=== PATIENT | female | born 1945 | race Caucasian/White ===

== ENCOUNTER 2019-07-29 10:40 | Emergency (ER) | payer MEDICARE ==
[2019-07-29 11:16] LABS: Absolute Lymphocytes (CBC) 1.4 K/uL (0.7-4.9); Basophils % 1.1 % (0-1.3); Hematocrit 39.5 % (36.0-45.0); Lymphocytes % 19.5 % (15.3-44.8)
[2019-07-29 11:22] LABS: Protime INR 1.07
[2019-07-29 11:39] LABS: ALT/SGPT 15 U/L (12-78); AST/SGOT 13 U/L (15-37); Albumin 3.5 g/dL (3.4-5.0); Alkaline Phosphatase 84 U/L (45-117); BUN Blood Urea Nitrogen 16 mg/dL (7-18); Bicarbonate 29 mmol/L (21-32); Bilirubin Direct 0.2 mg/dL (0-0.2); Bilirubin Total 0.5 mg/dL (0.2-1.0); Glucose Level 110 mg/dL (74-106); Magnesium 1.8 mg/dL (1.8-2.4); NT PRO-BNP 356 pg/mL (<125); Potassium 4.4 mmol/L (3.5-5.1); Protein, Total 7.2 g/dL (6.4-8.2); Sodium Level 139 mmol/L (136-145); Troponin (Emerg Dept Use Only) < 0.02 ng/mL (0.0-0.045)
--- NOTE | 2019-07-29 11:59 | RAD REPORT ---
EXAM DESCRIPTION: CT - Angio Aorta For Dissection - 07/29/2019 11:44 am CLINICAL HISTORY: Chest pain radiating to the back. SOB similar to symptoms prior to discection repair COMPARISON: No comparisonsChest For Pe Angio dated 06/23/2019 TECHNIQUE: CT angiography of the aorta was performed with MIPs. All CT scans are performed using dose optimization technique as appropriate and may include automated exposure control or mA/KV adjustment according to patient size. FINDINGS: A left aortic arch is present with normal branching pattern of the great vessels.Stent is present in the descending thoracic aorta.No evidence of stent leakage. No acute dissection or aneurys m. Atheromatous calcification is seen at the origin of the visceral arteries. The right renal artery is quite diminutive. 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 Limited contrast opacification of the pulmonary arterial tree is seen. Within this limitation, no martir ss evidence of pulmonary embolism. Several calcified granulomas are present bilaterally. Mild COPD. The liver demonstrates no focal mass or biliary dilatation.The spleen, pancreas, adrenal glands and k idneys are within normal limits for arterial phase imaging. No bowel obstruction, free fluid or abscess.No pathologic enlarged lymphadenopathy identified. Mild multilevel degenerative changes present throughout the thoracic and lumbar spine. Mild degenerat jarret anterolisthesis L4 on 5. IMPRESSION: No acute aortic finding is demonstrated.
--- NOTE | 2019-07-29 12:46 | ER ---
Nurse's Notes [facility] Name: Clare Oleary Age: 74 yrs Sex: Female : 1945 Arrival Date: 07/29/2019 Time: 10:43 Bed 19 Private MD: Diagnosis: Chest pain, unspecified;Shortness of breath;Anxiety disorder, unspecified Presentation: 07/29 10:54 Presenting complaint: Patient states: i was at [facility] and she sent tw2 me here because i had an abnormal Ekg, she sees me every week because in June 23 i had descending aortic dissection and was sent to [place]. 11:08 Transition of care: patient was not received from another setting of care. Onset of tw2 symptoms was July 29, 2019. Risk Assessment: Do you want to hurt yourself or someone else? Patient reports no desire to harm self or others. Initial Sepsis Screen: Does the patient meet any 2 criteria? No. Patient's initial sepsis screen is negative. Does the patient have a suspected source of infection? No. Patient's initial sepsis screen is negative. Care prior to arrival: None. 11:08 Method Of Arrival: Ambulatory tw2 11:08 Acuity: JUNE 3 tw2 Triage Assessment: 11:06 General: Appears in no apparent distress. obese, well groomed, Behavior is calm, tw2 cooperative, appropriate for age. Pain: Denies pain. Historical: - Allergies: 11:08 Triamterene; tw2 11:08 Hydrochlorothiazide; tw2 11:08 Codeine; tw2 - PMHx: 11:08 Myocardial infarction; descending aortic dissection; tw2 - PSHx: 11:08 cardiac stents; tw2 - Immunization history:: Adult Immunizations. - Social history:: Smoking status: . - Ebola Screening: : Patient denies travel to an Ebola-affected area in the 21 days before illness onset. Screenin:09 Abuse screen: Denies threats or abuse. Nutritional screening: No deficits noted. tw2 Tuberculosis screening: No symptoms or risk factors identified. Fall Risk Secondary diagnosis (15 points) impaired mobility. Assessment: 10:50 General: Appears in no apparent distress. obese, well groomed, Behavior is calm, tw2 cooperative, appropriate for age. Pain: Denies pain. Neuro: Level of Consciousness is awake, Oriented to person, place, time, situation. Cardiovascular: Heart tones S1 S2 Patient's skin is warm and dry. Respiratory: Airway is patent Respiratory effort is even, unlabored, Respiratory pattern is regular, symmetrical, Breath sounds are clear bilaterally. GI: No signs and/or symptoms were reported involving the gastrointestinal system. Abdomen is round obese, Bowel sounds present X 4 quads. : No signs and/or symptoms were reported regarding the genitourinary system. EENT: No signs and/or symptoms were reported regarding the EENT system. Derm: No signs and/or symptoms reported regarding the dermatologic system. Musculoskeletal: Range of motion: intact in all extremities. 12:26 Reassessment: Patient appears in no apparent distress at this time. No changes from tw2 previously documented assessment. Patient and/or family updated on plan of care and expected duration. Pain level reassessed. Patient is alert, oriented x 3, equal unlabored respirations, skin warm/dry/pink. 13:03 Reassessment: Patient appears in no apparent distress at this time. No changes from tw2 previously documented assessment. Patient and/or family updated on plan of care and expected duration. Pain level reassessed. Patient is alert, oriented x 3, equal unlabored respirations, skin warm/dry/pink. Vital Signs: 11:06 BP 110 / 93; Pulse 64; Resp 18; Temp 97.5(TE); Pulse Ox 95% on R/A; Pain 1/10; tw2 12:10 BP 110 / 93; Pulse 67; Resp 17; Pulse Ox 95% on R/A; tw2 13:03 BP 140 / 73; Pulse 67; Resp 17; Pulse Ox 99% on R/A; tw2 ED Course: 10:43 Patient arrived in ED. rg4 10:48 Nithya Eng, NOHEMI is Primary Nurse. tw2 10:54 Contreras Lara MD is Attending Physician. kdr 10:54 Arm band placed on. EKG completed in triage. Results shown to . tw2 10:55 Placed in gown. Bed in low position. Side rails up X 1. telemetry monitor on. Pulse ox tw2 on. NIBP on. 11:06 EKG done, by quick service technician. reviewed by Contreras Lara MD. at1 11:07 Initial lab(s) drawn, by me, sent to lab. Inserted saline lock: 20 gauge in right ms forearm, using aseptic technique. Blood collected. 11:09 Triage completed. tw2 11:45 Angio Aorta For Dissection In Process Unspecified. EDMS 13:03 XRAY Chest (1 view) In Process Unspecified. EDMS 13:03 No apparent distress. tw2 13:03 No provider procedures requiring assistance completed. IV discontinued, intact, tw2 bleeding controlled, No redness/swelling at site. Pressure dressing applied. Administered Medications: No medications were administered Outcome: 12:46 Discharge ordered by . kdr 13:03 Discharged to home via wheelchair, with family. tw2 13:03 Condition: stable 13:03 Discharge instructions given to patient, family, Instructed on discharge instructions, follow up and referral plans. Demonstrated understanding of instructions, follow-up care. 13:05 Patient left the ED. tw2 Signatures: Dispatcher [employer] EDMS Contreras Lara MD MD kdr Solis, Maria ms Symone Mena, gun synchronizer EKG Tat1 Nithya Eng RN RN tw2 Sharmila Glez 4
--- NOTE | 2019-07-29 12:47 | EDPHYS ---
Physician Documentation [facility] Name: Clare Oleary Age: 74 yrs Sex: Female : 1945 Arrival Date: 07/29/2019 Time: 10:43 Bed 19 Private MD: ED Physician Contreras Lara HPI: 07/29 11:22 This 74 yrs old Female presents to ER via Ambulatory with complaints of SOB kdr and chest intermittent CP for the last few days. 11:22 The patient has had intermittent CP and SOB for the last 2-3 days. She was seen in a kdr local clinic and then sent to the ED since the patient had some non-specific changes on the ECG. The patient states that she is having s/s similar to prior to her recent aortic dissection repair in the first june. Onset: The symptoms/episode began/occurred gradually, 3 day(s) ago. Severity of symptoms: At their worst the symptoms were mild in the emergency department the symptoms are unchanged. The patient has experienced a previous episode. The patient has been recently seen by a physician: As noted above. Historical: - Allergies: 11:08 Triamterene; tw2 11:08 Hydrochlorothiazide; tw2 11:08 Codeine; tw2 - PMHx: 11:08 Myocardial infarction; descending aortic dissection; tw2 - PSHx: 11:08 cardiac stents; tw2 - Immunization history:: Adult Immunizations. - Social history:: Smoking status: . - Ebola Screening: : Patient denies travel to an Ebola-affected area in the 21 days before illness onset. ROS: 11:22 Constitutional: Negative for fever, chills, and weight loss, Eyes: Negative for injury, kdr pain, redness, and discharge, Neck: Negative for injury, pain, and swelling, Abdomen/GI: Negative for abdominal pain, nausea, vomiting, diarrhea, and constipation, Back: Negative for injury and pain, : Negative for injury, bleeding, discharge, and swelling, MS/Extremity: Negative for injury and deformity, Skin: Negative for injury, rash, and discoloration, Neuro: Negative for headache, weakness, numbness, tingling, and seizure activity. 11:22 Psych: Negative for depression, anxiety, suicide ideation, homicidal ideation, and kdr hallucinations, Allergy/Immunology: Negative for hives, rash, and allergies, Endocrine: Negative for neck swelling, polydipsia, polyuria, polyphagia, and marked weight changes, Hematologic/Lymphatic: Negative for swollen nodes, abnormal bleeding, and unusual bruising. Exam: 11:22 Constitutional: This is a well developed, well nourished patient who is awake, alert, kdr and in no acute distress. Head/Face: Normocephalic, atraumatic. Eyes: Pupils equal round and reactive to light, extra-ocular motions intact. Lids and lashes normal. Conjunctiva and sclera are non-icteric and not injected. Cornea within normal limits. Periorbital areas with no swelling, redness, or edema. Neck: Trachea midline, no thyromegaly or masses palpated, and no cervical lymphadenopathy. Supple, full range of motion without nuchal rigidity, or vertebral point tenderness. No Meningismus. Chest/axilla: Normal chest wall appearance and motion. Nontender with no deformity. No lesions are appreciated. Cardiovascular: Regular rate and rhythm with a normal S1 and S2. No gallops, murmurs, or rubs. Normal PMI, no JVD. No pulse deficits. Respiratory: Lungs have equal breath sounds bilaterally, clear to auscultation and percussion. No rales, rhonchi or wheezes noted. No increased work of breathing, no retractions or nasal flaring. Abdomen/GI: Soft, non-tender, with normal bowel sounds. No distension or tympany. No guarding or rebound. No evidence of tenderness throughout. Back: No spinal tenderness. No costovertebral tenderness. Full range of motion. Skin: Warm, dry with normal turgor. Normal color with no rashes, no lesions, and no evidence of cellulitis. MS/ Extremity: Pulses equal, no cyanosis. Neurovascular intact. Full, normal range of motion. Neuro: Awake and alert, GCS 15, oriented to person, place, time, and situation. Cranial nerves II-XII grossly intact. Motor strength 5/5 in all extremities. Sensory grossly intact. Cerebellar exam normal. Normal gait. Psych: Awake, alert, with orientation to person, place and time. Behavior, mood, and affect are within normal limits. Vital Signs: 11:06 BP 110 / 93; Pulse 64; Resp 18; Temp 97.5(TE); Pulse Ox 95% on R/A; Pain 1/10; tw2 12:10 BP 110 / 93; Pulse 67; Resp 17; Pulse Ox 95% on R/A; tw2 13:03 BP 140 / 73; Pulse 67; Resp 17; Pulse Ox 99% on R/A; tw2 MDM: 11:22 Data reviewed: vital signs, nurses notes, lab test result(s), EKG, radiologic studies. kdr Counseling: I had a detailed discussion with the patient and/or guardian regarding: the historical points, exam findings, and any diagnostic results supporting the discharge/admit diagnosis, lab results, radiology results. 12:46 Patient medically screened. kdr 07/29 10:54 Order name: Basic Metabolic Panel; Complete Time: 12:42 kdr 07/29 10:54 Order name: CBC with Diff; Complete Time: 12:42 kdr 07/29 10:54 Order name: LFT's; Complete Time: 12:42 kdr 07/29 10:54 Order name: Magnesium; Complete Time: 12:42 kdr 07/29 10:54 Order name: NT PRO-BNP; Complete Time: 12:42 kdr 07/29 10:54 Order name: PT-INR; Complete Time: 12:42 kdr 07/29 10:54 Order name: Troponin (emerg Dept Use Only); Complete Time: 12:42 kdr 07/29 10:54 Order name: XRAY Chest (1 view) kdr 07/29 10:54 Order name: EKG; Complete Time: 10:56 kdr 07/29 10:54 Order name: Cardiac monitoring; Complete Time: 11:07 kdr 07/29 10:54 Order name: EKG - Nurse/Tech; Complete Time: 11:07 kdr 07/29 10:54 Order name: IV Saline Lock; Complete Time: 11:07 kdr 07/29 11:26 Order name: Angio Aorta For Dissection; Complete Time: 12:42 EDMS 07/29 10:54 Order name: Labs collected and sent; Complete Time: 11:07 kdr 07/29 10:54 Order name: O2 Per Protocol; Complete Time: 11:07 kdr 07/29 10:54 Order name: O2 Sat Monitoring; Complete Time: 11:07 kdr Administered Medications: No medications were administered Disposition: 07/29/19 12:46 Discharged to Home. Impression: Chest pain, unspecified, Shortness of breath, Anxiety disorder, unspecified. - Condition is Stable. - Discharge Instructions: Shortness of Breath, [id number], Nonspecific Chest Pain, [id number], Generalized Anxiety Disorder. - Medication Reconciliation Form, Thank You Letter form. - Follow up: Private Physician; When: 2 - 3 days; Reason: If symptoms return, Further diagnostic work-up, Recheck today's complaints, Continuance of care, Re-evaluation by your physician. - Problem is an ongoing problem. - Symptoms are unchanged. Signatures: Dispatcher [employer] [facility] Contreras Lara MD MD [facility] Nithya Eng RN RN tw2 Corrections: (The following items were deleted from the chart) 11:26 11:07 Chest Angio+CT.RAD.BRZ ordered. [facility] 13:05 12:46 07/29/2019 12:46 Discharged to Home. Impression: Chest pain, unspecified; tw2 Shortness of breath; Anxiety disorder, unspecified. Condition is Stable. Forms are Medication Reconciliation Form, Thank You Letter, Antibiotic Education, Prescription Opioid Use. Follow up: Private Physician; When: 2 - 3 days; Reason: If symptoms return, Further diagnostic work-up, Recheck today's complaints, Continuance of care, Re-evaluation by your physician. Problem is an ongoing problem. Symptoms are unchanged. kdr
--- NOTE | 2019-07-29 13:17 | RAD REPORT ---
EXAM DESCRIPTION: RAD - Chest Single View - 07/29/2019 1:02 pm CLINICAL HISTORY: Chest pain, abnormal EKG COMPARISON: June 23 portable chest TECHNIQUE: AP portable chest image was obtained 1233 hours . FINDINGS: Lung volumes are low. No peripheral mass or consolidation. Acute failure or volume overloa d are not suspected. Heart size is stable. No measurable pleural effusion and no pneumothorax. No acu te bony abnormality seen. Descending thoracic aortic stent has been placed since prior imaging. IMPRESSION: No acute cardiopulmonary process.
[2019-07-29 13:18] VITALS: TEMP 97.5
[2019-07-29 13:23] VITALS: BP 140/73; O2SAT 99
--- NOTE | 2019-07-29 17:17 | EKG ---
Test Date: 2019-07-29 Test Time: 10:54:00 Conservation Scientist: FREDO MEASUREMENT RESULTS: Intervals: Rate: 65 AL: 178 QRSD: 80 QT: 398 QTc: 413 [place]: P: 25 AL: 178 QRS: -34 T: 39 INTERPRETIVE STATEMENTS: Normal sinus rhythm Left axis deviation Septal infarct, age undetermined Inferior infarct, age undetermined Abnormal ECG Compared to ECG 06/23/2019 21:22:47 Left-axis deviation now present Myocardial infarct finding now present Sinus tachycardia no longer present Electronically Signed On 07-29-19 17:16:29 CDT by James Jose
== END 2019-07-29 13:05 | disposition home or self-care (01) ==
LOC: ER 10:40
DX: R07.9 Chest pain, unspecified (principal); F41.9 Anxiety disorder, unspecified; I25.2 Old myocardial infarction; Z88.5 Allergy status to narcotic agent; Z88.8 Allergy status to other drugs, medicaments and biological substances
CPT/HCPCS: 93005; 85025; 80048; 36415; 83735; 85610; 80076; 84484; 83880; 71275; 74175; 71045; 99284; Q9967

== ENCOUNTER 2024-08-21 00:12 | Inpatient (IN) | payer MEDICARE, OTHER ==
[2024-08-21 01:07] LABS: Absolute Basophils 0.1 K/uL (0-0.5); Absolute Eosinophils 0.1 K/uL (0-0.5); Absolute Lymphocytes (CBC) 0.9 K/uL (0.7-4.9); Absolute Monocytes 1.6 K/uL (0.1-1.3); Absolute Neutrophil 6.9 K/uL (1.8-8.0); Basophils % 0.6 % (0-1.3); Hematocrit 54.2 % (36.0-45.0); Hemoglobin 16.3 g/dL (12.0-15.0); Lymphocytes % 9.9 % (15.3-44.8); MCH 27.1 pg (27.0-35.0); MCHC 30.1 g/dL (32.0-36.0); MPV 9.8 fL (7.6-11.3); Monocytes % 16.3 % (3.3-12.3); Neutrophils % 72.2 % (41.7-73.7); Nucleated Red Blood Cells % 0.4 % (0-0); Platelets 214 thou/uL (152-406); RBC Red Blood Cell Count 6.02 M/uL (3.86-4.86); Red Cell Distribution Width 17.5 % (12.1-15.2)
[2024-08-21 01:20] LABS: Anion Gap 8.4 mEq/L (5.0-15.0); Potassium 4.4 mEq/L (3.5-5.1)
[2024-08-21 01:24] LABS: Troponin High Sensitivity 119.9 pg/mL (<58.9)
--- NOTE | 2024-08-21 01:49 | EDPHYS ---
Physician Documentation [facility] Name: Clare Oleary Age: 79 yrs Sex: Female : 1945 Arrival Date: 08/21/2024 Time: 00:12 Bed 14 Private MD: ED Physician Yo Cotton HPI: 08/21 00:15 This 79 yrs old Female presents to ER via Unassigned with complaints of ec2 Shortness Of Breath. 00:15 Patient arrives today for evaluation of shortness of breath. Patient reports that she ec2 has been having worsening shortness of breath along with a wet cough. Patient reports she has lower extremity edema as well. Is on Lasix 40 mg daily and states that she has been having decreased urine output. Patient reports no chest pain. . 00:17 EMS reports that they noted her oxygen level to be in the upper 80s and subsequently ec2 placed on oxygen.. Historical: - Allergies: 01:29 Codeine; rg5 01:29 hydrochlorothiazide; rg5 01:29 Triamterene; rg5 - PMHx: 01:29 Hypertensive disorder; Diabetes mellitus; Congestive heart failure; rg5 - PSHx: 01:29 Coronary artery bypass graft; Coronary Angioplasty; pacemaker; rg5 - Immunization history:: Adult Immunizations up to date. - Infectious Disease History:: Denies. - Social history:: Smoking status: Patient denies any tobacco usage or history of. ROS: 00:15 Constitutional: as per hpi ec2 Exam: 00:15 Constitutional: GEN: NAD Head: atraumatic Eyes: EOMI Ears: External ears are ec2 normal. CV: regular rate, 2+ bilateral lower extremity edema LUNGS: no respiratory distress ABD: non-distended SKIN: no evidence of rashes MSK: no evidence of trauma Vital Signs: 00:15 BP 106 / 63; Pulse 90; Resp 19; Temp 98(O); Pulse Ox 88% on 4 lpm NC; Weight 106.14 kg; rg5 Height 5 ft. 0 in. ; 00:30 BP 106 / 63; Pulse 89; Resp 19; Temp 98; Pulse Ox 89% on 4 lpm NC; rg5 01:00 BP 109 / 80; Pulse 89; Resp 18; Pulse Ox 82% on 15 lpm Non-rebreather mask; rg5 01:38 BP 122 / 82; Pulse 87; Resp 18; Temp 98(O); Pulse Ox 97% on bipap; rg5 02:07 BP 115 / 87; Pulse 85; Resp 20; Pulse Ox 96% on BiPAP; rg5 02:45 BP 90 / 68; Pulse 88; Resp 20; Pulse Ox 94% on BiPAP; rg5 03:37 BP 101 / 70; Pulse 81; Resp 20; Pulse Ox 94% on BiPAP; rg5 04:45 BP 122 / 76; Pulse 80; Resp 20; Pulse Ox 95% on BiPAP; rg5 00:15 Body Mass Index 45.70 (106.14 kg, 152.4 cm) rg5 MDM: 00:14 Medical Screening Exam initiated ec2 00:15 Data reviewed: vital signs. ED course: Patient arrives today for evaluation of ec2 shortness of breath. Examination remarkable for cardiopulmonary findings as noted above. Will obtain lab work, EKG, chest x-ray. Differential includes volume overload, ACS, electrolyte disturbances, anemia . 00:29 ED course: EKG independently reviewed and interpreted by me, shows nsr, rate of 90, ec2 LBBB noted, no acute ischemic changes noted. 01:19 ED course: Patient with saturations in the mid 80s with oxygen, placed patient on BiPAP.ec2 01:26 ED course: Metabolic profile shows renal dysfunction with a creatinine of 2.35 and a ec2 GFR of 21. BNP elevated at 9700. Troponin at 120. Will give the patient full dose aspirin, will give the patient Lasix. . 01:32 ED course: Patient with elevated troponin, I suspect this is likely secondary to demand ec2 ischemia given the patient's volume overload as well as shortness of breath and hypoxia. 01:46 ED course: On reassessment patient is breathing comfortably on BiPAP, no significant ec2 respiratory distress appreciated. Will admit for diuresis, volume overload.. 08/21 00:15 Order name: Basic Metabolic Panel; Complete Time: ec2 08/21 00:15 Order name: CBC with Diff; Complete Time: ec2 08/21 00:15 Order name: NT PRO-BNP; Complete Time: ec2 08/21 00:15 Order name: Troponin HS; Complete Time: ec2 08/21 03:33 Order name: Lactate w/ 2H reflex if indic. EDMS 08/21 03:33 Order name: Liver (Hepatic) Function EDMS 08/21 03:33 Order name: NT PRO-BNP EDMS 08/21 03:33 Order name: Thyroid Stimulating Hormone EDMS 08/21 03:33 Order name: Urinalysis w/ reflexes EDMS 08/21 03:33 Order name: Basic Metabolic Panel EDMS 08/21 03:33 Order name: Basic Metabolic Panel EDMS 08/21 03:33 Order name: CBC with Automated Diff EDMS 08/21 03:33 Order name: CBC with Automated Diff EDMS 08/21 03:33 Order name: Lipid Profile EDMS 08/21 03:33 Order name: Lipid Profile EDMS 08/21 03:33 Order name: Magnesium EDMS 08/21 03:33 Order name: Magnesium EDMS 08/21 03:33 Order name: Phosphorus EDMS 08/21 03:33 Order name: Phosphorus EDMS 08/21 03:33 Order name: PTT, Activated Partial Thromb EDMS 08/21 03:34 Order name: PTT, Activated Partial Thromb EDMS 08/21 03:34 Order name: Troponin High Sensitivity EDMS 08/21 03:34 Order name: Troponin High Sensitivity EDMS 08/21 03:34 Order name: Troponin High Sensitivity EDMS 08/21 03:34 Order name: Troponin High Sensitivity EDMS 08/21 00:15 Order name: XRAY Chest (1 view) ec2 08/21 03:33 Order name: CONS Physician Consult EDMS 08/21 00:15 Order name: Cardiac monitoring; Complete Time: 00:29 ec2 08/21 00:15 Order name: EKG - Nurse/Tech; Complete Time: 00:29 ec2 08/21 00:15 Order name: IV Saline Lock; Complete Time: 00:45 ec2 08/21 00:15 Order name: Labs collected and sent; Complete Time: 00:45 ec2 08/21 00:15 Order name: O2 Per Protocol; Complete Time: 00:29 ec2 08/21 00:15 Order name: O2 Sat Monitoring; Complete Time: 00:30 ec2 Administered Medications: 02:02 Drug: Furosemide IVP 80 mg IVP once; give over 2 minutes Route: IVP; Site: left forearm;rg5 02:45 Follow up: Response: No adverse reaction rg5 02:02 Drug: Aspirin PO Chewable Tablet 324 mg PO once; 81 mg tablets x 4 Route: PO; rg5 02:45 Follow up: Response: No adverse reaction rg5 Disposition: 01:47 Critical Care:. ec2 Disposition Summary: 08/21/24 01:48 Hospitalization Ordered Notes: Hospitalization Status: Inpatient Admission ec2 Provider: Brijesh Carbajal ec2 Condition: Stable ec2 Problem: an acute exacerbation ec2 Symptoms: have improved ec2 Bed/Room Type: Standard ec2 Location: Intensive Care Unit(08/21/24 04:26) cg Room Assignment: 6-(08/21/24 04:26) cg Diagnosis - Heart failure, unspecified ec2 - Acute respiratory failure ec2 - Elevated Troponin ec2 Forms: - Medication Reconciliation Form ec2 - SBAR form ec2 - Leadership Thank You Letter ec2 Critical care time excluding procedures: 01:47 Critical care time: Bedside Care: 30 minutes, Consultation: 5 minutes. Total time: 35 ec2 minutes Signatures: Dispatcher [employer] Shelby Pate, NOHEMI RN Clarice Alvarez rv1 Yo Cotton MD MD ec2 Amadeo Garcia RN RN rg5 Corrections: (The following items were deleted from the chart) 00:15 00:15 BASIC METABOLIC PANEL+C.LAB.BRZ ordered. EDMS EDMS 00:15 00:15 CBC+H.LAB.BRZ ordered. EDMS EDMS 00:15 00:15 PROBNP+C.LAB.BRZ ordered. EDMS EDMS 00:15 00:15 Troponin High Sensitivity+C.LAB.BRZ ordered. EDMS EDMS 00:15 00:15 Chest Single View+RAD.RAD.BRZ ordered. EDMS EDMS 01:36 01:29 PMHx: descending aortic dissection; 5 rg5 01:36 01:29 PMHx: Myocardial infarction; 5 rg5 01:36 01:29 PSHx: section; 5 rg5 01:36 01:29 PSHx: Appendectomy; 5 rg5 01:36 01:29 PSHx: section; 5 rg5 01:36 01:29 PSHx: Coronary Angioplasty; 5 rg5 03:38 01:48 ec2 rv1 04:25 03:38 402 rv1 cg 04: 01:48 Telemetry/[facility] ([facility]) ec2 cg 04: 04:25 cg cg
--- NOTE | 2024-08-21 01:49 | ER ---
Nurse's Notes [facility] Name: Clare Oleary Age: 79 yrs Sex: Female : 1945 Arrival Date: 08/21/2024 Time: 00:12 Bed 14 Private MD: Diagnosis: Heart failure, unspecified;Acute respiratory failure;Elevated Troponin Presentation: 08/21 00:15 Chief complaint: EMS states: patient called she is having shortness of breath and rg5 getting more weaker to move around, she also having bilateral edema on lower extremities. 00:15 Coronavirus screen: Vaccine status: Patient reports receiving the 1st dose of the Covid rg5 vaccine. Client denies travel out of the [place] in the last 14 days. Ebola Screen: Patient negative for fever greater than or equal to 101.5 degrees Fahrenheit, and additional compatible Ebola Virus Disease symptoms. Initial Sepsis Screen: Does the patient meet any 2 criteria? No. Patient's initial sepsis screen is negative. Does the patient have a suspected source of infection? No. Patient's initial sepsis screen is negative. Risk Assessment: Do you want to hurt yourself or someone else? Patient reports no desire to harm self or others. Onset of symptoms was August 20, 2024. Care prior to arrival: Medication(s) given: Albuterol Neb x 1, Oxygen administered. via nasal cannula. 00:15 Method Of Arrival: EMS: [facility] rg5 00:15 Acuity: JUNE 3 rg5 Triage Assessment: 01:29 General: Appears in no apparent distress. uncomfortable, Behavior is calm, cooperative. rg5 Pain: Denies pain. EENT: No signs and/or symptoms were reported regarding the EENT system. Neuro: Level of Consciousness is awake, alert, Oriented to person, place, time. Cardiovascular: Patient's skin is warm and dry. Rhythm is sinus rhythm. Respiratory: Reports shortness of breath cough that is productive, Airway is patent Trachea midline Respiratory effort is even, unlabored, Respiratory pattern is regular, symmetrical, Onset: The symptoms/episode began/occurred yesterday, the patient has mild shortness of breath. GI: Abdomen is obese, Bowel sounds present X 4 quads. Abd is soft and non tender. : No signs and/or symptoms were reported regarding the genitourinary system. Derm: Skin is intact, Skin is dry, Skin is normal, Skin temperature is warm. Musculoskeletal: Circulation, motion, and sensation intact. Range of motion: intact in all extremities, Swelling present in right leg and left leg. Historical: - Allergies: 01:29 Codeine; rg5 01:29 hydrochlorothiazide; rg5 01:29 Triamterene; rg5 - PMHx: :29 Hypertensive disorder; Diabetes mellitus; Congestive heart failure; rg5 - PSHx: :29 Coronary artery bypass graft; Coronary Angioplasty; pacemaker; rg5 - Immunization history:: Adult Immunizations up to date. - Infectious Disease History:: Denies. - Social history:: Smoking status: Patient denies any tobacco usage or history of. Screenin:30 [facility] ED Fall Risk Assessment (Adult) History of falling in the last 3 months, rg5 including since admission Yes- single mechanical fall (1 pt) Confusion or Disorientation No (0 pts) Intoxicated or Sedated No (0 pts) Impaired Gait Yes (1 pt) Mobility Assist Device Used Yes (1 pt) Altered Elimination Yes (1 pt) Score/Fall Risk Level 3 or more points = High Risk Oriented to surroundings, Maintained a safe environment, Hourly rounding (assess needs \T\ fall precautionary measures) done. Abuse screen: Denies threats or abuse. Nutritional screening: No deficits noted. Tuberculosis screening: No symptoms or risk factors identified. Assessment: 00:35 Reassessment: No changes from previously documented assessment. Patient and/or family rg5 updated on plan of care and expected duration. Pain level reassessed. Patient is alert, oriented x 3, equal unlabored respirations, skin warm/dry/pink. 01:35 Reassessment: No changes from previously documented assessment. Patient and/or family rg5 updated on plan of care and expected duration. Pain level reassessed. Cardiovascular: Reports shortness of breath. Cardiovascular: Patient's skin is warm and dry. Respiratory: Airway is patent Trachea midline Breath sounds are coarse bilaterally. 02:25 Reassessment: Patient and/or family updated on plan of care and expected duration. Pain rg5 level reassessed. Patient is alert, oriented x 3, equal unlabored respirations, skin warm/dry/pink. Patient states symptoms have improved. 03:33 Reassessment: Patient and/or family updated on plan of care and expected duration. Pain rg5 level reassessed. Patient is alert, oriented x 3, equal unlabored respirations, skin warm/dry/pink. Patient states symptoms have improved. Vital Signs: 00:15 BP 106 / 63; Pulse 90; Resp 19; Temp 98(O); Pulse Ox 88% on 4 lpm NC; Weight 106.14 kg; rg5 Height 5 ft. 0 in. ; 00:30 BP 106 / 63; Pulse 89; Resp 19; Temp 98; Pulse Ox 89% on 4 lpm NC; rg5 01:00 BP 109 / 80; Pulse 89; Resp 18; Pulse Ox 82% on 15 lpm Non-rebreather mask; rg5 01:38 BP 122 / 82; Pulse 87; Resp 18; Temp 98(O); Pulse Ox 97% on bipap; rg5 02:07 BP 115 / 87; Pulse 85; Resp 20; Pulse Ox 96% on BiPAP; rg5 02:45 BP 90 / 68; Pulse 88; Resp 20; Pulse Ox 94% on BiPAP; rg5 03:37 BP 101 / 70; Pulse 81; Resp 20; Pulse Ox 94% on BiPAP; rg5 04:45 BP 122 / 76; Pulse 80; Resp 20; Pulse Ox 95% on BiPAP; rg5 00:15 Body Mass Index 45.70 (106.14 kg, 152.4 cm) rg5 ED Course: 00:14 Patient arrived in ED. ec2 00:14 Yo Cotton MD is Attending Physician. ec2 00:29 Amadeo Garcia, NOHEMI is Primary Nurse. rg5 00:30 Patient has correct armband on for positive identification. Bed in low position. Call rg5 light in reach. Side rails up X 1. Adult w/ patient. 00:30 No provider procedures requiring assistance completed. Inserted saline lock: 20 gauge rg5 in left forearm, using aseptic technique. Blood collected. Flushed with 10 mL NS. 00:50 XRAY Chest (1 view) In Process Unspecified. EDMS 01:29 Triage completed. rg5 01:29 Arm band placed on right wrist. EKG completed in triage. Results shown to MD. rg5 01:48 Brijesh Carbajal is Hospitalizing Provider. ec2 04:47 Provided Education on: needs for admit. rg5 04:47 Patient admitted, IV remains in place. rg5 Administered Medications: 02:02 Drug: Furosemide IVP 80 mg IVP once; give over 2 minutes Route: IVP; Site: left forearm;rg5 02:45 Follow up: Response: No adverse reaction rg5 02:02 Drug: Aspirin PO Chewable Tablet 324 mg PO once; 81 mg tablets x 4 Route: PO; rg5 02:45 Follow up: Response: No adverse reaction rg5 Medication: 00:30 VIS not applicable for this client. rg5 Outcome: 01:48 Decision to Hospitalize by Provider. ec2 04:46 Admitted to ICU accompanied by nurse, via stretcher, with oxygen, rg5 04:46 Condition: stable 04:46 Instructed on the need for admit, 05:27 Patient left the ED. rg5 Signatures: Dispatcher [employer] EDMS Yo Cotton MD MD ec2 Amadeo Garcia RN RN rg5 Corrections: (The following items were deleted from the chart) 01:36 01:29 PMHx: descending aortic dissection; rg5 rg5 01:36 01:29 PMHx: Myocardial infarction; rg5 rg5 01:36 01:29 PSHx: section; rg5 rg5 01:36 01:29 PSHx: Appendectomy; rg5 rg5 01:36 01:29 PSHx: section; rg5 rg5 01:36 01:29 PSHx: Coronary Angioplasty; rg5 rg5 03:51 00:15 BP 106 / 63; Pulse 90bpm; Resp 19bpm; Pulse Ox 88% 4 lpm Nasal Cannula; Temp 98F rg5 Oral; rg5 04:52 01:29 Musculoskeletal: Circulation, motion, and sensation intact. Range of motion: rg5 intact in all extremities, rg5 04:56 04:45 BP 122 / 76; Pulse 80bpm; Resp 18bpm; Pulse Ox 95% BiPAP; rg5 rg5 04:57 02:07 BP 115 / 87; Pulse 85bpm; Resp 18bpm; Pulse Ox 96% BiPAP; rg5 rg5 04:57 02:45 BP 90 / 68; Pulse 88bpm; Resp 19bpm; Pulse Ox 94% BiPAP; 5 rg5 04:57 03:37 BP 101 / 70; Pulse 81bpm; Resp 18bpm; Pulse Ox 94% BiPAP; rg5 rg5
[2024-08-21] MEDS ORDERED: ASPIRIN 81 MG CHEWABLE TABLET ONE (01:53)
[2024-08-21] MEDS ORDERED: FUROSEMIDE 40 MG/4 ML VIAL ONE (01:53)
--- NOTE | 2024-08-21 03:38 | RAD REPORT ---
EXAM: XR Chest, 1 View CLINICAL HISTORY: Cough, dyspnea. TECHNIQUE: Frontal view of the chest. COMPARISON: No relevant prior studies available. FINDINGS: Lungs: Calcified granuloma on the right. Left basilar opacification partially obscuring the cardiac border. Pleural space: Possible left pleural effusion. No pneumothorax. Heart: The cardiac silhouette is moderately enlarged, in part accentuated by portable technique. Mediastinum: Calcified mediastinal and hilar lymph nodes. Bones/joints: Moderate to severe degenerative changes at the glenohumeral joints bilaterally. Multi level spondylosis. No acute fracture. Vasculature: Descending thoracic aortic endovascular stent. Tubes, lines and devices: Left chest wall dual-lead pacer. Upper abdomen: Elevation of the right hemidiaphragm. IMPRESSION: Left basilar opacification (atelectasis and/or infiltrate). Possible left pleural effusion. Electronically signed by: Moe Mc MD 08/21/2024 02:42 AM CDT RP Due to temporary technical issues with the PACS/[employer] reporting system, reports are being gus d by the in-house radiologist without review as a courtesy to ensure prompt reporting the interpreting radiologist is fully responsible for the content of the report. Transcribed Date/Time: 08/21/2024 3:37 AM
--- NOTE | 2024-08-21 03:42 | P.HP ---
Certification for Inpatient With expected LOS: <2 Midnights Practitioner: I am a practitioner with admitting privileges, knowledge of patient current condition, hospital course, and medical plan of care. Services: Services provided to patient in accordance with Admission requirements found in Title 42 Section 412.3 of the Code of Federal Regulations Patient History Date of Service: 08/21/24 Reason for admission: hypoxia, heart failure exacerbation History of Present Illness: 79-year-old female with a past medical history of hypertension, DM, CHF, and aortic dissection repair (06/2019) presented to the emergency room complaining of shortness of breath for unknown amount of days. The patient's family member is present at bedside, and provides the majority of this history. The patient is unable to provide a history at this time. Upon arrival to the emergency department the patient was placed on BiPAP for hypoxia, given Lasix, and ASA 325 mg. Also the patient has elevated troponins. It is unknown when the patient's last CHF exacerbation was, but the patient's family member believes it was sometime last year. Allergies codeine [Codeine] Allergy (Severe, Verified 04/10/17 11:24) Nausea/Vomiting hydrochlorothiazide [From Maxzide] Allergy (Severe, Verified 04/10/17 11:24) Anaphylaxis triamterene [From Maxzide] Allergy (Severe, Verified 04/10/17 11:24) Anaphylaxis maxide Allergy (Severe, Uncoded 04/10/17 11:24) Anaphylaxis Home Medications: Amlodipine [Norvasc*] 5 mg PO DAILY WITH BREAKFAST #30 tab 07/19/16 Furosemide [Lasix*] 40 mg PO BID #60 tab 07/19/16 Levothyroxine [Synthroid*] 0.1 mg PO [id number] #30 tab 07/19/16 Losartan Potassium [Cozaar*] 100 mg PO DAILY #60 tablet 07/19/16 Metformin ER [Glucophage ER*] 500 mg PO DAILY #30 tab.sa 07/19/16 Potassium Oral Tab [Klor-Con 10 mEq Tab*] 20 meq PO DAILY #60 tab 07/19/16 Pravastatin [Pravachol*] 1 tab PO BEDTIME #30 tab 07/19/16 carvediloL [Coreg*] 25 mg PO BID #60 tab 07/19/16 Aspirin/Calcium Carbonate/Mag [Aspirin Buffered 325 mg Tab] 325 mg PO BID 02/16/17 Calcium Carbonate [Calcium] 600 mg PO DAILY 02/16/17 Ipratropium Mdi [Atrovent Hf Inhaler*] 200 puff IH TID PRN 02/16/17 Ubidecarenone/Vitamin E Mixed [[id number] E 100 mg-10 Unit Sfg] 1 each PO DAILY 02/16/17 raNITIdine HCl [Ranitidine HCl] 75 mg PO DAILY 02/16/17 - Past Medical/Surgical History Diabetic: Yes -: HTN -: Hypothyroid -: Hyperlipidemia -: CHF -: DM -: R total knee -: Reaux-Y bypass -: ACL repair 1979 -: Tonsillectomy -: aortic dissection repair 06/2019 - Family History Father -: Heart disease, Cancer Mother -: Cancer Sister -: Heart disease - Social History Smoking Status: Unknown if ever smoked Alcohol use: No CD- Drugs: No Caffeine use: Yes Review of Systems Respiratory: Cough, Shortness of Breath Cardiovascular: Edema Physical Examination - Vital Signs Temperature: 98 F Blood Pressure: 92/79 Pulse: 80 Respirations: 18 Pulse Ox (%): 94 - Physical Exam General: Mild distress HEENT: Atraumatic, Normocephalic Neck: No Thyromegaly Respiratory: Crackles/rales, Rhonchi/gurgles Cardiovascular: No gallops, No rubs, Edema Gastrointestinal: Normal bowel sounds, Non-distended Musculoskeletal: Swelling (b/l lower extremities), Warmth Neurological: Abnormal strength, Abnormal sensation - Studies Laboratory Data (last 24 hrs) 08/21/24 08/21/24 00:45 00:45 WBC 9.60 Hgb 16.3 H Hct 54.2 H Plt Count 214 Sodium 139 Potassium 4.4 BUN 46 H Creatinine 2.35 H Glucose 163 H Assessment and Plan - Problems (Diagnosis) (1) Hypoxia Current Visit: Yes Status: Acute (2) Heart failure Current Visit: Yes Status: Acute - Plan Hypoxia- Admit to the ICU Remain on BiPAP CXR revealed possible left-sided pleural effusion (awaiting final radiology read) Insert external female catheter (purewick) to monitor urinary output Heart failure: IV Lasix twice daily ASA 25 mg daily Trend troponins and other lab work Trend BNP - Advance Directives Does patient have a Living Will: No Does patient have a Durable POA for Healthcare: No - Code Status/Comfort Care Code Status: Full Code
[2024-08-21 05:12] LABS: Albumin 3.1 g/dL (3.4-5.0); Albumin/Globulin Ratio 0.8 (1.1-1.8); Bilirubin Direct 0.3 mg/dL (0-0.2); Bilirubin Indirect, Calculated 0.2 mg/dL (0.2-0.8); Bilirubin Total 0.5 mg/dL (0.2-1.0); Globulin 3.7 g/dL (2.3-3.5); Protein, Total 6.8 g/dL (6.4-8.2); Thyroid Stimulating Hormone 2.27 uIU/mL (0.358-3.740)
[2024-08-21] MEDS: CALCIUM CARBONATE 500 MG TAB PO SCH (09:00)
[2024-08-21] MEDS ORDERED: HOME MED 1 EA UNK (Rosuvastatin Calcium [Crestor] 20 MG Tablet) PO SCH (09:00)
[2024-08-21] MEDS: FERROUS SULFATE 325 MG TAB PO SCH (09:00)
[2024-08-21] MEDS: allopurinoL 300 MG TAB PO SCH (09:00)
[2024-08-21] MEDS: PANTOPRAZOLE 40MG TABLET PO SCH (09:00)
[2024-08-21] MEDS: ASPIRIN 325 MG TAB PO SCH (09:00)
[2024-08-21] MEDS: SERTRALINE HCL 100 MG TAB PO SCH (09:00)
[2024-08-21] MEDS ORDERED: PANTOPRAZOLE 20 MG PO SCH (09:00)
[2024-08-21] MEDS: POTASSIUM CL SA 10 MEQ TAB PO SCH (09:00)
[2024-08-21] MEDS: HEPARIN 5000 UNIT/ML 1 ML VIAL SQ SCH (09:11)
[2024-08-21] MEDS: FUROSEMIDE 40 MG/4 ML VIAL IV SCH (09:11)
[2024-08-21 10:58] LABS: Blood O2 Saturation 95.6 % (92-98.5)
[2024-08-21 10:59] LABS: Arterial Blood Carboxyhemoglob 1.1 % (0-1.5); Blood Gas Oxyhemoglobin 93.8 % (94-97); Blood Gas THB 17.6 g/dl (12-18)
[2024-08-21] MEDS: Levofloxacin 250mg IV 250 MG/50 ML BAG IV SCH (12:11)
[2024-08-21] MEDS: FUROSEMIDE 100 MG in NA CHLORIDE 0.9% 90 ML IV SCH (12:12)
--- NOTE | 2024-08-21 14:04 | P.PN ---
Subjective Date of Service: 08/21/24 Chief Complaint: hypoxia, heart failure exacerbation Patient remains lethargic, confused. Currently on BiPAP however noted low tidal volumes. Arterial blood gas that showed respiratory acidosis and CO2 retention. No recorded fever. Physical Examination - Vital Signs Temperature: 96.8 F Blood Pressure: 106/78 Pulse: 80 Respirations: 18 Pulse Ox (%): 93 - Studies Laboratory Data (last 24 hrs) 08/21/24 08/21/24 00:45 00:45 WBC 9.60 Hgb 16.3 H Hct 54.2 H Plt Count 214 Sodium 139 Potassium 4.4 BUN 46 H Creatinine 2.35 H Glucose 163 H Assessment And Plan - Plan Physical examination General: Alert and oriented x1, NAD, lethargic. HEENT: Conjunctiva not pale, anicteric sclera, BiPAP in place. Neck: Supple, no elevated JVD Heart: Heart sounds 1 and 2 normal, regular rhythm, normal rate, no pedal edema Lungs: Clear to auscultation bilaterally, diminished breath sounds bilaterally, no rhonchi or crackles. Abdomen: Soft, nondistended, nontender, normal bowel sounds. Extremities: No tenderness, no deformity Skin: Normal skin turgor, no rash, no nodules or ulcers. Neuro: Patient moves all extremities spontaneously, Psychiatry: Confused, no agitation. Assessment and plan Acute respiratory failure with hypoxia and hypercapnia Respiratory acidosis COPD exacerbation Patient admitted to the ICU. Continue BiPAP, titrate IPAP/EPAP Serial arterial blood gas. Low threshold for intubation for respiratory acidosis and CO2 retention. Pulmonary consult IV steroid, scheduled bronchodilators, antibiotics. Acute kidney injury Patient started on Lasix drip by nephrology. Nephrology input appreciated. Monitor renal function. Acute on chronic diastolic heart failure Elevated BNP Chest x-ray shows pleural effusion Patient started on Lasix drip Monitor intake and output. Diabetes mellitus type 2 Insulin sliding scale for glucose management. Watch for steroid-induced hyperglycemia. Elevated troponin Likely demand ischemia secondary to hypoxia. Troponin trended down. Cardiology consulted Follow echocardiogram. Hypothyroidism Continue home dose Synthroid. TSH within normal limit. DVT prophylaxis: Heparin subQ Advanced directive: Full code.
--- NOTE | 2024-08-21 14:11 | RAD REPORT ---
EXAMINATION: US RENAL ULTRASOUND CLINICAL INDICATION: STEVE TECHNIQUE: Real-time ultrasonography of the abdomen was performed. COMPARISON: No prior exam. FINDINGS: Examination is somewhat limited due to patient body habitus. RIGHT KIDNEY: Right renal length measurement: 10.8 x 4.9 x 4.8 cm. Normal in echogenicity and size. N o calculus, solid mass or hydronephrosis. Small benign right renal cyst LEFT KIDNEY: Left renal length measurement: 11.0 x 5.8 cm. Normal in echogenicity and size. No calcul us, solid mass or hydronephrosis. URINARY BLADDER: Incompletely distended without gross abnormality detected. ADDITIONAL FINDINGS: None. IMPRESSION: Unremarkable renal ultrasound. Small benign right renal cyst.
--- NOTE | 2024-08-21 14:47 | EKG ---
Test Date: 2024-08-21 Test Time: 00:26:14 Manager Hardware: ZANE MEASUREMENT RESULTS: Intervals: Rate: 90 GA: 172 QRSD: 180 QT: 444 QTc: 543 [place]: P: 58 GA: 172 QRS: -76 T: 89 INTERPRETIVE STATEMENTS: Normal sinus rhythm Left axis deviation Left bundle branch block Abnormal ECG Compared to ECG 07/29/2019 10:54:00 Left bundle-branch block now present Myocardial infarct finding no longer present Electronically Signed On 08-21-24 14:45:33 CDT by Chad Hartmann
--- NOTE | 2024-08-21 15:59 | P.CNS ---
Date of Consult: 08/21/24 Reason for Consult: Resp failure Chief Complaint: hypoxia, heart failure exacerbation History of Present Illness: Pt is 79 yrs of age Non verbal on BIPAP admitted with hypoxic hypercapneic resp failure with gen anasarca and decubitus ulcers Allergies codeine [Codeine] Allergy (Severe, Verified 04/10/17 11:24) Nausea/Vomiting hydrochlorothiazide [From Maxzide] Allergy (Severe, Verified 04/10/17 11:24) Anaphylaxis triamterene [From Maxzide] Allergy (Severe, Verified 04/10/17 11:24) Anaphylaxis maxide Allergy (Severe, Uncoded 04/10/17 11:24) Anaphylaxis Home Medications: Metformin ER [Glucophage ER*] 500 mg PO DAILY #30 tab.sa 07/19/16 Potassium Oral Tab [Klor-Con 10 mEq Tab*] 20 meq PO DAILY #60 tab 07/19/16 Calcium Carbonate [Calcium] 600 mg PO DAILY 02/16/17 Allopurinol 300 mg PO DAILY 08/21/24 Ferrous Sulfate [Iron] 325 mg PO DAILY 08/21/24 Furosemide 40 mg PO BID 08/21/24 Levothyroxine [Synthroid] 112 mcg PO [id number] 08/21/24 Pantoprazole 20 Mg 1 tab PO DAILY 08/21/24 Rosuvastatin Calcium [Crestor] 20 mg PO DAILY 08/21/24 Sertraline [Zoloft] 100 mg PO DAILY 08/21/24 carvediloL [Coreg*] 6.25 mg PO BID 08/21/24 - Past Medical/Surgical History Diabetic: Yes -: HTN -: Hypothyroid -: Hyperlipidemia -: CHF -: DM -: R total knee -: Reaux-Y bypass -: ACL repair 1979 -: Tonsillectomy -: aortic dissection repair 06/2019 -: pacemaker - Family History Father Medical History: Heart disease, Cancer Mother Medical History: Cancer Sister Medical History: Heart disease - Social History Smoking Status: Never smoker Alcohol use: No CD- Drugs: No Caffeine use: Yes Place of Residence: Home Review of Systems is unable to be obtained Physical Examination Temp Pulse Resp BP Pulse Ox 96.8 F 72 19 103/65 91 08/21/24 14:16 08/21/24 15:00 08/21/24 15:00 08/21/24 15:00 08/21/24 15:00 General: Alert, Cooperative Neck: Supple Respiratory: Clear to auscultation bilaterally Cardiovascular: Edema (2 plus edema with bilateral LE edema) Gastrointestinal: Normal bowel sounds, Soft and benign Laboratory Data (last 24 hrs) 08/21/24 08/21/24 00:45 00:45 WBC 9.60 Hgb 16.3 H Hct 54.2 H Plt Count 214 Sodium 139 Potassium 4.4 BUN 46 H Creatinine 2.35 H Glucose 163 H - Problems (1) Respiratory failure with hypoxia and hypercapnia Current Visit: Yes Status: Acute Plan: Pt admitted with hypoxic hypercapneic resp failure and anasarca. Hx of CHF/ on Lasix at home . Renal failure BNP > than 9000,TSH and corticosl satfisfactory/ pt on lasix drip continue to monitor. TSH normal CXRY cardiomeg poss left basilar effusion/ polycythemic repeat CBC Qualifiers: Chronicity: unspecified Qualified Code(s): J96.91 - Respiratory failure, unspecified with hypoxia; J96.92 - Respiratory failure, unspecified with hypercapnia
--- NOTE | 2024-08-21 16:10 | CON ---
Date of Consultation: 08/21/2024 Reason For Consultation: Elevated BUN and creatinine, fluid management, overvolume. History Of Present Illness: All the information has been obtained from the record as the patient on BiPAP, poor historian. This is a 79-year-old female with significant past medical history of hypertension, diabetes complicated with neuropathy, congestive heart failure, aortic repair secondary to dissection. Patient was in her regular state of health. Patient found to have shortness of breath by the family member, called EMS, found to be overvolume, hypoxemic. The patient was placed on BiPAP. Primary workup in the hospital, found to be overvolume with pleural effusion. Patient was started on diuresis. The patient's blood pressure was marginal. Lab showed elevation in BUN and creatinine. For that reason, we have been consulted. Reviewing the record for the patient, creatinine back in July 2019 within normal limits 0.9 with GFR of 57. The patient's home medications include metformin and Lasix. Past Medical History: Includes: 1. Congestive heart failure. 2. Hypertension. 3. Hyperlipidemia. 4. Diabetes complicated with neuropathy. 5. Aortic repair. Past Surgical History: Includes ACLS repair, tonsillectomy, aortic dissection repair. Family History: Positive for cancer and CAD. Social History: Denied smoking. Denied drinking. Denied drugs abuse. Review of Systems: None obtainable. Home Medications: Includes amlodipine, Lasix, levothyroxine, losartan, metformin, KCl, aspirin, calcium carbonate, breathing treatment, Zoloft. Physical Examination: General: When I saw the patient, patient on BiPAP. Vital Signs: Blood pressure 111/64, pulse of 77, afebrile. Chest: Crackles, bilateral. Heart: S1, S2. Systolic murmur. Abdomen: Soft, nontender. Extremities: Plus edema, erythema bilateral. Neurologic: Alert, poorly responsive. No focality. Laboratory Data: Back in July 2019, creatinine 0.9. Today, lab data: Sodium 139, potassium 4.4, bicarb 32, BUN 46, creatinine 2.3, GFR 21, calcium 9.8. WBC 9.6, hemoglobin 16.3. Urinalysis negative for infection. Current Medications: The patient on, includes ferrous sulfate, calcium carbonate, rosuvastatin, Lasix 40 b.i.d., pantoprazole, levothyroxine. Assessment And Plan: 1. Acute kidney injury secondary to cardiorenal, looked to me on the overvolume side with the marginal low blood pressure. I am going to discontinue Lasix, place the patient on Lasix drip and we will follow up the patient. I am going to send for full workup and we will monitor. 2. Anasarca possible secondary to cardiorenal. We will send for echocardiogram, send for TSH and protein creatinine/start the patient on Lasix drip. 3. Hypertension, currently blood pressure on the lower side with the presence of acute kidney injury. Discontinue losartan and we will monitor. 4. Shock possible secondary to cardiogenic/sepsis secondary to cellulitis. We will start Lasix drip. We will monitor recovery. Hold all blood pressure medications. Start antibiotic. We will send for cortisol. 5. Cellulitis. Start Levaquin and we will follow up. 6. Septic shock, complicated with acute kidney injury secondary to ATN, secondary to poor perfusion ATN, as above. 7. Diabetes with the presence of acute kidney injury. Discontinue metformin. Thank you, Dr. Carbajal, for allowing us to participate in the care of your patient. Time spent examining the patient [id number] reviewing data lab and the radiology placing order discussing the case with the patient/family member, discussing the case with the steam trap man including hospitalist and nursing staff more than 75 minutes NNEKA Voice ID: [id number] Report ID: [id number]
[2024-08-21 17:18] LABS: Specific Gravity 1.017 (1.005-1.030); Sqamous Epithelial <5 /HPF (None Seen); Urine Bacteria 20-50 /HPF (<20); Urine Bilirubin NEGATIVE (Negative); Urine Blood Negative (Negative); Urine Clarity Extremely Turbid (Clear); Urine Color Yellow (Yellow); Urine Crystals Unidentified Few /HPF (None Seen); Urine Culture Reflex Order NOT NEEDED; Urine Glucose NEGATIVE (Negative); Urine Ketones NEGATIVE (Negative); Urine Microscopic Reflex YN ORDER UMIC; Urine Mucus Slight /HPF (None Seen); Urine Nitrite NEGATIVE (Negative); Urine Protein 2+ (Negative); Urine RBC <5 /HPF (None Seen); Urine Urobilinogen 1+ (Normal); Urine WBC <5 /HPF (<5)
[2024-08-21 17:19] LABS: Blood Gas Oxyhemoglobin 48.7 % (94-97); Blood O2 Saturation 49.6 % (92-98.5)
[2024-08-21 17:20] LABS: Blood Gas THB 17.2 g/dl (12-18)
[2024-08-21 17:23] LABS: Arterial Blood Carboxyhemoglob 0.8 % (0-1.5); Blood Gas Oxyhemoglobin 42.6 % (94-97); Blood Gas THB 17.1 g/dl (12-18); Blood O2 Saturation 43.3 % (92-98.5)
[2024-08-21 17:23] LABS: UR PROTEIN 143.1 mg/dL (<11.9); Urine Protein/Creatinine Ratio 0.84 ratio (<0.15)
[2024-08-21] MEDS: ROSUVASTATIN 10 MG TAB PO SCH (20:11)
[2024-08-22 05:10] LABS: Absolute Basophils 0.1 K/uL (0-0.5); Absolute Eosinophils 0.2 K/uL (0-0.5); Absolute Lymphocytes (CBC) 0.9 K/uL (0.7-4.9); Absolute Monocytes 1.3 K/uL (0.1-1.3); Absolute Neutrophil 5.7 K/uL (1.8-8.0); Basophils % 0.9 % (0-1.3); Eosinophils % 2.9 % (0-4.4); Hematocrit 51.2 % (36.0-45.0); Hemoglobin 15.5 g/dL (12.0-15.0); Lymphocytes % 10.6 % (15.3-44.8); MCH 27.8 pg (27.0-35.0); MCHC 30.3 g/dL (32.0-36.0); MCV 91.8 fL (80-100); MPV 10.2 fL (7.6-11.3); Neutrophils % 69.6 % (41.7-73.7); Platelets 189 thou/uL (152-406); RBC Red Blood Cell Count 5.58 M/uL (3.86-4.86); Red Cell Distribution Width 17.4 % (12.1-15.2)
[2024-08-22 05:44] LABS: Albumin 2.8 g/dL (3.4-5.0); Anion Gap 8.3 mEq/L (5.0-15.0); Magnesium 2.3 mg/dL (1.6-2.4); Phosphorus 5.1 mg/dL (2.5-4.9); Potassium 4.3 mEq/L (3.5-5.1); Thyroid Stimulating Hormone 1.07 uIU/mL (0.358-3.740); Uric Acid 4.8 mg/dL (2.6-6.0)
[2024-08-22 05:46] LABS: Troponin High Sensitivity 72.4 pg/mL (<58.9)
[2024-08-22] MEDS: LEVOTHYROXINE SOD 0.112 MG TAB PO SCH (05:54)
[2024-08-22 07:30] LABS: Arterial Blood Carboxyhemoglob 0.8 % (0-1.5); Blood Gas Oxyhemoglobin 94.2 % (94-97); Blood O2 Saturation 95.8 % (92-98.5)
[2024-08-22 07:31] LABS: Blood Gas THB 16.6 g/dl (12-18)
--- NOTE | 2024-08-22 08:23 | ECHO ---
HEIGHT: 0 ft 5 in WEIGHT: 283 lb 3.2 oz DATE OF STUDY: 08/21/[address]: Heber Mejia MD 2-DIMENSIONAL: YES M.MODE: YES DOPPLER: YES COLOR FLOW: YES TDS: PORTABLE: YES DEFINITY: BUBBLE STUDY: DIAGNOSIS: CONGESTIVE HEART FAILURE CARDIAC HISTORY: CATHERIZATION: NO SURGERY: NO PROSTHETIC VALVE: NO PACEMAKER: NO MEASUREMENTS (cm) DIASTOLIC (NORMALS) SYSTOLIC (NORMALS) IVSd 1.2 (0.6-1.2) LA Diam 3.5 (1.9-4.0) LVEF 50-55% LVIDd 3.5 (3.5-5.7) LVIDs 2.5 (2.0-3.5) %FS 27% LVPWd 1.3 (0.6-1.2) Ao Diam 3.1 (2.0-3.7) 2 DIMENSIONAL ASSESSMENT: RIGHT ATRIUM: ENLARGED LEFT ATRIUM: NORMAL RIGHT VENTRICLE: DILATED RIGHT ATRIUM LEFT VENTRICLE: LEFT VENTRICULAR HYPERTROPHY TRICUSPID VALVE: MILD TRICUSPID REGURGITATION MITRAL VALVE: MODERATE MITRAL REGURGITATION PULMONIC VALVE: MILD PULMONIC INSUFFICIENCY AORTIC VALVE: MILD AORTIC INSUFFICIENCY PERICARDIAL EFFUSION: NONE AORTIC ROOT: NORMAL LEFT VENTRICULAR WALL MOTION: NORMAL DOPPLER/COLOR FLOW: SEE BELOW COMMENTS: 1. NORMAL LEFT VENTRICULAR EJECTION FRACTION 50-55% 2. DIASTOLIC DYSFUNCTION 3. DILATED RIGHT VENTRICLE WITH MILD DYSFUNCTION 4. MILD TRICUSPID REGURGITATION 5. RIGHT VENTRICULAR SYSTOLIC PRESSURE IS 30 mmHg PLUS RIGHT ATRIAL PRESSURE TECHNOLOGIST: CYNTHIA GRIMALDO
--- NOTE | 2024-08-22 10:04 | P.CNS ---
Date of Consult: 08/22/24 Chief Complaint: hypoxia, heart failure exacerbation History of Present Illness: Patient with PMH of CAD, Heart failure presented with worsening SOB, respiratory failure, denies chest pain, no palpitations, no syncope. Allergies codeine [Codeine] Allergy (Severe, Verified 04/10/17 11:24) Nausea/Vomiting hydrochlorothiazide [From Maxzide] Allergy (Severe, Verified 04/10/17 11:24) Anaphylaxis triamterene [From Maxzide] Allergy (Severe, Verified 04/10/17 11:24) Anaphylaxis maxide Allergy (Severe, Uncoded 04/10/17 11:24) Anaphylaxis Home medications list reviewed: Yes Home Medications: Metformin ER [Glucophage ER*] 500 mg PO DAILY #30 tab.sa 07/19/16 Potassium Oral Tab [Klor-Con 10 mEq Tab*] 20 meq PO DAILY #60 tab 07/19/16 Calcium Carbonate [Calcium] 600 mg PO DAILY 02/16/17 Allopurinol 300 mg PO DAILY 08/21/24 Ferrous Sulfate [Iron] 325 mg PO DAILY 08/21/24 Furosemide 40 mg PO BID 08/21/24 Levothyroxine [Synthroid] 112 mcg PO [id number] 08/21/24 Pantoprazole 20 Mg 1 tab PO DAILY 08/21/24 Rosuvastatin Calcium [Crestor] 20 mg PO DAILY 08/21/24 Sertraline [Zoloft] 100 mg PO DAILY 08/21/24 carvediloL [Coreg*] 6.25 mg PO BID 08/21/24 - Past Medical/Surgical History Diabetic: Yes -: HTN -: Hypothyroid -: Hyperlipidemia -: CHF -: DM -: R total knee -: Reaux-Y bypass -: ACL repair 1979 -: Tonsillectomy -: aortic dissection repair 06/2019 -: pacemaker - Family History Father Medical History: Heart disease, Cancer Mother Medical History: Cancer Sister Medical History: Heart disease - Social History Smoking Status: Never smoker Alcohol use: No CD- Drugs: No Caffeine use: Yes Place of Residence: Home Review of Systems 10-point ROS is otherwise unremarkable Physical Examination Temp Pulse Resp BP Pulse Ox 98.4 F 93 H 20 120/56 L 93 08/22/24 08:00 08/22/24 08:00 08/22/24 08:00 08/22/24 08:00 08/22/24 08:00 General: Alert, In no apparent distress HEENT: Atraumatic, PERRLA, Mucous membr. moist/pink, EOMI, Sclerae nonicteric Neck: Supple, 2+ carotid pulse no bruit, No LAD, Without JVD or thyroid abnormality Respiratory: Diminished, Crackles/rales Cardiovascular: Regular rate/rhythm, Normal S1 S2, Edema Gastrointestinal: Normal bowel sounds, No tenderness Musculoskeletal: No tenderness Integumentary: No rashes Neurological: Normal gait, Normal speech, Normal tone, Normal affect Lymphatics: No axilla or inguinal lymphadenopathy - Problems (1) Acute on chronic diastolic heart failure Current Visit: Yes Status: Acute Plan: agree with IV lasix drip @ 5 mg/hr Continue to monitor input and output closely patient will need to be started on Coreg 3.125 mg po BID and EDUARDO inhibitor once she is more compensated and kidney function is improving. (2) NSTEMI (non-ST elevated myocardial infarction) Current Visit: Yes Status: Acute Plan: Patient with PMH of CAD and stents in the past, she follow up with Dr. Charles Troponin mild elevated and trending down with no significant delta most likely type 2 ID from acute heart failure and STEVE continue ASA 81 mg daily start Plavix 75 mg daily (3) HTN (hypertension) Current Visit: Yes Status: Acute Plan: continue diuresis for now and monitor BP.
--- NOTE | 2024-08-22 12:42 | P.PN ---
Subjective Date of Service: 08/22/24 Chief Complaint: Acute on chronic diastolic heart failure Subjective: Improving (Pain is improving has done much better more alert responsive off BiPAP) Review of Systems General: Weakness Respiratory: Shortness of Breath Physical Examination - Vital Signs Temperature: 98.4 F Blood Pressure: 120/56 Pulse: 93 Respirations: 20 Pulse Ox (%): 93 - Physical Exam General: Alert, In no apparent distress, Oriented x3 Respiratory: Clear to auscultation bilaterally Cardiovascular: No edema, Regular rate/rhythm, Edema Assessment And Plan - Current Problems (Diagnosis) (1) Respiratory failure with hypoxia and hypercapnia Current Visit: Yes Status: Acute Plan: Patient admitted with hypoxic hypercapnic respiratory failure cardiogram shows severe diastolic heart failure much better off BiPAP and history of sleep apnea or obstructive airways disease is never smoked I suspect she may have held underlying obesity hypoventilation syndrome benefit from a noninvasive ventilator patient is now has chronic stable hypoxic hypercapnic respiratory failure signs all stable Qualifiers: Chronicity: unspecified Qualified Code(s): J96.91 - Respiratory failure, u nspecified with hypoxia; J96.92 - Respiratory failure, unspecified with hypercapnia
--- NOTE | 2024-08-22 13:11 | P.PN ---
Subjective Date of Service: 08/22/24 Chief Complaint: Acute on chronic diastolic heart failure Patient is more awake and interactive She has been weaned off BiPAP. Diet resumed and patient is tolerating it. No recorded fever. Physical Examination - Vital Signs Temperature: 98.4 F Blood Pressure: 120/56 Pulse: 93 Respirations: 20 Pulse Ox (%): 93 Assessment And Plan - Plan Physical examination General: Alert and oriented x 2, NAD. HEENT: Conjunctiva not pale, anicteric sclera, BiPAP in place. Neck: Supple, no elevated JVD Heart: Heart sounds 1 and 2 normal, regular rhythm, normal rate, no pedal edema Lungs: Clear to auscultation bilaterally, diminished breath sounds bilaterally, no rhonchi or crackles. Abdomen: Soft, nondistended, nontender, normal bowel sounds. Extremities: No tenderness, no deformity Skin: Normal skin turgor, no rash, no nodules or ulcers. Neuro: Patient moves all extremities spontaneously, Psychiatry: Confused, no agitation. Assessment and plan Acute respiratory failure with hypoxia and hypercapnia Respiratory acidosis COPD exacerbation Clinically improving Patient weaned off BiPAP to oxygen by nasal cannula BiPAP as needed. Serial arterial blood gas shows improvement in CO2 retention and pH. Pulmonary Dr. Urbina input appreciated. Obesity hypoventilation syndrome with chronic hypercapnia suspected. Dr. Urbina is considering outpatient BIPAP. IV steroid, scheduled bronchodilators, antibiotics. PT consult Acute kidney injury Patient started on Lasix drip by nephrology. Urine output improved but serum creatinine slightly elevated. Nephrology to follow. Patient has started eating. Monitor renal function. Acute on chronic diastolic heart failure Elevated BNP Chest x-ray shows pleural effusion Patient is on Lasix drip Monitor intake and output. Diabetes mellitus type 2 Insulin sliding scale for glucose management. Watch for steroid-induced hyperglycemia. Elevated troponin Likely demand ischemia secondary to hypoxia, STEVE and heart failure Troponin trended down. Cardiology Dr. Angeles input appreciated Echocardiogram shows normal EF. Hypothyroidism Continue home dose Synthroid. TSH within normal limit. DVT prophylaxis: Heparin subQ Advanced directive: Full code.
--- NOTE | 2024-08-22 16:25 | PN ---
Date of Progress Note: 08/22/2024 Subjective: The patient was admitted to the hospital with acute kidney injury secondary to cardiorenal, overvolume with the respiratory distress. Patient on BiPAP, patient tolerated very well. The patient had started having good urine output. Objective: Vital Signs: When I saw the patient, blood pressure 120/56, pulse of 93. Chest: Crackles, bilateral. Heart: S1, S2. Systolic murmur. Abdomen: Soft, nontender. Extremities: +1 edema, erythema bilateral. Neurologic: Alert. No focality. Laboratory Data: For the patient; hemoglobin 15.5, sodium 139, potassium 4.3, bicarb 33, BUN 50, creatinine 2.4, GFR 20, calcium 9.4, uric acid 4.8, phosphorus 5.1, cortisol 32. PTH is still pending. PC ratio 0.8. Current Medications: The patient on, it includes: 1. Aspirin. 2. Levaquin 250 daily. 3. Heparin. 4. Lasix drip at 5 mg/hour. 5. Rosuvastatin. 6. Pantoprazole. 7. Allopurinol. Assessment And Plan: 1. Acute kidney injury secondary to cardiorenal, continue to recover, nonoliguric, no hyperkalemia, still overvolume. I am going to go ahead and increase Lasix to 10 mg/hour. We will follow up with Cardiology. We will monitor the patient closely. 2. Hypertension. Still marginally on the lower side. I am going to continue Lasix drip to establish better volume control. 3. Hyponatremia secondary to dilutional. We will continue optimizing fluid status. 4. Cellulitis. Continue current antibiotic. 5. Respiratory failure secondary to overvolume. We will optimize the fluid status. Increase Lasix. 6. Anasarca secondary to congestive heart failure, diastolic dysfunction. Follow up with Cardiology. We will optimize the fluid status. No significant proteinuria, and hypothyroidism has been ruled out. Time spent examining the patient [id number] reviewing data lab and the radiology placing order discussing the case with the patient/family member, discussing the case with the maintenance team leader including hospitalist and nursing staff more than 55 minutes NNEKA Voice ID: [id number] Report ID: [id number] JONNY
[2024-08-22] MEDS: FUROSEMIDE 100 MG in NA CHLORIDE 0.9% 90 ML IV SCH (17:09)
[2024-08-23 06:11] LABS: Albumin 2.7 g/dL (3.4-5.0); Albumin/Globulin Ratio 0.8 (1.1-1.8); Anion Gap 8.3 mEq/L (5.0-15.0); Bilirubin Total 0.4 mg/dL (0.2-1.0); Globulin 3.5 g/dL (2.3-3.5); Magnesium 2.3 mg/dL (1.6-2.4); Phosphorus 4.1 mg/dL (2.5-4.9); Potassium 4.3 mEq/L (3.5-5.1); Protein, Total 6.2 g/dL (6.4-8.2); Troponin High Sensitivity 51.2 pg/mL (<58.9)
[2024-08-23] MEDS: levoFLOXacin 500 MG TAB PO SCH (08:52)
[2024-08-23] MEDS: allopurinoL 100 MG TAB PO SCH (08:52)
[2024-08-23 10:18] LABS: Rheumatoid Factor NEG (NEG)
--- NOTE | 2024-08-23 12:48 | P.PN ---
Subjective Date of Service: 08/23/24 Chief Complaint: Acute on chronic diastolic heart failure Patient is awake and interactive She has been using BiPAP during sleep. She is currently needing 10 L oxygen by nasal cannula. Patient is tolerating diet. No recorded fever. Physical Examination - Vital Signs Temperature: 97.4 F Blood Pressure: 102/63 Pulse: 95 Respirations: 21 Pulse Ox (%): 89 Assessment And Plan - Plan Physical examination General: Alert and oriented x 2, NAD. HEENT: Oxygen by nasal cannula Neck: Supple, no elevated JVD Heart: Heart sounds 1 and 2 normal, regular rhythm, normal rate, no pedal edema Lungs: Clear to auscultation bilaterally, diminished breath sounds bilaterally, mild scattered expiratory wheezes. Abdomen: Soft, nondistended, nontender, normal bowel sounds. Extremities: No tenderness, no deformity Skin: Normal skin turgor, no rash, no nodules or ulcers. Neuro: Patient moves all extremities spontaneously, Psychiatry: Confused, no agitation. Assessment and plan Acute respiratory failure with hypoxia and hypercapnia Respiratory acidosis COPD exacerbation Clinically improving Patient weaned off BiPAP to oxygen by nasal cannula BiPAP as needed. Serial arterial blood gas shows improvement in CO2 retention and pH. Pulmonary Dr. Urbina is following. Obesity hypoventilation syndrome with chronic hypercapnia and hypoxia suspected. Dr. Urbina is considering outpatient noninvasive ventilator. IV steroid, scheduled bronchodilators, antibiotics. PT. Acute kidney injury On Lasix drip by nephrology. Urine output improved but serum creatinine unchanged Nephrology to follow. Patient has started eating. Monitor renal function. Acute on chronic diastolic heart failure Elevated BNP Chest x-ray showed pleural effusion Patient is on Lasix drip Monitor intake and output. Diabetes mellitus type 2 Insulin sliding scale for glucose management. Watch for steroid-induced hyperglycemia. Elevated troponin Likely demand ischemia secondary to hypoxia, STEVE and heart failure Troponin trended down. Cardiology Dr. Angeles input appreciated Echocardiogram shows normal EF. Hypothyroidism Continue home dose Synthroid. TSH within normal limit. DVT prophylaxis: Heparin subQ Advanced directive: Full code.
[2024-08-23] MEDS: METHYLPREDNISOLONE 40 MG INJ IV SCH (13:11)
[2024-08-23] MEDS: FUROSEMIDE 100 MG in NA CHLORIDE 0.9% 90 ML IV SCH (20:06)
--- NOTE | 2024-08-23 21:57 | PN ---
Date of Progress Note: 08/23/2024 Chief Complaint: Acute kidney injury, cardiorenal syndrome, volume overload, respiratory distress. Subjective: The patient remains in ICU on BiPAP. She is on Lasix drip and Lasix dose was increased. Urine output improved. Review of Systems: Unobtainable, patient is on BiPAP. Physical Examination: Lungs: Crackles bilaterally. Heart: S1, S2. 2/6 systolic murmur at left lower sternal border. Abdomen: Soft, benign, nontender. Extremities: 1+ edema bilaterally. Laboratory Data: BUN 50, creatinine 2.4, calcium 9.4, uric acid 8.4, phosphorus 5.1, cortisol level 32. Hemoglobin 15.5. Impression/plan: 1.Acute kidney injury secondary to cardiorenal syndrome. Continue the Lasix drip for treatment of c ardiorenal syndrome and acute kidney injury. Patient has underlying chronic kidney disease stage 3. Avoid nephrotoxic medication. Avoid nonsteroidal anti-inflammatory medication. Avoid IV contrast. 2.Hypertension. Blood pressure is marginally low, although she tolerates Lasix. Continue to monito r. 3.Hyponatremia secondary to cardiorenal syndrome and volume overload. Continue IV Lasix and low-sod ium diet. 4.Cellulitis. Continue antibiotics. 5.Respiratory failure secondary to volume overload and congestive heart failure. Lasix dose was inc reased. Patient is tolerating drip. 6.Anasarca secondary to congestive heart failure, diastolic dysfunction, acute on chronic. The fredo ent does not have significant proteinuria. 7.The patient had workup done to rule out hypothyroid and TSH was optimal. EB/MODL Voice ID: [id number] Report ID: [id number]
[2024-08-24 09:06] LABS: Albumin 2.7 g/dL (3.4-5.0); Anion Gap 9.6 mEq/L (5.0-15.0); Phosphorus 4.1 mg/dL (2.5-4.9); Potassium 4.6 mEq/L (3.5-5.1); Troponin High Sensitivity 34.2 pg/mL (<58.9)
--- NOTE | 2024-08-24 10:55 | P.PN ---
Subjective Date of Service: 08/24/24 Chief Complaint: Hypoxic hypercapnic respiratory failure Subjective: Improving (Is improving doing well new complaints) Review of Systems General: Weakness Respiratory: Shortness of Breath Physical Examination - Vital Signs Temperature: 97.6 F Blood Pressure: 119/59 Pulse: 103 Respirations: 16 Pulse Ox (%): 89 - Physical Exam General: Alert, Oriented x3 Respiratory: Clear to auscultation bilaterally, Diminished Cardiovascular: Regular rate/rhythm, Edema Assessment And Plan - Current Problems (Diagnosis) (1) Respiratory failure with hypoxia and hypercapnia Current Visit: Yes Status: Acute Plan: Patient has chronic stable hypoxic hypercapnic respiratory failure I suspect from obesity hypoventilation syndrome benefit from a noninvasive ventilator no history or symptoms of obstructive sleep apnea BiPAP not deemed suitable his renal function has been improving I advised patient to use her BiPAP on a regular basis DC steroids and antibiotics no evidence of sepsis patient is also on a Lasix drip renal function is improving Qualifiers: Chronicity: unspecified Qualified Code(s): J96.91 - Respiratory failure, unspecified with hypoxia; J96.92 - Respiratory failure, unspecified with hypercapnia
--- NOTE | 2024-08-24 13:37 | P.PN ---
Subjective Date of Service: 08/24/24 Chief Complaint: Hypoxic hypercapnic respiratory failure Patient is awake and interactive She has been using BiPAP during sleep. She is currently needing high flow oxygen at 15 L/min Physical Examination - Vital Signs Temperature: 97.8 F Blood Pressure: 118/58 Pulse: 102 Respirations: 16 Pulse Ox (%): 92 Assessment And Plan - Plan Physical examination General: Alert and oriented x 2, NAD. HEENT: Oxygen by nasal cannula Neck: Supple, no elevated JVD Heart: Heart sounds 1 and 2 normal, regular rhythm, normal rate, no pedal edema Lungs: Diminished breath sounds bilaterally, mild scattered expiratory wheezes. Abdomen: Soft, nondistended, nontender, normal bowel sounds. Extremities: No tenderness, no deformity Skin: Normal skin turgor, no rash, no nodules or ulcers. Neuro: Patient moves all extremities spontaneously, Psychiatry: Confused, no agitation. Assessment and plan Acute respiratory failure with hypoxia and hypercapnia Respiratory acidosis COPD exacerbation Patient weaned off continues BiPAP to oxygen by nasal cannula with intermittent BiPAP BiPAP to use BiPAP during sleep. Pulmonary Dr. Urbina is following. Obesity hypoventilation syndrome with chronic hypercapnia and hypoxia suspected. Dr. Urbina is considering outpatient noninvasive ventilator. Steroids and antibiotics discontinued. Continue bronchodilators. Continue PT. Acute kidney injury On Lasix drip by nephrology. Urine output improved, serum creatinine is now trending down. Nephrology to follow. Diet as tolerated. Monitor renal function. Acute on chronic diastolic heart failure Elevated BNP Chest x-ray showed pleural effusion Patient is on Lasix drip Monitor intake and output. Diabetes mellitus type 2 Insulin sliding scale for glucose management. Elevated troponin Likely demand ischemia secondary to hypoxia, STEVE and heart failure Troponin trended down. Cardiology Dr. Angeles input appreciated Echocardiogram shows normal EF. Hypothyroidism Continue home dose Synthroid. TSH within normal limit. DVT prophylaxis: Heparin subQ Advanced directive: Full code.
--- NOTE | 2024-08-24 19:01 | PN ---
Date of Progress Note: 08/24/2024 Subjective: No overnight events. She has good urine output. Stated she did not use BiPAP last nigh t. Continued to be on Lasix drip. We will consider to switch to IV pushes in 1-2 days if continued to have deficiency on her urine output. Objective: Vital Signs: Temperature 97.8, pulse rate 102, blood pressure 118/58. General: Awake and alert and morbidly obese. Neck: Supple. No elevated JVD. Heart: Regular rate and rhythm. Normal S1, S2. Chest: Decreased air entry bilaterally. No rales or wheezes. Abdomen: Soft, nontender. Extremities: Bilateral edema. Laboratory Data: White count 8.1, hemoglobin 15.5. Sodium 139, potassium 4.6, BUN 56, creatinine of 2. Assessment And Plan: This is a 79-year-old woman with past medical history of hypertension, diabetes , congestive heart failure, aortic dissection repair, who presented to the ER for shortness of breath . The patient was placed on BiPAP and Lasix with low urine output. Lasix was switched to IV drip an d currently her urine output and creatinine are improving. 1.Acute kidney injury due to cardiorenal syndrome. Creatinine improved and down to 2. Continue IV Lasix. Monitor I and O. No salt diet. Renal ultrasound with no hydronephrosis. 2.Congestive heart failure. Continue Lasix. Monitor INR. Low-salt diet and daily weight. 3.Chronic obstructive pulmonary disease exacerbation, currently weaning off BiPAP. Continue on oxyg en. Continue Lasix as above. 4.Diabetes mellitus. Continue sliding scale insulin. Thank you for allowing me to participate in the patient's care. Total time spent 55 minutes jesusin g documentation, reviewing labs, and discussing with the patient. KENNETH/MODL Voice ID: [id number] Report ID: [id number]
[2024-08-24] MEDS: IPRATROPIUM BROM 0.5MG/2.5ML NEB SCH (20:09)
[2024-08-25 06:00] VITALS: BMI 53.8
[2024-08-25 08:00] LABS: Albumin 2.9 g/dL (3.4-5.0); Anion Gap 5.8 mEq/L (5.0-15.0); Phosphorus 2.6 mg/dL (2.5-4.9); Potassium 3.8 mEq/L (3.5-5.1)
--- NOTE | 2024-08-25 08:58 | P.PN ---
Subjective Date of Service: 08/25/24 Chief Complaint: Hypoxic hypercapnic respiratory failure Subjective: No overnight events. Cr stable UO ~2300ml yesterday will switch lasix drip to IVP 80mg tid General: Awake and alert and morbidly obese. Neck: Supple. No elevated JVD. Heart: Regular rate and rhythm. Normal S1, S2. Chest: Decreased air entry bilaterally. No rales or wheezes. Abdomen: Soft, nontender. Extremities: Bilateral edema. Assessment And Plan: This is a 79-year-old woman with past medical history of hypertension, diabetes, congestive heart failure, aortic dissection repair, who presented to the ER for shortness of breath. The patient was placed on BiPAP and Lasix with low urine output. Lasix was switched to IV drip and currently her urine output and creatinine are improving. #. Acute kidney injury due to cardiorenal syndrome. Creatinine improved and down to 2. Continue IV Lasix. Monitor I and O. No salt diet. Renal ultrasound with no hydronephrosis. #. Congestive heart failure. Good UO will switch Lasix drip to IVP 80mg tid Monitor I/O . Low-salt diet and daily weight. #. Chronic obstructive pulmonary disease exacerbation, currently weaning off BiPAP. Continue on oxygen. Continue Lasix as above. #. Diabetes mellitus. Continue sliding scale insulin. Thank you for allowing me to participate in the patient's care. Total time spent 55 minutes including documentation, reviewing labs, and discussing with the patient Physical Examination - Vital Signs Temperature: 98.2 F Blood Pressure: 128/62 Pulse: 106 Respirations: 18 Pulse Ox (%): 92
[2024-08-25] MEDS: FUROSEMIDE 40 MG/4 ML VIAL IV SCH (09:58)
--- NOTE | 2024-08-25 13:43 | P.PN ---
Subjective Date of Service: 08/25/24 Chief Complaint: Hypoxic hypercapnic respiratory failure Patient is awake and interactive Oxygen weaned down to 10 L/min with oxygen saturation around 93%. Physical Examination - Vital Signs Temperature: 98.3 F Blood Pressure: 140/75 Pulse: 109 Respirations: 16 Pulse Ox (%): 95 Assessment And Plan - Plan Physical examination General: Alert and oriented x 2, NAD. HEENT: Oxygen by nasal cannula Neck: Supple, no elevated JVD Heart: Heart sounds 1 and 2 normal, regular rhythm, normal rate, no pedal edema Lungs: Diminished breath sounds bilaterally, mild scattered expiratory wheezes. Abdomen: Soft, nondistended, nontender, normal bowel sounds. Extremities: No tenderness, no deformity Skin: Normal skin turgor, no rash, no nodules or ulcers. Neuro: Patient moves all extremities spontaneously, Psychiatry: no agitation. Assessment and plan Acute respiratory failure with hypoxia and hypercapnia Respiratory acidosis COPD exacerbation Patient weaned off continues BiPAP to oxygen by nasal cannula with intermittent BiPAP Patient to use BiPAP during sleep. Pulmonary Dr. Urbina is following. Obesity hypoventilation syndrome with chronic hypercapnia and hypoxia suspected. Dr. Urbina is considering outpatient noninvasive ventilator. Steroids and antibiotics discontinued. Continue bronchodilators. Continue PT. Acute kidney injury On Lasix drip by nephrology. Urine output improved, serum creatinine is now trending down. Nephrology is following. Diet as tolerated. Monitor renal function. Acute on chronic diastolic heart failure Elevated BNP Chest x-ray showed pleural effusion Lasix drip changed to IV Lasix 80 mg 3 times daily Monitor intake and output. Diabetes mellitus type 2 Insulin sliding scale for glucose management. Elevated troponin Likely demand ischemia secondary to hypoxia, STEVE and heart failure Troponin trended down. Cardiology Dr. Angeles input appreciated Echocardiogram shows normal EF. Hypothyroidism Continue home dose Synthroid. TSH within normal limit. DVT prophylaxis: Heparin subQ Advanced directive: Full code.
[2024-08-25] MEDS: POTASSIUM CL SA 10 MEQ TAB PO ONE (14:25)
[2024-08-26 07:06] LABS: Albumin 2.8 g/dL (3.4-5.0); Phosphorus 2.4 mg/dL (2.5-4.9)
[2024-08-26 08:07] LABS: Complement C3 143 mg/dL (83-193)
[2024-08-26 11:16] LABS: Anti-Nuclear Antibody Screen Positive (Negative)
[2024-08-26 11:43] LABS: Anti-Nuclear Antibody Pattern REPORT
--- NOTE | 2024-08-26 16:43 | P.PN ---
Subjective Date of Service: 08/26/24 Chief Complaint: Hypoxic hypercapnic respiratory failure Patient is awake and interactive Oxygen weaned down to 4 L/min with oxygen saturation around 93%. No recorded fever. Physical Examination - Vital Signs Temperature: 97.1 F Blood Pressure: 115/84 Pulse: 107 Respirations: 23 Pulse Ox (%): 92 Assessment And Plan - Plan Physical examination General: Alert and oriented x 2, NAD. HEENT: Oxygen by nasal cannula Neck: Supple, no elevated JVD Heart: Heart sounds 1 and 2 normal, regular rhythm, normal rate, no pedal edema Lungs: Diminished breath sounds bilaterally, mild scattered expiratory wheezes. Abdomen: Soft, nondistended, nontender, normal bowel sounds. Extremities: No tenderness, no deformity Skin: Normal skin turgor, no rash, no nodules or ulcers. Neuro: Patient moves all extremities spontaneously, Psychiatry: no agitation. Assessment and plan Acute respiratory failure with hypoxia and hypercapnia Respiratory acidosis COPD exacerbation Patient weaned off continues BiPAP to oxygen by nasal cannula with intermittent BiPAP Patient to use BiPAP during sleep. Pulmonary Dr. Urbina is following. Obesity hypoventilation syndrome with chronic hypercapnia and hypoxia suspected. Dr. Urbina recommend outpatient noninvasive ventilator. Steroids and antibiotics discontinued. Continue bronchodilators. Continue PT. Acute kidney injury On Lasix drip by nephrology. Urine output improved, serum creatinine is now trending down. Nephrology is following. Diet as tolerated. Monitor renal function. Acute on chronic diastolic heart failure Elevated BNP Chest x-ray showed pleural effusion Lasix drip changed to IV Lasix 80 mg 3 times daily Transition to oral Lasix. Monitor intake and output. Diabetes mellitus type 2 Insulin sliding scale for glucose management. Elevated troponin Likely demand ischemia secondary to hypoxia, STEVE and heart failure Troponin trended down. Cardiology Dr. Angeles input appreciated Echocardiogram shows normal EF. Hypothyroidism Continue home dose Synthroid. TSH within normal limit. DVT prophylaxis: Heparin subQ Advanced directive: Full code. Disposition: Patient accepted to [facility].
--- NOTE | 2024-08-27 03:56 | PN ---
Date of Progress Note: 08/26/2024 Chief Complaint: Respiratory failure, diabetes mellitus with renal manifestation, cardiorenal syndro me, cough, shortness of breath. Subjective: The patient is on Lasix drip. She responded to Lasix drip and shortness of breath is gr adually resolving. Review of Systems: Respiratory: Denies PND, orthopnea. Cardiovascular: Denies chest pain, syncope. Physical Examination: General: Not in acute distress. Eyes: Anicteric sclerae. EOMI. Ears, Nose, Mouth, and Throat: Mucosa moist. No pallor. Neck: Supple. No bruits. Abdomen: Soft, benign, nontender. Extremities: Bilateral edema present. Assessment And Plan: The patient is a 79-year-old woman with history of hypertension, diabetes melli tus with renal manifestation, congestive heart failure, aortic dissection repair, who presented to ER because of shortness of breath. The patient was placed on BiPAP and received Lasix. Subsequently, she required Lasix drip to optimize diuretic affect. 1.Acute kidney injury due to cardiorenal syndrome. Serum creatinine level is gradually improving. Continue IV Lasix. Monitor I's and O's. Low-sodium diet. The patient had renal ultrasound, which d id not show hydronephrosis. 2.Congestive heart failure. Lasix drip was switched to IV Lasix 80 mg t.i.d. Continue to monitor I 's and O's. Continue low-sodium diet and daily weights. 3.Chronic obstructive pulmonary disease, currently patient has been weaned off BiPAP. Continue oxyg en. 4.Diabetes mellitus 2. Insulin per sliding scale. Monitor blood glucose. Avoid metformin. EB/MODL Voice ID: [id number] Report ID: [id number]
[2024-08-27 07:13] LABS: Absolute Eosinophils 0.4 K/uL (0-0.5); Absolute Lymphocytes (CBC) 0.8 K/uL (0.7-4.9); Absolute Monocytes 1.4 K/uL (0.1-1.3); Absolute Neutrophil 5.2 K/uL (1.8-8.0); Basophils % 0.5 % (0-1.3); Eosinophils % 5.3 % (0-4.4); Hematocrit 51.4 % (36.0-45.0); Hemoglobin 15.9 g/dL (12.0-15.0); Lymphocytes % 10.6 % (15.3-44.8); MCH 27.3 pg (27.0-35.0); MCHC 30.9 g/dL (32.0-36.0); MCV 88.1 fL (80-100); MPV 9.3 fL (7.6-11.3); Monocytes % 17.1 % (3.3-12.3); Neutrophils % 66.5 % (41.7-73.7); Nucleated Red Blood Cells % 0.1 % (0-0); Platelets 202 thou/uL (152-406); RBC Red Blood Cell Count 5.83 M/uL (3.86-4.86)
[2024-08-27 07:36] LABS: Anion Gap 4.1 mEq/L (5.0-15.0); Phosphorus 2.7 mg/dL (2.5-4.9); Potassium 4.1 mEq/L (3.5-5.1)
--- NOTE | 2024-08-27 07:52 | P.PN ---
Date of Service: 08/27/24 Subjective: no acute events overnight feels she is improving each day worked with PT this morning ugalde in place UOP improved last night feels swelling is better ROS: 10 point ROS as noted above, otherwise negative Physical Exam: GEN: Alert, NAD HEENT: Normal conjunctiva, sclera anicteric, CV: Regular rate and rhythm, 1+ B/L edema Pulm: NON labored respirations on 6L HFNC at rest, diminished bilaterally, mild expiratory wheeze ABD: soft, nontender, nondistended Neuro: Normal speech, normal affect Problem List: Acute respiratory failure with hypoxia and hypercapnia secondary to acute on chronic COPD exacerbation Respiratory acidosis Acute on chronic diastolic CHF NSTEMI; suspect demand ischemia hx CAD s/p prior PCI STEVE NIDDM2 Hypothyroidism Acute respiratory failure with hypoxia and hypercapnia secondary to acute on chronic COPD exacerbation Respiratory acidosis on admission, presents with worsening shortness of breath suspect secondary to obesity hypoventilation syndrome with chronic hypercapnia and hypoxia Patient weaned off continued BiPAP; currently tolerating high flow with intermittent BiPAP during sleep. Dr. Urbina, pulm is following recommend outpatient NIV - currently in process of being setup s/p IV Steroids and levaquin (08/23-08/24) HCO3 uptrending now, suspect secondary in part to contraction alkalosis Continue bronchodilators, lasix Continue PT. Acute on chronic diastolic CHF CXR (08/21): left basilar opacification, possible left pleural effusion. Elevation of the right hemidiaphragm Cardiology is following previously on lasix drip (08/23-08/24) Continue IV lasix 80 mg TID as BP allows wean lasix strict I/Os consider starting coreg 3.125 BID and brendon inhibitor once more stable/renal function improves per cardio. NSTEMI; suspect demand ischemia hx CAD s/p prior PCI Troponins mildly elevated but trended flat; Peak 120 Echo (08/21): 50-55%EF, Diastolic dysfunction, Dilated right ventricle with mild dysfunction. Mild TR monitor on telemetry Cardiology consulted suspect demand ischemia in setting of CHF/COPD exacerbations, STEVE resume home meds as appropriate STEVE suspect cardiorenal syndrome Nephrology consulted urine output improving, creatinine trending down continue to monitor renal function NIDDM2 accu-cheks, SSI Hypothyroidism continue home synthroid VTE: heparin sq Code: Full Dispo: SNF - pending auth and NIV setup/delivered. Time Spent Managing Pts Care (In Minutes): 41
--- NOTE | 2024-08-27 12:03 | P.PN ---
Subjective Date of Service: 08/27/24 Chief Complaint: Hypoxic hypercapnic respiratory failure Subjective: Improving (Patient is improving doing better shortness of breath and swelling has improved) Review of Systems General: Weakness Respiratory: Shortness of Breath Physical Examination - Vital Signs Temperature: 98.9 F Blood Pressure: 100/56 Pulse: 105 Respirations: 22 Pulse Ox (%): 97 - Physical Exam General: Alert, Oriented x3 Respiratory: Clear to auscultation bilaterally Cardiovascular: Regular rate/rhythm, Normal S1 S2, Edema Assessment And Plan - Current Problems (Diagnosis) (1) Respiratory failure with hypoxia and hypercapnia Current Visit: Yes Status: Acute Plan: Patient is doing better awaiting noninvasive ventilator renal function is improving he is on high-dose Lasix discharge planning patient's bicarbonate is increasing use a dose of Lasix for now Qualifiers: Chronicity: unspecified Qualified Code(s): J96.91 - Respiratory failure, unspecified with hypoxia; J96.92 - Respiratory failure, unspecified with hypercapnia
--- NOTE | 2024-08-27 12:34 | RAD REPORT ---
Procedure: Chest Single View HISTORY: Chest pain COMPARISON: July 2024 FINDINGS: Mild haziness left lung base unchanged. This could represent an infiltrate, atelectasis, small pleura l effusion or overlying soft tissue. Further evaluation with PA and lateral chest films or unenhanced CT chest could be obtained for further evaluation Right lung appears clear of acute infiltrate. Remains enlarged. Pacemaker leads in place. Aortic stent present. Calcified granuloma right lung
--- NOTE | 2024-08-27 15:08 | PN ---
Date of Progress Note: 08/27/2024 Subjective: The patient was admitted to the hospital with acute kidney injury secondary to cardiorenal, respiratory failure. The patient was started on diuresis with Lasix drip, then switched to bolus. Patient tolerated it very well. Patient still has good urine output. Objective: Vital Signs: Blood pressure 100/56, pulse of 105. The patient had good urine output of 4200 negative of 3 L. Chest: Crackles, bilateral. Heart: S1, S2. Systolic murmur. Abdomen: Soft, nontender, obese. Could not appreciate any organomegaly. Extremities: +1 edema. Neurologic: Alert. No focality. Laboratory Data: Sodium 139, potassium 4.1, bicarb 41, BUN 58, creatinine 1.7, GFR of 30, calcium 9.8, phosphorus 2.7, hemoglobin 15.9. Current Medications: The patient on, include: 1. Aspirin. 2. Calcium carbonate. 3. Rosuvastatin. 4. Zoloft. 5. Lasix 80 t.i.d. 6. Levothyroxine. Assessment And Plan: 1. Acute kidney injury secondary to cardiorenal, still overvolume. I am going to go ahead and get chest x-ray for better evaluation of the fluid status and we will follow up. 2. Hypertension, currently blood pressure marginally low. We will utilize the blood pressure for more diuresis. 3. Hyponatremia secondary to dilutional. Continue diuresis. 4. Congestive heart failure with exacerbation. Diuresis as above. 5. Respiratory failure secondary to overvolume/chronic obstructive pulmonary disease. Continue current treatment. Follow up with the Primary. Optimize diuresis. Time spent examining the patient [id number] reviewing data lab and the radiology placing order discussing the case with the patient/family member, discussing the case with the hat steamer including hospitalist and nursing staff more than 55 minutes NNEKA Voice ID: [id number] Report ID: [id number] JONNY
[2024-08-27] MEDS: FUROSEMIDE 40 MG/4 ML VIAL IV SCH (17:00)
[2024-08-28 05:45] LABS: Albumin 2.7 g/dL (3.4-5.0); Anion Gap 4.6 mEq/L (5.0-15.0); Phosphorus 2.4 mg/dL (2.5-4.9); Potassium 3.6 mEq/L (3.5-5.1)
--- NOTE | 2024-08-28 10:52 | P.PN ---
Date of Service: 08/28/24 Subjective: no acute events overnight feels some improvement each day doesn't feel anything is getting worse working with PT did not use BiPAP last night. States she will try BiPAP again after discussion ROS: 10 point ROS as noted above, otherwise negative Physical Exam: GEN: Alert, NAD HEENT: Normal conjunctiva, sclera anicteric, CV: Regular rate and rhythm, 1+ B/L edema Pulm: NON labored respirations on 5L HFNC at rest, diminished bilaterally, mild expiratory wheeze ABD: soft, nontender, nondistended Neuro: Normal speech, normal affect Problem List: Acute respiratory failure with hypoxia and hypercapnia secondary to acute on chronic COPD exacerbation Respiratory acidosis Acute on chronic diastolic CHF NSTEMI; suspect demand ischemia hx CAD s/p prior PCI STEVE NIDDM2 Hypothyroidism Acute respiratory failure with hypoxia and hypercapnia secondary to acute on chronic COPD exacerbation Respiratory acidosis on admission, presents with worsening shortness of breath suspect secondary to obesity hypoventilation syndrome with chronic hypercapnia and hypoxia Patient weaned off continued BiPAP; currently tolerating high flow Patient has been refusing to wear BiPAP last 24-48 hours due to discomfort Educated on importance of wearing BiPAP as much as possible. Patient agreeable to use BiPAP after discussion. Dr. Urbina, pulm is following recommend outpatient NIV - currently in process of being setup s/p IV Steroids and levaquin (08/23-08/24) HCO3 uptrending now, suspect secondary in part to contraction alkalosis Continue bronchodilators, lasix to PO Continue PT. Acute on chronic diastolic CHF CXR (08/21): left basilar opacification, possible left pleural effusion. Elevation of the right hemidiaphragm Echo (08/21): 50-55%EF, Diastolic dysfunction, Dilated right ventricle with mild dysfunction. Mild TR Cardiology is following previously on lasix drip (08/23-08/24) IV lasix deescalated to oral lasix 80 mg twice daily 08/28 Metolazone added 08/29 per nephro Monitor BP while being diuresed strict I/Os NSTEMI; suspect demand ischemia hx CAD s/p prior PCI Troponins mildly elevated but trended flat; Peak 120 monitor on telemetry Cardiology consulted suspect demand ischemia in setting of CHF/COPD exacerbations, STEVE STEVE suspect cardiorenal syndrome Nephrology consulted urine output improving, creatinine trending down continue to monitor renal function NIDDM2 accu-cheks, SSI Hypothyroidism continue home synthroid VTE: heparin sq Code: Full Dispo: SNF - pending auth and NIV setup/delivered. Time Spent Managing Pts Care (In Minutes): 41
--- NOTE | 2024-08-28 15:50 | PN ---
Date of Progress Note: 08/28/2024 Subjective: This patient was admitted to the hospital with acute kidney injury, respiratory failure secondary to cardiorenal. The patient started on diuresis with Lasix drip, switched to bolus, the pa tient maintaining good urine output. Physical Examination: Vital Signs: Blood pressure 124/68, pulse of 108, afebrile. General: The patient is still on nasal cannula. The patient had urine output of 4200, negative of 3 L. Chest: Decreased entry bilateral base with crackles on the mid zone. Heart: S1, S2 systolic murmur. Abdomen: Morbidly obese, could not appreciate any organomegaly. Extremities: Plus edema with erythema bilateral. Neurologic: Alert, pleasantly confused. Lab: Hemoglobin 15.9. Sodium 138, potassium 3.6, bicarb 42, BUN 52, creatinine down to 1.4. GFR of 38. Calcium 9.1, phosphorus 2.4. Albumin 2.7. Corrected calcium is 10. Current Medications: The patient on Lasix 80 mg b.i.d., calcium carbonate, rosuvastatin, levothyroxi ne, allopurinol. Assessment And Plan: 1.Acute kidney injury secondary to cardiorenal. I am going to switch the patient to oral Lasix, add metolazone to optimize the fluid status and we will follow up. 2.Hypercapnic respiratory failure. The patient noncompliant with BiPAP. We will follow up. 3.Hypokalemia. I am going to start the patient on spironolactone and we will follow up response. 4.Respiratory failure secondary to over-volume/COPD as above. MICHI/FANY Voice ID: [id number] Report ID: [id number]
[2024-08-28] MEDS: FUROSEMIDE 40 MG TABLET PO SCH (21:12)
[2024-08-28 21:28] LABS: C-ANCA Anti-Proteinase 3 <1.0 AI (<1.0); P-ANCA Anti-Myeloperoxidase Ab <1.0 AI (<1.0)
[2024-08-29 04:30] LABS: Hematocrit 48.7 % (36.0-45.0); Hemoglobin 15.2 g/dL (12.0-15.0); MCH 27.6 pg (27.0-35.0); MCHC 31.1 g/dL (32.0-36.0); MCV 88.7 fL (80-100); MPV 9.1 fL (7.6-11.3); Platelets 145 thou/uL (152-406); RBC Red Blood Cell Count 5.49 M/uL (3.86-4.86); Red Cell Distribution Width 16.7 % (12.1-15.2)
[2024-08-29 04:52] LABS: Albumin 2.6 g/dL (3.4-5.0); Anion Gap 3.5 mEq/L (5.0-15.0); Magnesium 2.1 mg/dL (1.6-2.4); Potassium 3.5 mEq/L (3.5-5.1)
[2024-08-29] MEDS: POTASSIUM CL SA 10 MEQ TAB PO ONE (09:02)
[2024-08-29] MEDS: SPIRONOLACTONE 25 MG TABLET PO SCH (09:02)
[2024-08-29] MEDS: METOLAZONE 2.5 MG TABLET PO SCH (09:03)
--- NOTE | 2024-08-29 11:09 | P.PN ---
Date of Service: 08/29/24 Subjective: no acute events overnight feels she is continuing improvement ROS: 10 point ROS as noted above, otherwise negative Physical Exam: GEN: Alert, NAD HEENT: Normal conjunctiva, sclera anicteric, CV: Regular rate and rhythm, 1+ B/L edema Pulm: NON labored respirations on 5L NC at rest, diminished bilaterally, mild expiratory wheeze ABD: soft, nontender, nondistended Neuro: Normal speech, normal affect Problem List: Acute respiratory failure with hypoxia and hypercapnia secondary to acute on chronic COPD exacerbation Respiratory acidosis Acute on chronic diastolic CHF NSTEMI; suspect demand ischemia hx CAD s/p prior PCI STEVE NIDDM2 Hypothyroidism Acute respiratory failure with hypoxia and hypercapnia secondary to acute on chronic COPD exacerbation Respiratory acidosis on admission, presents with worsening shortness of breath suspect secondary to obesity hypoventilation syndrome with chronic hypercapnia and hypoxia Patient weaned off continous BiPAP; recommendations to wear bedtime Patient has been refusing to wear BiPAP recently due to discomfort / claustrophobia with the mask on needs BiPAP as much as possible. Patient agreeable to use BiPAP after discussion. re-ordered today continue BiPAP at bedtime as much as tolerable. Dr. Urbina, pulm is following recommend outpatient NIV - currently in process of being setup s/p IV Steroids and levaquin (08/23-08/24) HCO3 uptrending now, suspect secondary in part to contraction alkalosis Continue bronchodilators, oral lasix Continue PT Acute on chronic diastolic CHF CXR (08/21): left basilar opacification, possible left pleural effusion. Elevation of the right hemidiaphragm Echo (08/21): 50-55%EF, Diastolic dysfunction, Dilated right ventricle with mild dysfunction. Mild TR Cardiology is following previously on lasix drip (08/23-08/24) IV lasix deescalated to oral lasix 80 mg twice daily 08/28 Spironolactone, Metolazone added 08/29 per nephro Monitor BP while being diuresed strict I/O NSTEMI; suspect demand ischemia hx CAD s/p prior PCI Troponins mildly elevated but trended flat; Peak 120 monitor on telemetry Cardiology consulted suspect demand ischemia in setting of CHF/COPD exacerbations, STEVE STEVE suspect cardiorenal syndrome Nephrology consulted urine output improving, creatinine trending down continue to monitor renal function NIDDM2 accu-cheks, SSI Hypothyroidism continue home synthroid VTE: heparin sq Code: Full Dispo: SNF - pending auth and NIV setup/delivered. Time Spent Managing Pts Care (In Minutes): 41
--- NOTE | 2024-08-29 16:22 | PN ---
Date of Progress Note: 08/29/2024 Subjective: Patient was admitted to the hospital with acute kidney injury secondary to cardiorenal. Patient was started on Lasix drip and was switch bolus IV switch yesterday to p.o. Patie nt had good urine output. We added metolazone, tolerated very well. Physical Examination: Vital Signs: When I saw the patient, blood pressure 121/80, pulse of 94. Chest: Crackles bilateral. Heart: S1-S2 systolic murmur. Abdomen: Soft, nontender. Extremities: +1 edema. Laboratory Data: Hemoglobin 15.2, sodium 138, potassium 3.5, bicarb 43, BUN 47, creatinine 1.3, GFR 39, calcium 9.4, phosphorus 3, magnesium 2.1, albumin 2.6, corrected calcium is 10.6. Current Medications: The patient on include: 1.Aspirin. 2.Calcium carbonate. 3.Spironolactone 25 mg. 4.Lasix 80 b.i.d. 5.Metolazone 2.5. 6.Pantoprazole. 7.Allopurinol. Assessment And Plan: 1.Acute kidney injury secondary to cardiorenal continued to recover, still on the over volume side. I am going to continue diuresing the patient on current regimen. 2.Congestive heart failure with exacerbation and pulmonary hypertension as above. We add spironolac tone and we will follow up. 3.Hypokalemia. We will follow up after spironolactone. Currently potassium stable. 4.Hypercapnic respiratory acidosis with compensated metabolic alkalosis. Re-encouraged the patient for wearing her BiPAP machine. MICHI/FANY Voice ID: [id number] Report ID: [id number]
[2024-08-29 19:40] LABS: Anti-Double Strand DNA Antibod 1 IU/mL (<=4)
[2024-08-30 07:28] LABS: Albumin 2.7 g/dL (3.4-5.0); Anion Gap 4.6 mEq/L (5.0-15.0); BUN Blood Urea Nitrogen 47 mg/dL (7-18); Glomerular Filtration Rate 34 ml/min (=/>90); Glucose Level 124 mg/dL (74-106); Magnesium 2.1 mg/dL (1.6-2.4); Phosphorus 2.9 mg/dL (2.5-4.9); Potassium 3.6 mEq/L (3.5-5.1); Sodium Level 138 mEq/L (136-145)
[2024-08-30 07:29] LABS: Bicarbonate > 45 mEq/L (21-32)
[2024-08-30] MEDS: POTASSIUM CL SA 10 MEQ TAB PO ONE (08:50)
--- NOTE | 2024-08-30 09:25 | P.PN ---
Date of Service: 08/30/24 Subjective: feeling some improvement each day feels easier to take a deeper breath tolerating BiPAP throughout the night per shift summary lower extremity edema improving denies any worsening problems ROS: 10 point ROS as noted above, otherwise negative Physical Exam: GEN: Alert, NAD HEENT: Normal conjunctiva, sclera anicteric, CV: Regular rate and rhythm, trace-1 B/L edema Pulm: nonlabored respirations on 5L NC at rest / BiPAP at night, diminished bilaterally, mild expiratory wheeze ABD: soft, nontender, nondistended Neuro: Normal speech, normal affect Problem List: Acute respiratory failure with hypoxia and hypercapnia secondary to acute on chronic COPD exacerbation Respiratory acidosis Acute on chronic diastolic CHF NSTEMI; suspect demand ischemia hx CAD s/p prior PCI STEVE NIDDM2 Hypothyroidism Acute respiratory failure with hypoxia and hypercapnia secondary to acute on chronic COPD exacerbation Respiratory acidosis on admission, presents with worsening shortness of breath suspect secondary to obesity hypoventilation syndrome with chronic hypercapnia and hypoxia Patient weaned off continous BiPAP; recommendations to wear bedtime Previously initially refusing BiPAP d/t discomfort / claustrophobia with the mask on continue BiPAP as much as possible. Patient agreeable to use BiPAP able to tolerate BiPAP throughout the night per shift summary Dr. Urbina, pulm is following recommend outpatient NIV - currently in process of being setup s/p IV Steroids and levaquin (08/23-08/24) HCO3 uptrending now, suspect secondary in part to contraction alkalosis discussed with nephro, brittani lasix and DC metolazone, continue spironolactone Continue bronchodilators, oral lasix Continue PT Acute on chronic diastolic CHF CXR (08/21): left basilar opacification, possible left pleural effusion. Elevation of the right hemidiaphragm Echo (08/21): 50-55%EF, Diastolic dysfunction, Dilated right ventricle with mild dysfunction. Mild TR Cardiology is following previously on lasix drip (08/23-08/24) IV lasix deescalated to oral lasix 80 mg twice daily 08/28 and DC'd 08/30 Spironolactone DC metolazone Monitor BP while being diuresed strict I/O NSTEMI; suspect demand ischemia hx CAD s/p prior PCI Troponins mildly elevated but trended flat; Peak 120 monitor on telemetry Cardiology consulted suspect demand ischemia in setting of CHF/COPD exacerbations, STEVE STEVE suspect cardiorenal syndrome Nephrology consulted Continue Lasix, spironolactone continue to monitor renal function NIDDM2 accu-cheks, SSI Hypothyroidism continue home synthroid VTE: heparin sq Code: Full Dispo: SNF - pending auth and NIV setup/delivered. ~2 days, pending improvement of HCO3 as well Time Spent Managing Pts Care (In Minutes): 41
--- NOTE | 2024-08-31 02:32 | PN ---
Date of Progress Note: 08/30/2024 Chief Complaint: Acute kidney injury secondary to cardiorenal syndrome, fluid overload. Subjective: The patient is on Lasix medication. She was started on IV drip. Subsequently, it was decreased to IV boluses. She is on metolazone. Review of Systems: Denies chest pain, palpitation. Physical Examination: Lungs: Clear to auscultation bilaterally. Heart: S1, S2. Abdomen: Soft. Extremities: 1+ edema. Laboratory Data: Hemoglobin 15.2. Sodium 138, potassium 3.5, bicarbonate 43, BUN 47, creatinine 1.3, GFR 39, corrected calcium 10.6, albumin 2.6. Impression And Plan: 1. Acute kidney injury secondary to cardiorenal syndrome. Renal function is improving. Avoid nephrotoxic medication. 2. Congestive heart failure with exacerbation with pulmonary hypertension. Continue spironolactone. Monitor electrolytes. diuretics adjusted. 3. Hypokalemia. The patient will continue spironolactone. 4. Hypercapnic respiratory acidosis. Monitor ABG . Continue diuretics. NICOLE/FANY Voice ID: [id number] Report ID: [id number] MTDD
[2024-08-31 07:31] LABS: Albumin 2.7 g/dL (3.4-5.0); Anion Gap 7.6 mEq/L (5.0-15.0); BUN Blood Urea Nitrogen 45 mg/dL (7-18); Glomerular Filtration Rate 41 ml/min (=/>90); Glucose Level 110 mg/dL (74-106); Potassium 3.6 mEq/L (3.5-5.1); Sodium Level 138 mEq/L (136-145)
[2024-08-31 07:32] LABS: Bicarbonate > 45 mEq/L (21-32)
[2024-08-31] MEDS: acetaZOLAMIDE 250 MG TAB PO SCH (09:43)
[2024-08-31] MEDS: POTASS/SODIUM PHOSPHATE 1 PKT POWD.PACK PO SCH (09:43)
--- NOTE | 2024-08-31 10:39 | P.PN ---
Date of Service: 08/31/24 Subjective: feels breathing continues to improve daily some mild pink-tinged urine output noted overnight with some tiny clots hematuria starting to clear up wearing BiPAP at night afebrile ROS: 10 point ROS as noted above, otherwise negative Physical Exam: GEN: Alert, NAD HEENT: Normal conjunctiva, sclera anicteric, CV: Regular rate and rhythm, trace-1 B/L edema Pulm: nonlabored respirations on 5L NC at rest / BiPAP at night, diminished bilaterally, mild expiratory wheeze ABD: soft, nontender, nondistended Neuro: Normal speech, normal affect ugalde in place with some pinkish-kennedi urine; hematuria clearing up Problem List: Acute respiratory failure with hypoxia and hypercapnia secondary to acute on chronic COPD exacerbation Respiratory acidosis Acute on chronic diastolic CHF Mild hematuria NSTEMI; suspect demand ischemia hx CAD s/p prior PCI STEVE NIDDM2 Hypothyroidism Acute respiratory failure with hypoxia and hypercapnia secondary to acute on chronic COPD exacerbation Respiratory acidosis on admission, presents with worsening shortness of breath suspect secondary to obesity hypoventilation syndrome with chronic hypercapnia and hypoxia Patient weaned off continous BiPAP; recommendations to wear bedtime Previously initially refusing BiPAP d/t discomfort / claustrophobia with the mask on continue BiPAP as much as possible. Patient agreeable to use BiPAP able to tolerate BiPAP throughout the night per shift summary Dr. Urbina, pulm is following recommend outpatient NIV - approved for loaner NIV but needs contract setup before able to send machine over to SNF s/p IV Steroids and levaquin (08/23-08/24) HCO3 uptrending now, suspect secondary in part to contraction alkalosis discussed with nephro, lasix/metolazone dc'd 08/30, continue spironolactone Continue bronchodilators Continue PT Acute on chronic diastolic CHF CXR (08/21): left basilar opacification, possible left pleural effusion. Elevation of the right hemidiaphragm Echo (08/21): 50-55%EF, Diastolic dysfunction, Dilated right ventricle with mild dysfunction. Mild TR Cardiology is following previously on lasix drip (08/23-08/24) and IV lasix (08/24-08/28) lasix, metolazone dc'd 08/30 continue Spironolactone Monitor BP while being diuresed strict I/O NSTEMI; suspect demand ischemia hx CAD s/p prior PCI Troponins mildly elevated but trended flat; Peak 120 monitor on telemetry Cardiology consulted suspect demand ischemia in setting of CHF/COPD exacerbations, STEVE Mild hematuria some mild pink-tinged urine noted overnight from ugalde tubing with some tiny clots stop heparin, asa 81 mg continue to monitor, Maintain ugalde for now hematuria seems to be clearing up STEVE suspect cardiorenal syndrome Nephrology consulted continue spironolactone Lasix dc'd 08/30 continue to monitor renal function NIDDM2 accu-cheks, SSI Hypothyroidism continue home synthroid VTE: stop heparin given hematuria Code: Full Dispo: SNF - ~2-3 days, pending auth and improvement of HCO3 as well approved for loaner NIV but needs contract setup before able to send machine over to SNF Time Spent Managing Pts Care (In Minutes): 41
--- NOTE | 2024-08-31 14:50 | P.PN ---
Subjective Date of Service: 08/31/24 Chief Complaint: Hypoxic hypercapnic respiratory failure Subjective: Other (She reports no increase in shortness of breath.) Physical Examination - Vital Signs Temperature: 97.5 F Blood Pressure: 99/47 Pulse: 88 Respirations: 16 Pulse Ox (%): 90 - Physical Exam General: Other (chronically ill-appearing) HEENT: Atraumatic, Normocephalic Neck: Supple Respiratory: Other (Symmetric chest expansion) Cardiovascular: No rubs, No murmurs Gastrointestinal: Soft and benign, No guarding Musculoskeletal: No clubbing Integumentary: No warmth Neurological: Normal tone Urinary: Other (no bladder distention) External genitalia: Deferred Rectal: Deferred Assessment And Plan - Plan 1. Acute kidney injury secondary to cardiorenal syndrome. SCr decreased to 1.3. [place] po fluid intake. 2. Congestive heart failure with exacerbation with pulmonary hypertension. Urine chem showed adeq natriuresis. Cont [place] same dose. 3. Hypokalemia. KCl repletion prn. Continue Spironolactone. 4. Hypercapnic respiratory acidosis. Continue diuretics. 5. Metabolic alkalosis. Repeat ABG on 08/31 showed primary metabolic alkalosis. Cont diamox po bid same dose.
[2024-08-31 15:37] LABS: Arterial Blood Carboxyhemoglob 1.6 % (0-1.5); Blood Gas Oxyhemoglobin 89.4 % (94-97); Blood O2 Saturation 92.4 % (92-98.5)
[2024-08-31 15:38] LABS: Blood Gas THB 16.3 g/dl (12-18)
[2024-08-31 16:34] LABS: UR PROTEIN 30.2 mg/dL (<11.9); Urine Protein/Creatinine Ratio 1.26 ratio (<0.15)
[2024-09-01 06:17] LABS: Albumin 2.8 g/dL (3.4-5.0); Anion Gap 5.4 mEq/L (5.0-15.0); Phosphorus 3.5 mg/dL (2.5-4.9); Potassium 3.4 mEq/L (3.5-5.1)
--- NOTE | 2024-09-01 08:13 | P.PN ---
Date of Service: 09/01/24 Subjective: hematuria clearing up wearing BiPAP at night denies any new / worsening problems feels a little easier to breath today ROS: 10 point ROS as noted above, otherwise negative Physical Exam: GEN: Alert, NAD CV: Regular rate and rhythm, trace-1 B/L edema Pulm: nonlabored respirations on 5L NC at rest / BiPAP at night, diminished bilaterally ABD: soft, nontender, nondistended Neuro: Normal speech, normal affect ugalde in place with some pinkish-kennedi urine; hematuria clearing up Problem List: Acute respiratory failure with hypoxia and hypercapnia secondary to acute on chronic COPD exacerbation Respiratory acidosis resolved, now metabolic alkalosis (contraction) Acute on chronic diastolic CHF Mild hematuria, improving NSTEMI; suspect demand ischemia hx CAD s/p prior PCI STEVE, secondary to cardiorenal NIDDM2 Hypothyroidism Acute respiratory failure with hypoxia and hypercapnia secondary to acute on chronic COPD exacerbation Respiratory acidosis suspect secondary to obesity hypoventilation syndrome with chronic hypercapnia and hypoxia Patient weaned off continuos BiPAP; recommendations to wear bedtime Previously initially refusing BiPAP d/t discomfort / claustrophobia with the mask on continue BiPAP as much as possible. Patient agreeable to use BiPAP Dr. Urbina, pulm is following recommend outpatient NIV - approved for loaner NIV but needs contract setup before able to send machine over to SNF s/p IV Steroids and lev Acute on chronic diastolic CHF CXR (08/21): left basilar opacification, possible left pleural effusion. Elevation of the right hemidiaphragm Echo (08/21): 50-55%EF, Diastolic dysfunction, Dilated right ventricle with mild dysfunction. Mild TR Cardiology is following previously on lasix drip (08/23-08/24) and IV lasix (08/24-08/28) lasix, metolazone dc'd 08/30 continue Spironolactone Monitor BP while being diuresed strict I/O Mild hematuria, improving some mild pink-tinged urine noted yesterday from ugalde tubing with some tiny clots heparin, asa 81 mg dc'd 08/31 hematuria seems to be clearing up will dc ugalde later today NSTEMI; suspect demand ischemia hx CAD s/p prior PCI Troponins mildly elevated but trended flat; Peak 120 monitor on telemetry Cardiology consulted suspect demand ischemia in setting of CHF/COPD exacerbations, STEVE STEVE, secondary to cardiorenal suspect cardiorenal syndrome Nephrology consulted continue spironolactone Lasix dc'd 08/30 continue to monitor renal function NIDDM2 accu-cheks, SSI Hypothyroidism continue home synthroid VTE: heparin on hold d/t hematuria Code: Full Dispo: SNF - ~2-3 days, pending auth and improvement of HCO3 as well approved for loaner NIV but needs contract setup before able to send machine over to SNF Time Spent Managing Pts Care (In Minutes): 41
[2024-09-01] MEDS: POTASSIUM 25 MEQ EFFERV TAB PO ONE (08:22)
--- NOTE | 2024-09-01 10:18 | P.PN ---
Subjective Date of Service: 09/01/24 Chief Complaint: Hypoxic hypercapnic respiratory failure Subjective: Improving (Is improving doing well edema has declined no new complaints) Review of Systems General: Weakness Respiratory: Shortness of Breath Physical Examination - Vital Signs Temperature: 97.5 F Blood Pressure: 99/47 Pulse: 88 Respirations: 16 Pulse Ox (%): 90 - Physical Exam General: Alert, In no apparent distress, Oriented x3 Respiratory: Clear to auscultation bilaterally Cardiovascular: Normal pulses, Regular rate/rhythm, Edema (Plus edema) Assessment And Plan - Current Problems (Diagnosis) (1) Respiratory failure with hypoxia and hypercapnia Current Visit: Yes Status: Acute Plan: Patient admitted with chronic hypoxic hypercapnic respiratory failure bicarbonate is elevated add Diamox with low-dose spironolactone chemistries all reviewed patient has agreed to use BiPAP or noninvasive ventilator at home at night and during the day while sleeping [place] will be removed today patient's diuretics have been discontinued she probably has some degree of contraction alkalosis from high doses of Lasix renal function is currently stable Qualifiers: Chronicity: unspecified Qualified Code(s): J96.91 - Respiratory failure, unspecified with hypoxia; J96.92 - Respiratory failure, unspecified with hypercapnia
[2024-09-01] MEDS: acetaZOLAMIDE 250 MG TAB PO SCH (12:21)
--- NOTE | 2024-09-01 14:56 | P.PN ---
Subjective Date of Service: 09/01/24 Chief Complaint: Hypoxic hypercapnic respiratory failure Subjective: Other (She reports no increase in shortness of breath.) Physical Examination - Vital Signs Temperature: 97.5 F Blood Pressure: 118/62 Pulse: 78 Respirations: 16 Pulse Ox (%): 90 - Physical Exam General: Other (chronically ill-appearing) HEENT: Atraumatic, Normocephalic Neck: Supple, JVD not distended Respiratory: Other (symmetric chest expansion) Cardiovascular: No rubs, No murmurs Gastrointestinal: Soft and benign, No guarding Musculoskeletal: No clubbing, Swelling Integumentary: No warmth Neurological: Normal tone Urinary: Other (bladder distention) External genitalia: Deferred Rectal: Deferred Assessment And Plan - Plan 1. Acute kidney injury secondary to cardiorenal syndrome. SCr decreased to 1.3- 1.4. [place] po fluid intake at least 2 L/day. 2. Congestive heart failure with exacerbation with pulmonary hypertension. Urine chem showed adeq natriuresis. Cont [place] same dose. 3. Hypokalemia. K low at 3.4. KCl repletion prn. Continue Spironolactone. 4. Hypercapnic respiratory acidosis. Continue diuretics. 5. Metabolic alkalosis. Repeat ABG on 08/31 showed primary metabolic alkalosis. Cont diamox po daily.
[2024-09-02 05:56] LABS: Hematocrit 48.6 % (36.0-45.0); Hemoglobin 14.9 g/dL (12.0-15.0); MCH 27.7 pg (27.0-35.0); MCHC 30.7 g/dL (32.0-36.0); MCV 90.3 fL (80-100); MPV 11.6 fL (7.6-11.3); Platelets 150 thou/uL (152-406); RBC Red Blood Cell Count 5.38 M/uL (3.86-4.86); Red Cell Distribution Width 16.3 % (12.1-15.2)
[2024-09-02 06:08] LABS: Anion Gap 5.7 mEq/L (5.0-15.0); Potassium 3.7 mEq/L (3.5-5.1)
--- NOTE | 2024-09-02 08:58 | P.PN ---
Date of Service: 09/02/24 Subjective: feels breathing, strength improving ugalde removed yesterday voiding without issues since ugalde removal. Hematuria resolved ROS: 10 point ROS as noted above, otherwise negative Physical Exam: GEN: Alert, NAD, pleasant CV: Regular rate and rhythm, trace-1+ B/L edema Pulm: nonlabored respirations on 5L NC at rest / BiPAP at night, slightly diminished ABD: soft, nontender, nondistended Neuro: Normal speech, normal affect Problem List: Acute respiratory failure with hypoxia and hypercapnia secondary to acute on chronic COPD exacerbation Respiratory acidosis resolved, now metabolic alkalosis (contraction) Acute on chronic diastolic CHF Mild hematuria, improving NSTEMI; suspect demand ischemia hx CAD s/p prior PCI STEVE, secondary to cardiorenal NIDDM2 Hypothyroidism Acute respiratory failure with hypoxia and hypercapnia secondary to acute on chronic COPD exacerbation Respiratory acidosis suspect secondary to obesity hypoventilation syndrome with chronic hypercapnia and hypoxia Patient weaned off continuos BiPAP; recommendations to wear bedtime Previously initially refusing BiPAP d/t discomfort / claustrophobia with the mask on continue BiPAP as much as possible. Patient agreeable to use BiPAP Dr. Urbina, pulm is following recommend outpatient NIV - approved for loaner NIV but needs contract setup before able to send machine over to SNF s/p IV Steroids diamox added 09/01 Acute on chronic diastolic CHF CXR (08/21): left basilar opacification, possible left pleural effusion. Elevation of the right hemidiaphragm Echo (08/21): 50-55%EF, Diastolic dysfunction, Dilated right ventricle with mild dysfunction. Mild TR Cardiology is following previously on lasix drip (08/23-08/24) and IV lasix (08/24-08/28) lasix, metolazone dc'd 08/30 continue Spironolactone Monitor BP while being diuresed strict I/O Mild hematuria, resolved some mild pink-tinged urine noted 08/30-08/31 overnight from ugalde tubing with some tiny clots heparin, asa 81 mg dc'd 08/31 ugalde dc'd 09/01; voiding without issues since ugalde removal. hematuria resolved. No further episodes. NSTEMI; suspect demand ischemia hx CAD s/p prior PCI Troponins mildly elevated but trended flat; Peak 120 monitor on telemetry Cardiology consulted suspect demand ischemia in setting of CHF/COPD exacerbations, STEVE STEVE, secondary to cardiorenal suspect cardiorenal syndrome Nephrology consulted continue spironolactone continue to monitor renal function improving NIDDM2 accu-cheks, SSI Hypothyroidism continue home synthroid VTE: heparin subq on hold due to hematuria Code: Full Dispo: SNF - ~1-2 days, pending auth approved for loaner NIV but needs contract setup before able to send machine over to SNF Time Spent Managing Pts Care (In Minutes): 41
--- NOTE | 2024-09-03 03:29 | PN ---
Date of Progress Note: 09/02/2024 Chief Complaint: Acute kidney injury secondary to cardiorenal syndrome, fluid overload. History Of Present Illness: The patient was started on Lasix drip. Subsequently, Lasix was decrease d to IV boluses. She was on metolazone for volume control and treatment of cardiorenal syndrome. Review of Systems: Denies chest pain, palpitation. Physical Examination: Lungs: Diminished breath sound at bases. Heart: S1, S2. Abdomen: Soft. Extremities: 1+ edema. Impression And Plan: 1.Acute kidney injury secondary to cardiorenal syndrome. Renal function is improving. Avoid nephro toxic medication. 2.Congestive heart failure exacerbation. Continue spironolactone. Monitor electrolytes. Diuretic adjusted to alleviate diuretic-related metabolic alkalosis. 3.Hypokalemia. Continue spironolactone and potassium supplementation as needed. 4.Hypercapnic respiratory acidosis. Monitor ABG. EB/MODL Voice ID: [id number] Report ID: [id number]
[2024-09-03 06:06] LABS: Anion Gap 6.7 mEq/L (5.0-15.0); Magnesium 2.5 mg/dL (1.6-2.4); Potassium 3.7 mEq/L (3.5-5.1)
[2024-09-03] MEDS: POTASSIUM CL SA 10 MEQ TAB PO ONE (08:39)
--- NOTE | 2024-09-03 10:12 | RAD REPORT ---
EXAM: Chest Single View HISTORY: COPD COMPARISON: 08/27/2024. FINDINGS: LUNGS/PLEURA: Very low lung volumes. MEDIASTINUM: The mediastinal silhouette is within normal limits. CARDIAC: The cardiac silhouette is likely enlarged but difficult to evaluate due to low lung volumes. UPPER ABDOMEN: No significant abnormality. BONES: No acute fracture. LINES/TUBES/OTHER: Pacemaker. Aortic stent graft IMPRESSION: Low lung volumes which limits evaluation. Difficult to exclude basilar airspace disease and/or pleura l fluid. Could consider a PA and lateral if the patient's condition permits.
--- NOTE | 2024-09-03 14:00 | P.PN ---
Subjective Date of Service: 09/03/24 Chief Complaint: Hypoxic hypercapnic respiratory failure Patient has no new complaint. She is awake and alert and interactive. She was seen sitting in a chair during my examination. She is ambulating small distances with a rolling walker with contact-guard assist. She is maintained on 5 L oxygen by nasal cannula. Physical Examination - Vital Signs Temperature: 97.7 F Blood Pressure: 138/61 Pulse: 84 Respirations: 20 Pulse Ox (%): 95 Assessment And Plan - Plan Physical examination General: Alert and oriented x 2, NAD. HEENT: Oxygen by nasal cannula Neck: Supple, no elevated JVD Heart: Heart sounds 1 and 2 normal, regular rhythm, normal rate, no pedal edema Lungs: Diminished breath sounds bilaterally, clear to auscultation. Abdomen: Soft, nondistended, nontender, normal bowel sounds. Extremities: No tenderness, no deformity Skin: Normal skin turgor, no rash, no nodules or ulcers. Neuro: No focal motor deficit. Psychiatry: no agitation. Assessment and plan Acute respiratory failure with hypoxia and hypercapnia Respiratory acidosis COPD exacerbation Morbid obesity Patient weaned off continues BiPAP to oxygen by nasal cannula with intermittent BiPAP Patient to use BiPAP during sleep. Pulmonary Dr. Urbina is following. Patient has obesity hypoventilation syndrome with chronic hypercapnia and hypoxia. Dr. Urbina recommend outpatient noninvasive ventilator which has been arranged for disposition to SNF Off Steroids and antibiotics discontinued. Continue bronchodilators. Continue Aldactone Continue PT. Acute kidney injury Nephrology Dr. Mejia is following Status post Lasix drip. Currently on Diamox. Urine output improved. Renal function improved and stable Nephrology is following. Diet as tolerated. Acute on chronic diastolic heart failure Metabolic alkalosis Elevated BNP Chest x-ray showed pleural effusion Lasix drip changed to IV Lasix 80 mg 3 times daily, transition to oral Lasix. Lasix later discontinued due to contraction alkalosis and replaced with Diamox. Continue Diamox. Monitor renal function Monitor intake and output. Diabetes mellitus type 2 Insulin sliding scale for glucose management. Elevated troponin Likely demand ischemia secondary to hypoxia, STEVE and heart failure Troponin trended down. Cardiology Dr. Angeles input appreciated Echocardiogram shows normal EF. Hematuria Resolved. Heparin for DVT prophylaxis was discontinued due to hematuria. Hypothyroidism Continue home dose Synthroid. TSH within normal limit. DVT prophylaxis: SCD Advanced directive: Full code. Disposition: Patient accepted to [facility] pending finalization of NIV arrange ment.
--- NOTE | 2024-09-03 18:26 | PN ---
Date of Progress Note: 09/03/2024 Subjective: The patient was admitted to the hospital with respiratory failure secondary to cardioren al. Patient was diuresed. Patient developed hypercapnic respiratory acidosis with compensated metab olic alkalosis. Patient's diuresis has been held. Patient continued on acetazolamide and spironolac tone. Objective: Vital Signs: Blood pressure 138/61, pulse of 84, afebrile. Chest: Decreased entry, bilateral base. Heart: S1, S2. Regular. Systolic murmur. Abdomen: Soft, nontender. Extremities: Plus edema, erythema bilateral. Laboratory Data: Hemoglobin 14.9, sodium 137, potassium 3.7, bicarb 40, BUN 37, creatinine 1.3, GFR 40, calcium 9.8, magnesium 2.5. Current Medications: The patient on, include aspirin, calcium carbonate, spironolactone 25 daily, pr avastatin, acetazolamide, pantoprazole, levothyroxine, allopurinol. Assessment And Plan: 1.Acute kidney injury secondary to cardiorenal, recovered. Continue current diuresis regimen. We w ill monitor. 2.Hypercapnic respiratory failure with metabolic alkalosis. Continue current treatment. Reinforce BiPAP. 3.Anemia, stable. 4.Hypokalemia. We will supplement. Continue spironolactone. 5.Chronic obstructive pulmonary disease, obstructive sleep apnea, as by Pulmonary. MICHI/FANY Voice ID: [id number] Report ID: [id number]
[2024-09-03 22:36] VITALS: O2SAT 96
[2024-09-04 05:01] LABS: Anion Gap 6.6 mEq/L (5.0-15.0); Potassium 3.6 mEq/L (3.5-5.1)
[2024-09-04] MEDS: POTASSIUM CL SA 10 MEQ TAB PO ONE (05:39)
--- NOTE | 2024-09-04 14:43 | P.DS ---
Admission Date: 08/21/24 Discharge Date: 09/04/24 Disposition: TRANSFER TO SNF - REHAB Discharge Condition: FAIR Reason for Admission: Hypoxic hypercapnic respiratory failure Hospital Course: Diagnosis Acute respiratory failure with hypoxia and hypercapnia secondary to acute on chronic COPD exacerbation Respiratory acidosis resolved, now metabolic alkalosis (contraction) Acute on chronic diastolic CHF Mild hematuria, improving NSTEMI; suspect demand ischemia hx CAD s/p prior PCI STEVE, secondary to cardiorenal NIDDM2 Hypothyroidism Patient presented with worsening shortness of breath. Multifactorial etiology secondary to acute on chronic COPD and CHF exacerbations. Chest xray with findings of possible edema/pleural effusion. Echocardiogram this hospitalization with 50-55% EF, diastolic dysfunction, dilated right ventricle with mild dysfunction, mild tricuspid regurgitation. Cardiology and Pulmonology were consulted. She initially received IV steroids, was placed on BiPAP, started on lasix drip, and had improvement of her symptoms. Her Lasix drip was deescalated to IV lasix 08/24 after < 24 hours and eventually transitioned to oral lasix 08/28 and she continued to show daily improvement. Her HCO3 and PCO2 were noted to uptrend initially during early hospitalization, suspect secondary to obesity hypoventilation syndrome with chronic hypercapnia and hypoxia. She was initially refusing BiPAP due to discomfort and claustrophobia. Discussed with patient importance of wearing her BiPAP mask as much as possible to reduce risk factors and minimize recurrent episodes. Her home lasix, metolazone were dc'd 08/30, and patient was restarted on her home spironolactone and continued to improve. She also was started on diamox per pulm recommendations 09/01. Dr. Urbina, pul, also felt patient would benefit from an outpatient NIV - to be delivered upon discharge. Patient was feeling better, breathing more comfortably on her home oxygen settings, afebrile without leukocytosis, lower extremity edema improving, and deemed stable for discharge. Her troponin's were noted to be mildly elevated this hospitalization but trended flat. (Peak 120). Suspect elevated troponin's secondary to demand ischemia in setting of CHF/COPD exacerbations, STEVE. No further inpatient cardiac work up warranted. Follow up with primary strap cutter in near future for further discussion. Medications: Follow up: PCP 3-5 days Nephrology 2-4 weeks Pulmonology 2-4 weeks Please call to schedule / confirm appointments Vital Signs/Physical Exam: Temp Pulse Resp BP Pulse Ox 98.4 F 83 16 119/55 L 94 09/04/24 12:00 09/04/24 12:00 09/04/24 12:00 09/04/24 12:00 09/04/24 12:00 General: Alert, In no apparent distress, Obese HEENT: Mucous membr. moist/pink, Sclerae nonicteric Neck: JVD not distended Respiratory: Diminished Cardiovascular: Normal S1 S2, Irregular heart rate/rhythm Gastrointestinal: Soft and benign, Non-distended, No tenderness Musculoskeletal: No swelling Integumentary: No cyanosis Neurological: Normal strength at 5/5 x4 extr Laboratory Data at Discharge: WBC 9.00 thou/uL (4.3-10.9) 09/02/24 05:36 Hgb 14.9 g/dL (12.0-15.0) 09/02/24 05:36 Hct 48.6 % (36.0-45.0) H 09/02/24 05:36 Plt Count 150 thou/uL (152-406) L 09/02/24 05:36 APTT 29.2 SECONDS (24.3-36.9) 08/22/24 04:46 Sodium 138 mEq/L (136-145) 09/04/24 04:08 Potassium 3.6 mEq/L (3.5-5.1) 09/04/24 04:08 BUN 41 mg/dL (7-18) H 09/04/24 04:08 Creatinine 1.43 mg/dL (0.55-1.02) H 09/04/24 04:08 Glucose 120 mg/dL (74-106) H 09/04/24 04:08 Uric Acid 4.8 mg/dL (2.6-6.0) 08/22/24 04:46 Phosphorus 3.5 mg/dL (2.5-4.9) 09/01/24 05:17 Magnesium 2.5 mg/dL (1.6-2.4) H 09/03/24 05:21 Total Bilirubin 0.4 mg/dL (0.2-1.0) 08/23/24 04:50 AST 19 U/L (15-37) 08/23/24 04:50 ALT 21 U/L (13-56) 08/23/24 04:50 Alkaline Phosphatase 62 U/L (45-117) 08/23/24 04:50 Triglycerides 105 mg/dL (<150) 08/22/24 04:46 Cholesterol 142 mg/dL (<200) 08/22/24 04:46 HDL Cholesterol 48 mg/dL (40-60) 08/22/24 04:46 Cholesterol/HDL Ratio 2.96 08/22/24 04:46 Home Medications: Allopurinol 300 mg PO DAILY 08/21/24 Levothyroxine [Synthroid*] 112 mcg PO [id number] 08/21/24 Rosuvastatin Calcium [Crestor] 20 mg PO DAILY 08/21/24 Sertraline [Zoloft*] 100 mg PO DAILY 08/21/24 Aspirin Tab [Albertina Aspirin*] 325 mg PO DAILY tab 09/04/24 Pantoprazole [Protonix Tab*] 40 mg PO DAILY tab 09/04/24 Spironolactone [Aldactone*] 25 mg PO DAILY tab 09/04/24 acetaZOLAMIDE [Acetazolamide] 250 mg PO DAILY #30 tab 09/04/24 New Medications: acetaZOLAMIDE [Acetazolamide] 250 mg PO DAILY #30 tab Physician Discharge Instructions: Physician discharge instructions: Patient presented with worsening shortness of breath. Multifactorial etiology secondary to acute on chronic COPD and CHF exacerbations. Chest xray with findings of possible edema/pleural effusion. Echocardiogram this hospitalization with 50-55% EF, diastolic dysfunction, dilated right ventricle with mild dysfunction, mild tricuspid regurgitation. Cardiology and Pulmonology were consulted. She initially received IV steroids, was placed on BiPAP, started on lasix drip, and had improvement of her symptoms. Her Lasix drip was deescalated to IV lasix 2 after < 24 hours and eventually transitioned to oral lasix 08/28 and she continued to show daily improvement. Her HCO3 and PCO2 were noted to uptrend initially during early hospitalization, suspect secondary to obesity hypoventilation syndrome with chronic hypercapnia and hypoxia. She was initially refusing BiPAP due to discomfort and claustrophobia. Discussed with patient importance of wearing her BiPAP mask as much as possible to reduce risk factors and minimize recurrent episodes. Her home lasix, metolazone were dc'd 08/30, and patient was restarted on her home spironolactone and continued to improve. She also was started on diamox per pulm recommendations 09/01. Dr. Urbina, pul, also felt patient would benefit from an outpatient NIV - to be delivered upon discharge. Patient was feeling better, breathing more comfortably on her home oxygen settings, afebrile without leukocytosis, lower extremity edema improving, and deemed stable for discharge. Her troponin's were noted to be mildly elevated this hospitalization but trended flat. (Peak 120). Suspect elevated troponin's secondary to demand ischemia in setting of CHF/COPD exacerbations, STEVE. No further inpatient cardiac work up warranted. Follow up with primary strap cutter in near future for further discussion. Medications: Follow up: PCP 3-5 days Nephrology 2-4 weeks Pulmonology 2-4 weeks Please call to schedule / confirm appointments Diet: ADA Activity: Fall precautions Followup: Dylan Urbina MD [ACTIVE - CAN ADMIT] - 1-2 Weeks Carmita Heath [ACTIVE - CAN ADMIT] - 1-2 Weeks NONE,NONE [Primary Care Provider] - 1-2 Weeks Time spent managing pt's care (in minutes): 40
--- NOTE | 2024-09-04 14:44 | PN ---
Date of Progress Note: 09/04/2024 Subjective: The patient was admitted with cardiorenal syndrome. The patient was diuresed, very well responded to diuresis. The patient feeling better. Started ambulating. The patient had hypercapni c respiratory failure. The patient was placed on acetazolamide. Lasix was held. Physical Examination: Vital Signs: When I saw the patient, blood pressure 117/64, pulse of 91, afebrile. Chest: Decreased entry bilateral base. Heart: S1, S2 regular. Abdomen: Soft, nontender. Extremities: Plus edema with erythema bilateral. Lab: WBC 4.9, hemoglobin 14.9. Sodium 138, potassium 3.6, bicarb 38, BUN 41, creatinine 1.4. Calci um 10.2, albumin 2.8, corrected calcium is 11. Current Medications: The patient on include: 1.Aspirin. 2.Calcium carbonate. 3.Rosuvastatin. 4.Spironolactone. 5.Acetazolamide. 6.Levothyroxine. Assessment And Plan: 1.Acute kidney injury secondary to cardiorenal, currently plateaued. We will continue current diure sis. Keep holding the Lasix for the time being. 2.Hypokalemia, we will supplement. Continue spironolactone. 3.Hypercalcemia. Discontinue calcium supplement. We will follow up. 4.Congestive heart failure with exacerbation. Continue current diuresis. 5.Alkalosis secondary to hypercapnic respiratory acidosis. Continue BiPAP. Follow up with Pulmonar yTrista BORDEN/FANY Voice ID: [id number] Report ID: [id number]
[2024-09-04 16:40] VITALS: BP 119/58; TEMP 97.8
== END 2024-09-04 17:45 | DRG 280 ==
LOC: ER 00:12 → ERHOLD 03:27 → 3RD-ICU 04:27 → 2ND 08-23 15:44
PROVIDERS: ADMIT Internal Medicine; ATTEND Internal Medicine
PROC: 4A033R1 Measurement of Arterial Saturation, Peripheral, Percutaneous Approach (ICD-10-PCS; principal; 2024-08-21)
PROC: 5A09557 Assistance with Respiratory Ventilation, Greater than 96 Consecutive Hours, Continuous Positive Airway Pressure (ICD-10-PCS; 2024-08-21)
PROC: 0T9B70Z Drainage of Bladder with Drainage Device, Via Natural or Artificial Opening (ICD-10-PCS; 2024-08-21)
DX: I13.0 Hypertensive heart and chronic kidney disease with heart failure and stage 1 through stage 4 chronic kidney disease, or unspecified chronic kidney disease (principal); I50.33 Acute on chronic diastolic (congestive) heart failure; I21.A1 Myocardial infarction type 2; J96.01 Acute respiratory failure with hypoxia; J96.02 Acute respiratory failure with hypercapnia; N17.0 Acute kidney failure with tubular necrosis; J44.1 Chronic obstructive pulmonary disease with (acute) exacerbation; E66.2 Morbid (severe) obesity with alveolar hypoventilation; Z68.42 Body mass index [BMI] 45.0-49.9, adult; E87.1 Hypo-osmolality and hyponatremia; E87.4 Mixed disorder of acid-base balance; N18.30 Chronic kidney disease, stage 3 unspecified; E11.22 Type 2 diabetes mellitus with diabetic chronic kidney disease; E11.40 Type 2 diabetes mellitus with diabetic neuropathy, unspecified; E03.9 Hypothyroidism, unspecified; I27.20 Pulmonary hypertension, unspecified; E83.52 Hypercalcemia; E78.5 Hyperlipidemia, unspecified; E87.6 Hypokalemia; L89.321 Pressure ulcer of left buttock, stage 1; L89.311 Pressure ulcer of right buttock, stage 1; R31.9 Hematuria, unspecified; Z88.5 Allergy status to narcotic agent; Z95.1 Presence of aortocoronary bypass graft; Z95.0 Presence of cardiac pacemaker; Z88.8 Allergy status to other drugs, medicaments and biological substances; Z79.84 Long term (current) use of oral hypoglycemic drugs; Z79.02 Long term (current) use of antithrombotics/antiplatelets; Z79.82 Long term (current) use of aspirin; Z79.890 Hormone replacement therapy; Z79.899 Other long term (current) drug therapy; Z91.199 Patient's noncompliance with other medical treatment and regimen due to unspecified reason
CPT/HCPCS: 36415; 36600; 71045; 76770; 80048; 80053; 80061; 80069; 80076; 81001; 82533; 82550; 82570; 82805; 82947; 83605; 83735; 83880; 83935; 83970; 84100; 84132; 84156; 84300; 84443; 84484; 84550; 85025; 85027; 85730; 86021; 86038; 86160; 86225; 86430; 86803; 93005; 93306; 94640; 94660; 94760; 96374; 97110; 97116; 97161; 97530; 99285; J1644; J1940; J2919; J7644

== ENCOUNTER 2024-09-10 12:57 | Inpatient (IN) | payer OTHER ==
[2024-09-10 13:44] LABS: Absolute Eosinophils 0.2 K/uL (0-0.5); Absolute Lymphocytes (CBC) 0.4 K/uL (0.7-4.9); Absolute Monocytes 0.9 K/uL (0.1-1.3); Absolute Neutrophil 6.9 K/uL (1.8-8.0); Basophils % 0.3 % (0-1.3); Eosinophils % 2.1 % (0-4.4); Hematocrit 51.6 % (36.0-45.0); Hemoglobin 15.2 g/dL (12.0-15.0); Lymphocytes % 4.6 % (15.3-44.8); MCH 27.3 pg (27.0-35.0); MCHC 29.5 g/dL (32.0-36.0); MCV 92.7 fL (80-100); MPV 10.5 fL (7.6-11.3); Platelets 171 thou/uL (152-406); RBC Red Blood Cell Count 5.56 M/uL (3.86-4.86); Red Cell Distribution Width 17.2 % (12.1-15.2)
[2024-09-10 14:04] LABS: Anion Gap 5.5 mEq/L (5.0-15.0); Potassium 4.5 mEq/L (3.5-5.1); Troponin High Sensitivity 31.1 pg/mL (<58.9)
--- NOTE | 2024-09-10 14:19 | EDPHYS ---
Physician Documentation [facility] Name: Clare Oleary Age: 79 yrs Sex: Female : 1945 Arrival Date: 09/10/2024 Time: 12:57 Bed 19 Private MD: ED Physician Yo Cotton HPI: 09/10 13:24 This 79 yrs old Female presents to ER via EMS with complaints of Shortness Of ec2 Breath. 13:24 Patient arrives today for evaluation of possible shortness of breath. Patient comes ec2 from a nursing facility, there were having issues with her oxygenation and called EMS. EMS states that they placed her on nonrebreather and patient with no significant work of breathing with saturations in the mid upper 90s. Patient has initially no specific complaints however did report some shortness of breath to nursing facility. No fevers or chills, no nausea or vomiting. No cough and cold symptoms.. Historical: - Allergies: 13:10 Codeine; me1 13:10 hydrochlorothiazide; me1 13:10 Triamterene; me1 13:10 maxide; me1 - PMHx: 13:10 Congestive heart failure; diabetes mellitus; Hypertensive disorder; hyperlipidemia me1 (Unknown); Gastroesophageal reflux disease; Hypothyroidism; - PSHx: 13:10 Coronary Angioplasty; Coronary artery bypass graft; pacemaker; me1 - Immunization history:: Adult Immunizations up to date. - Infectious Disease History:: Denies. - Social history:: Smoking status: unknown. ROS: 13:24 Constitutional: as per hpi ec2 Exam: 13:24 Constitutional: GEN: NAD Head: atraumatic Eyes: EOMI Ears: External ears are ec2 normal. CV: regular rate LUNGS: no respiratory distress, no wheezes, no rales, no rhonchi ABD: non-distended SKIN: no evidence of rashes MSK: no evidence of trauma Vital Signs: 13:02 BP 157 / 100; Pulse 99; Resp 20; Temp 98.2; Pulse Ox 100% on Non-rebreather mask; Pain me1 0/10; 13:17 Weight 106.1 kg; Height 5 ft. 0 in. ; me1 14:20 BP 131 / 50; Pulse 98; Resp 18; Pulse Ox 93% on 4 lpm NC; rs5 15:34 BP 164 / 111; Pulse 94; Resp 18; Pulse Ox 93% on 4 lpm NC; rs5 17:34 BP 121 / 64; Pulse 97; Resp 17; Pulse Ox 93% on 4 lpm NC; rs5 18:57 BP 120 / 64; Pulse 91; Resp 17; Pulse Ox 93% 4 lpm ; rs5 19:20 BP 130 / 62; Pulse 97; Resp 16; Temp 97.2(TE); Pulse Ox 95% on 4 lpm NC; br2 13:17 Body Mass Index 45.68 (106.10 kg, 152.4 cm) me1 13:02 Pain Scale: Adult me1 13:02 o2 removed, room air sat dropped to 84%. Applied NC at 4 lpm and sat increased to 95% me1 MDM: 13:03 Medical Screening Exam initiated ec2 13:24 Data reviewed: vital signs, nurses notes. ED course: Patient arrives today for possible ec2 shortness of breath. Examination is unrevealing. Initially patient arrived on oxygen, I was able to take the patient off of oxygen and she is saturating in the mid to upper 90s comfortably on room air. Will obtain a cardiac profile. . 13:41 ED course: EKG independently reviewed and interpreted by me, shows ventricularly paced ec2 rhythm with a rate of 98 with no acute pathology identified.. 14:11 ED course: Metabolic profile is nonactionable. Troponin is within normal ranges. CBC is ec2 reassuring. BNP at 7600. . 14:12 ED course: BNP improved from most recent visit. ec2 14:13 ED course: Chest x-ray independently reviewed and interpreted by me, appears grossly ec2 unchanged from most recent chest x-ray, has still remaining left trace pleural effusion.. 14:18 ED course: Patient had recurrent hypoxia with saturations in the mid eights ec2 subsequently placed on 4 L of oxygen nasal cannula. Will admit for diuresis. Discussed case with hospitalist, pending admission.. 09/10 13:03 Order name: Basic Metabolic Panel; Complete Time: 14:09 ec2 09/10 13:03 Order name: CBC with Diff; Complete Time: 14:00 ec2 09/10 13:03 Order name: NT PRO-BNP; Complete Time: 14:09 ec2 09/10 13:03 Order name: Troponin HS; Complete Time: 14:09 ec2 09/10 17:13 Order name: CBC with Automated Diff EDMS 09/10 17:13 Order name: CBC with Automated Diff EDSD 09/10 17:13 Order name: Comprehensive Metabolic Panel EDSD 09/10 17:13 Order name: Comprehensive Metabolic Panel EDSD 09/10 17:13 Order name: Troponin High Sensitivity EDMS 09/10 17:13 Order name: Troponin High Sensitivity EDSD 09/10 17:13 Order name: Troponin High Sensitivity EDSD 09/10 17:13 Order name: Troponin High Sensitivity EDSD 09/10 13:03 Order name: XRAY Chest (1 view); Complete Time: 15:46 ec2 09/10 13:03 Order name: EKG; Complete Time: 13:04 ec2 09/10 17:13 Order name: CONS Physician Consult EDSD 09/10 13:03 Order name: Cardiac monitoring; Complete Time: 14:41 ec2 09/10 13:03 Order name: EKG - Nurse/Tech; Complete Time: 14:41 ec2 09/10 13:03 Order name: IV Saline Lock; Complete Time: 14:41 ec2 09/10 13:03 Order name: Labs collected and sent; Complete Time: 14:41 ec2 09/10 13:03 Order name: O2 Per Protocol; Complete Time: 13:18 ec2 09/10 13:03 Order name: O2 Sat Monitoring; Complete Time: 14:41 ec2 Administered Medications: 14:41 Drug: Furosemide IVP 40 mg IVP once; give over 2 minutes Route: IVP; Site: right rs5 antecubital; 15:01 Follow up: Response: No adverse reaction rs5 Disposition Summary: 09/10/24 14:18 Hospitalization Ordered Notes: Hospitalization Status: Inpatient Admission ec2 Provider: Dinesh Camacho ec2 Location: Telemetry/[facility]Sur (Inpatient) ec2 Condition: Stable ec2 Problem: an acute exacerbation ec2 Symptoms: have improved ec2 Bed/Room Type: Standard ec2 Room Assignment: 408(09/10/24 17:20) bd Diagnosis - Heart failure, unspecified ec2 - Hypoxia ec2 Forms: - Medication Reconciliation Form ec2 - SBAR form ec2 - Leadership Thank You Letter ec2 Signatures: Dispatcher [employer] EDSD Iris Maldonado Ricky RN RN rs5 Sun Nicholson RN RN me1 Yo Cotton MD MD ec2 Corrections: (The following items were deleted from the chart) 17:20 14:18 ec2 bd
--- NOTE | 2024-09-10 14:19 | ER ---
Nurse's Notes [facility] Name: Clare Oleary Age: 79 yrs Sex: Female : 1945 Arrival Date: 09/10/2024 Time: 12:57 Bed 19 Private MD: Diagnosis: Heart failure, unspecified;Hypoxia Presentation: 09/10 13:02 Chief complaint: EMS states: toned out for SOB and o2 sat that was 88% on bipap. NRB by la[facility] EMS with 02 sat of 96-100%. Paced rhythm. Denies SOB to nurse on arrival but did tell Dr Cotton that she felt SOB. Room air sat of 84. Coronavirus screen: Vaccine status: Patient reports receiving the 2nd dose of the covid vaccine. Ebola Screen: No symptoms or risks identified at this time. Initial Sepsis Screen: Does the patient meet any 2 criteria? HR > 90 bpm. Risk Assessment: Do you want to hurt yourself or someone else? Patient reports no desire to harm self or others. Onset of symptoms is unknown. 13:02 Method Of Arrival: [place] [facility] [place] [facility] [place] Initial Sepsis Screen: Does the patient have a suspected source of infection? No. rs5 Patient's initial sepsis screen is negative. Triage Assessment: 13:10 General: Appears in no apparent distress. comfortable, well developed, Behavior is me1 calm, cooperative, appropriate for age, Reports SOB when asked by Dr Cotton. Denied sob to EMS and to nurse. Pain: Denies pain. EENT: No signs and/or symptoms were reported regarding the EENT system. Neuro: Level of Consciousness is awake, alert, obeys commands, Oriented to person, place, time, situation, Appropriate for age. Cardiovascular: Patient's skin is warm and dry. Respiratory: Reports shortness of breath at rest Airway is patent Respiratory effort is even, unlabored, Respiratory pattern is regular, symmetrical, Onset: The symptoms/episode began/occurred this morning, the patient has mild shortness of breath. GI: No signs and/or symptoms were reported involving the gastrointestinal system. : No signs and/or symptoms were reported regarding the genitourinary system. Derm: Skin is healthy with good turgor, Skin is pink, warm \T\ dry. Musculoskeletal: No signs and/or symptoms reported regarding the musculoskeletal system. Historical: - Allergies: 13:10 Codeine; me1 13:10 hydrochlorothiazide; me1 13:10 Triamterene; me1 13:10 maxide; me1 - PMHx: 13:10 Congestive heart failure; diabetes mellitus; Hypertensive disorder; hyperlipidemia me1 (Unknown); Gastroesophageal reflux disease; Hypothyroidism; - PSHx: 13:10 Coronary Angioplasty; Coronary artery bypass graft; pacemaker; me1 - Immunization history:: Adult Immunizations up to date. - Infectious Disease History:: Denies. - Social history:: Smoking status: unknown. Screenin:13 [facility] ED Fall Risk Assessment (Adult) History of falling in the last 3 months, me1 including since admission No falls in past 3 months (0 pts) Confusion or Disorientation No (0 pts) Intoxicated or Sedated No (0 pts) Impaired Gait No (0 pts) Mobility Assist Device Used No (0 pt) Altered Elimination No (0 pt) Score/Fall Risk Level 0 - 2 = Low Risk Maintained a safe environment, Provided non-skid footwear, Hourly rounding (assess needs \T\ fall precautionary measures) done. Abuse screen: Denies threats or abuse. Nutritional screening: No deficits noted. Tuberculosis screening: No symptoms or risk factors identified. Assessment: 13:13 General: See triage assessment. . Cardiovascular:. Cardiovascular: Rhythm is me1 Respiratory: Reports shortness of breath cough that is Airway is patent Respiratory effort is even, unlabored, Respiratory pattern is regular, symmetrical, Breath sounds are clear bilaterally. 13:13 Pain: Denies pain. Neuro: Level of Consciousness is awake, alert, obeys commands, rs5 Oriented to person, place, time, situation. GI: Abdomen is obese. : No signs and/or symptoms were reported regarding the genitourinary system. EENT: No signs and/or symptoms were reported regarding the EENT system. Derm: Skin is intact, Skin is pink, warm \T\ dry. Musculoskeletal: Range of motion: limited in all extremities. 14:22 Reassessment: Patient and/or family updated on plan of care and expected duration. Pain rs5 level reassessed. Patient is alert, oriented x 3, equal unlabored respirations, skin warm/dry/pink. 15:34 Reassessment: Patient and/or family updated on plan of care and expected duration. Pain rs5 level reassessed. Patient is alert, oriented x 3, equal unlabored respirations, skin warm/dry/pink. 16:41 Reassessment: Patient and/or family updated on plan of care and expected duration. Pain rs5 level reassessed. Patient is alert, oriented x 3, equal unlabored respirations, skin warm/dry/pink. 17:34 Reassessment: Patient and/or family updated on plan of care and expected duration. Pain rs5 level reassessed. Patient is alert, oriented x 3, equal unlabored respirations, skin warm/dry/pink. 18:41 Reassessment: Patient and/or family updated on plan of care and expected duration. Pain rs5 level reassessed. Patient is alert, oriented x 3, equal unlabored respirations, skin warm/dry/pink. 19:20 Reassessment: Patient and/or family updated on plan of care and expected duration. Pain br2 level reassessed. Patient is alert, oriented x 3, equal unlabored respirations, skin warm/dry/pink. General: Appears in no apparent distress. comfortable, Behavior is calm. Vital Signs: 13:02 BP 157 / 100; Pulse 99; Resp 20; Temp 98.2; Pulse Ox 100% on Non-rebreather mask; Pain me1 0/10; 13:17 Weight 106.1 kg; Height 5 ft. 0 in. ; me1 14:20 BP 131 / 50; Pulse 98; Resp 18; Pulse Ox 93% on 4 lpm NC; rs5 15:34 BP 164 / 111; Pulse 94; Resp 18; Pulse Ox 93% on 4 lpm NC; rs5 17:34 BP 121 / 64; Pulse 97; Resp 17; Pulse Ox 93% on 4 lpm NC; rs5 18:57 BP 120 / 64; Pulse 91; Resp 17; Pulse Ox 93% 4 lpm ; rs5 19:20 BP 130 / 62; Pulse 97; Resp 16; Temp 97.2(TE); Pulse Ox 95% on 4 lpm NC; br2 13:17 Body Mass Index 45.68 (106.10 kg, 152.4 cm) me1 13:02 Pain Scale: Adult me1 13:02 o2 removed, room air sat dropped to 84%. Applied NC at 4 lpm and sat increased to 95% me1 ED Course: 13:02 Patient arrived in ED. me1 13:03 Yo Cotton MD is Attending Physician. ec2 13:09 Triage completed. me1 13:10 Arm band placed on Patient placed in an exam room. me1 13:13 Patient has correct armband on for positive identification. Bed in low position. Call me1 light in reach. Side rails up X2. Provided Education on: POC. Verbalized understanding. Client placed on continuous cardiac and pulse oximetry monitoring. NIBP monitoring applied. Pulse ox on. NIBP on. 13:13 No provider procedures requiring assistance completed. me1 13:42 EKG done, by ED staff. tm3 13:43 Sudhir Cortes, RN is Primary Nurse. rs5 14:01 XRAY Chest (1 view) In Process Unspecified. EDMS 14:18 Dinesh Camacho MD is Hospitalizing Provider. ec2 19:31 Report received from SUDHIR. br2 19:35 Patient admitted, IV remains in place. br2 Administered Medications: 14:41 Drug: Furosemide IVP 40 mg IVP once; give over 2 minutes Route: IVP; Site: right rs5 antecubital; 15:01 Follow up: Response: No adverse reaction rs5 Medication: 13:13 VIS not applicable for this client. me1 Outcome: 14:18 Decision to Hospitalize by Provider. ec2 19:35 Condition: stable br2 19:35 Instructed on the need for admit, 19:35 Admitted to Med/surg accompanied by tech, via stretcher, with oxygen, br2 19:38 Patient left the ED. br2 Signatures: Dispatcher [employer] EDAL Goldy Borjas tm3 Sudhir Cortes, RN RN rs5 Sun Nicholson RN RN me1 Yo Cotton MD MD ec2 Adriana Toth, NOHEMI RN br2 Corrections: (The following items were deleted from the chart) 15:34 13:13 Respiratory: Airway is patent Respiratory effort is even, unlabored, Respiratory rs5 pattern is regular, symmetrical, Breath sounds are clear bilaterally. me1 15:34 13:13 Cardiovascular: Rhythm is me1 rs5 17:39 15:34 BP 164 / 111; Pulse 94bpm; Resp 18bpm; Pulse Ox 95% 2 lpm Nasal Cannula; rs5 rs5
[2024-09-10] MEDS ORDERED: FUROSEMIDE 40 MG/4 ML VIAL ONE (14:51)
--- NOTE | 2024-09-10 15:22 | RAD REPORT ---
EXAMINATION: ONE VIEW CHEST XR CLINICAL INDICATION: Female, 79 years old.,DYSPNEA TECHNIQUE: Frontal chest projection is submitted. Examination is limited by patient positioning and t echnique. COMPARISON: 09/03/2024. FINDINGS: The lungs are hypoinflated and left basilar opacities. Bilateral central interstitial prominence. No pneumothorax. The heart is normal in size. Mediastinal contours are unremarkable. Left chest wall pacer, and descending aortic graft in place. IMPRESSION: Central interstitial prominence concerning for CHF. Left pleuroparenchymal opacity, pneumonia should be considered.
[2024-09-10] MEDS ORDERED: ONDANSETRON 4 MG/2 ML VIAL IV PRN (17:09)
--- NOTE | 2024-09-10 17:13 | P.HP ---
Certification for Inpatient Patient admitted to: Inpatient With expected LOS: >2 Midnights Patient will require the following post-hospital care: None Practitioner: I am a practitioner with admitting privileges, knowledge of patient current condition, hospital course, and medical plan of care. Services: Services provided to patient in accordance with Admission requirements found in Title 42 Section 412.3 of the Code of Federal Regulations Patient History Date of Service: 09/10/24 Reason for admission: Acute respiratory distress History of Present Illness: Patient is a 79-year-old female who presented to the hospital with shortness of breath. Patient was at home and she was having a hard time with her breathing. She lives with her Family, and they noted that she was not feeling well. Patient respiratory status was not improving and she has been short of breath for the last 24 hours so they called EMS. EMS brought patient into the emergenc y room. In the ER, patient room air O2 sats were in the low 80s. Patient was started on neb treatments. Patient was diuresed and placed on BiPAP support. Decision was made to admit the patient to the hospital for inpatient hospitalization. Patient had a pleural effusion. Patient may benefit from thoracentesis. Continue with antibiotic therapy along with steroids and neb treatments. Allergies codeine [Codeine] Allergy (Severe, Verified 04/10/17 11:24) Nausea/Vomiting hydrochlorothiazide [From Maxzide] Allergy (Severe, Verified 04/10/17 11:24) Anaphylaxis triamterene [From Maxzide] Allergy (Severe, Verified 04/10/17 11:24) Anaphylaxis maxide Allergy (Severe, Uncoded 04/10/17 11:24) Anaphylaxis Home Medications: Allopurinol 300 mg PO DAILY 08/21/24 Levothyroxine [Synthroid*] 112 mcg PO [id number] 08/21/24 Rosuvastatin Calcium [Crestor] 20 mg PO DAILY 08/21/24 Sertraline [Zoloft*] 100 mg PO DAILY 08/21/24 Aspirin Tab [Albertina Aspirin*] 325 mg PO DAILY tab 09/04/24 Pantoprazole [Protonix Tab*] 40 mg PO DAILY tab 09/04/24 Spironolactone [Aldactone*] 25 mg PO DAILY tab 09/04/24 acetaZOLAMIDE [Acetazolamide] 250 mg PO DAILY #30 tab 09/04/24 - Past Medical/Surgical History Diabetic: Yes -: HTN -: Hypothyroid -: Hyperlipidemia -: CHF -: DM -: R total knee -: Reaux-Y bypass -: ACL repair 1979 -: Tonsillectomy -: aortic dissection repair 06/2019 -: pacemaker - Family History Father Medical History: Heart disease, Cancer Mother Medical History: Cancer Sister Medical History: Heart disease - Social History Smoking Status: Former smoker Alcohol use: No CD- Drugs: No Caffeine use: Yes Review of Systems 10-point ROS is otherwise unremarkable Physical Examination - Vital Signs Temperature: 98 F Blood Pressure: 140/80 Pulse: 80 Respirations: 18 Pulse Ox (%): 95 - Physical Exam General: Alert, In no apparent distress, Oriented x3 HEENT: Atraumatic, PERRLA, Mucous membr. moist/pink, EOMI, Sclerae nonicteric Neck: Supple, 2+ carotid pulse no bruit, No LAD, Without JVD or thyroid abnormality Respiratory: Diminished, Expiratory wheezes Cardiovascular: Regular rate/rhythm, Normal S1 S2, Systolic murmur Gastrointestinal: Normal bowel sounds, Soft and benign, Non-distended, No tenderness Musculoskeletal: No clubbing, No tenderness, Swelling Integumentary: No rashes Neurological: Normal speech, Normal tone, Sensation intact, Cranial nerves 3-12 intact, Normal affect, Abnormal gait, Abnormal strength Lymphatics: No axilla or inguinal lymphadenopathy - Studies Laboratory Data (last 24 hrs) 09/10/24 09/10/24 13:34 13:34 WBC 8.40 Hgb 15.2 H Hct 51.6 H Plt Count 171 Sodium 136 Potassium 4.5 BUN 31 H Creatinine 1.25 H Glucose 129 H Assessment & Plan - Problems (Diagnosis) (1) Acute on chronic diastolic heart failure Current Visit: No Status: Acute (2) HTN (hypertension) Current Visit: No Status: Acute (3) NSTEMI (non-ST elevated myocardial infarction) Current Visit: No Status: Acute (4) Respiratory failure with hypoxia and hypercapnia Current Visit: No Status: Acute Qualifiers: Chronicity: unspecified Qualified Code(s): J96.91 - Respiratory failure, unspecified with hypoxia; J96.92 - Respiratory failure, unspecified with hypercapnia - Plan 1. Acute CHF exacerbation; acute systolic and diastolic dysfunction; continue with diuresing patient. Review echocardiogram. Cardiology consulted 2. History of hypertension; resume antihypertensives 3. Hyperlipidemia; resume statin therapy 4. Pleural effusion; diurese patient. Consult pulmonology 5. GI DVT prophylaxis Discharge Plan: Home Plan to discharge in: Greater than 2 days - Advance Directives Does patient have a Living Will: Yes Does patient have a Durable POA for Healthcare: No - Code Status/Comfort Care Code Status Assessed: Yes Code Status: Full Code Critical Care: No Time Spent Managing PTS Care (In Minutes): 45
[2024-09-10] MEDS ORDERED: VANCOMYCIN 1 GM in NA CHLORIDE 0.9% 250 ML IVPB SCH (18:00)
[2024-09-10] MEDS: PIPER TAZO 3.375 GM in NA CHLORIDE 0.9% 100 ML IV SCH (20:41)
[2024-09-10] MEDS: VANCOMYCIN 2.75 GM in NA CHLORIDE 0.9% 500 ML IVPB ONE (20:42)
[2024-09-11] MEDS: LEVOTHYROXINE SOD 0.112 MG TAB PO SCH (05:22)
[2024-09-11] MEDS: ALBUTEROL 2.5 MG/3 ML NEB SOL NEB PRN (05:54)
[2024-09-11] MEDS: IPRATROPIUM BROM 0.5MG/2.5ML NEB PRN (05:54)
[2024-09-11 06:18] LABS: Absolute Eosinophils 0.3 K/uL (0-0.5); Absolute Lymphocytes (CBC) 0.5 K/uL (0.7-4.9); Absolute Monocytes 1.1 K/uL (0.1-1.3); Basophils % 0.5 % (0-1.3); Eosinophils % 3.5 % (0-4.4); Hematocrit 49.9 % (36.0-45.0); Hemoglobin 14.8 g/dL (12.0-15.0); Lymphocytes % 6.4 % (15.3-44.8); MCH 27.2 pg (27.0-35.0); MCHC 29.6 g/dL (32.0-36.0); MCV 91.9 fL (80-100); MPV 10.5 fL (7.6-11.3); Monocytes % 14.3 % (3.3-12.3); Neutrophils % 75.3 % (41.7-73.7); Nucleated Red Blood Cells % 0.3 % (0-0); Platelets 158 thou/uL (152-406); RBC Red Blood Cell Count 5.43 M/uL (3.86-4.86); Red Cell Distribution Width 16.6 % (12.1-15.2)
[2024-09-11 06:50] LABS: Albumin 3.2 g/dL (3.4-5.0); Albumin/Globulin Ratio 0.9 (1.1-1.8); Anion Gap 5.6 mEq/L (5.0-15.0); Bilirubin Total 0.7 mg/dL (0.2-1.0); Globulin 3.7 g/dL (2.3-3.5); Potassium 3.6 mEq/L (3.5-5.1); Protein, Total 6.9 g/dL (6.4-8.2); Troponin High Sensitivity 38.4 pg/mL (<58.9)
[2024-09-11] MEDS: acetaZOLAMIDE 250 MG TAB PO SCH (08:36)
[2024-09-11] MEDS: SPIRONOLACTONE 25 MG TABLET PO SCH (08:36)
[2024-09-11] MEDS: SERTRALINE HCL 100 MG TAB PO SCH (08:36)
[2024-09-11] MEDS: allopurinoL 300 MG TAB PO SCH (08:36)
[2024-09-11] MEDS: FUROSEMIDE 40 MG/4 ML VIAL IV SCH (09:54)
--- NOTE | 2024-09-11 11:47 | EKG ---
Test Date: 2024-09-10 Test Time: 13:38:59 Paper Core Machine Operator: TM MEASUREMENT RESULTS: Intervals: Rate: 98 FL: 192 QRSD: 160 QT: 400 QTc: 510 Gary: P: 54 FL: 192 QRS: -81 T: 86 INTERPRETIVE STATEMENTS: Electronic ventricular pacemaker Compared to ECG 08/21/2024 00:26:14 Sinus rhythm no longer present Left-axis deviation no longer present Left bundle-branch block no longer present Electronically Signed On 09-11-24 11:46:45 RESIDENTIAL SOLAR SALES CONSULTANT by Carlos Angeles
--- NOTE | 2024-09-11 14:28 | P.PN ---
Subjective Date of Service: 09/11/24 Chief Complaint: Acute respiratory distress Subjective: No new changes (Patient report no change, no dyspnea at rest, patient is coughing but unable to expectorate, denied any chest pain.) Review of Systems Other: Consitutional; fever(-), chills (-), rigor(-), night sweat(-), unintentional weight loss(-) HEENT; epistaxis (-), otorrhea (-), otalgia (-) Respiratory; shortness of breath (+), wheezing (-), cough (+), sputum (+), pleuritic chest pain (-) Cardiovascular; chest pain (-), peripheral edema (-), paroxysmal nocturnal dyspnea (-), orthopnea (-) Gastrointestinal; nausea (-), vomiting (-), abdominal pain (-), diarrhea (-), constipation (-), melena (-), hematochezia (-) Urinary; urinary frequency (-), dysuria (-), urgency (-), flank pain (-), gross hematuria (-) Skin; rash (-), pruritus (-) 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 General: Morbidly obese, chronic ill-looking in no apparent distress,. HEENT: Normocephalic, atraumatic,. Neck: Supple, without JVD or goiter or thyroid mass. Respiratory: Coarse breath sound bilaterally , no wheezing. Cardiovascular: Regular rate and rhythm, S1, S2 normal, no murmur no gallop. Gastrointestinal: Normal bowel sounds, nondistended, nontender, No ascites, , No masses, no hepatosplenomegaly. Musculoskeletal: No clubbing, No peripheral edema. Integumentary: No rashes. Lymphatics: No axilla or cervical lymphadenopathy. Neurology; alert awake oriented x3, no focal neurologic deficit Assessment And Plan - Plan This is 79 years old female patient with multiple comorbidity status post Marnie-en-Y bypass surgery, morbid obesity, heart failure, diabetes, status post a repair of abdominal aortic aneurysm who recently admitted to the hospital for pneumonia and pleural effusion discharged to correction, returned to the hospital for worsening dyspnea and readmitted on the general medical floor 1. Acute CHF exacerbation; acute systolic and diastolic dysfunction #2 left pleural effusion rule out questionable pneumonia 3. Hyperlipidemia; resume statin therapy Will start furosemide 40 mg IV every 12 hour, continue nasal cannula 5 L, empiric antibiotics with Vanco and Zosyn, I will order procalcitonin level, patient will consider discontinue empiric antibiotics
--- NOTE | 2024-09-11 15:51 | P.CNS ---
Date of Consult: 09/11/24 Reason for Consult: Respiratory distress Chief Complaint: Acute respiratory distress History of Present Illness: Patient is 79 years of age presented to the hospital with shortness of breath very poor historian having a hard time breathing found to have low sats patient is morbidly obese and a little better denies any history of COPD History of congestive heart failure patient is on spironolactone and Diamox Allergies codeine [Codeine] Allergy (Severe, Verified 04/10/17 11:24) Nausea/Vomiting hydrochlorothiazide [From Maxzide] Allergy (Severe, Verified 04/10/17 11:24) Anaphylaxis triamterene [From Maxzide] Allergy (Severe, Verified 04/10/17 11:24) Anaphylaxis maxide Allergy (Severe, Uncoded 04/10/17 11:24) Anaphylaxis Home Medications: Allopurinol 300 mg PO DAILY 08/21/24 Levothyroxine [Synthroid*] 112 mcg PO [id number] 08/21/24 Rosuvastatin Calcium [Crestor] 20 mg PO DAILY 08/21/24 Sertraline [Zoloft*] 100 mg PO DAILY 08/21/24 Aspirin Tab [Albertina Aspirin*] 325 mg PO DAILY tab 09/04/24 Pantoprazole [Protonix Tab*] 40 mg PO DAILY tab 09/04/24 Spironolactone [Aldactone*] 25 mg PO DAILY tab 09/04/24 acetaZOLAMIDE [Acetazolamide] 250 mg PO DAILY #30 tab 09/04/24 - Past Medical/Surgical History Diabetic: Yes -: HTN -: Hypothyroid -: Hyperlipidemia -: CHF -: DM -: R total knee -: Reaux-Y bypass -: ACL repair 1979 -: Tonsillectomy -: aortic dissection repair 06/2019 -: pacemaker -: CABG - Family History Father Medical History: Heart disease, Cancer Mother Medical History: Cancer Sister Medical History: Heart disease - Social History Smoking Status: Unknown if ever smoked Alcohol use: No CD- Drugs: No Caffeine use: Yes Place of Residence: Home Review of Systems Unremarkable General: Weakness Respiratory: Shortness of Breath Physical Examination Temp Pulse Resp BP Pulse Ox 98.5 F 106 H 20 120/65 92 09/11/24 14:28 09/11/24 14:28 09/11/24 14:28 09/11/24 14:28 09/11/24 14:28 General: Alert, Oriented x3 Respiratory: Clear to auscultation bilaterally, Diminished Cardiovascular: No edema, Regular rate/rhythm, Normal S1 S2, Edema Gastrointestinal: Normal bowel sounds, Soft and benign - Problems (1) Respiratory failure with hypoxia and hypercapnia Current Visit: No Status: Acute Plan: Patient is 79 years of age with a history of I suspect obesity hypoventilation syndrome of hypoxemia hypercarbia morbid obesity with respiratory distress patient may benefit from a noninvasive ventilator she has chronic stable respiratory failure no evidence or history of obstructive sleep apnea patient's vital signs are stable continue with diuresis check ABGs chest x-ray poor respiratory effort DC antibiotics for now patient's BNP is over 7000 Qualifiers: Chronicity: unspecified Qualified Code(s): J96.91 - Respiratory failure, unspecified with hypoxia; J96.92 - Respiratory failure, unspecified with hypercapnia
[2024-09-11 18:26] LABS: Arterial Blood Carboxyhemoglob 1.1 % (0-1.5); Blood Gas Oxyhemoglobin 91.8 % (94-97); Blood Gas THB 15.4 g/dl (12-18); Blood O2 Saturation 94.6 % (92-98.5)
[2024-09-11 22:41] VITALS: BMI 6552.0
[2024-09-12] MEDS ORDERED: VANCOMYCIN 2 GM in NA CHLORIDE 0.9% 500 ML IVPB SCH ×2 (08:00→09:00)
--- NOTE | 2024-09-12 12:21 | P.PN ---
Subjective Date of Service: 09/12/24 Chief Complaint: Respiratory failure No change in patient's condition is hypoxic hypercapnic Review of Systems Unremarkable Physical Examination - Vital Signs Temperature: 97.4 F Blood Pressure: 175/81 Pulse: 105 Respirations: 18 Pulse Ox (%): 93 - Physical Exam General: Oriented x3, Oriented x2 Respiratory: Clear to auscultation bilaterally Other Physical/Emotional Findings: - Physical Exam. General: Morbidly obese, chronic ill-looking in no apparent distress,. HEENT: Normocephalic, atraumatic,. Neck: Supple, without JVD or goiter or thyroid mass. Respiratory: Coarse breath sound bilaterally , no wheezing. Cardiovascular: Regular rate and rhythm, S1, S2 normal, no murmur no gallop. Gastrointestinal: Normal bowel sounds, nondistended, nontender, No ascites, , No masses, no hepatosplenomegaly. Musculoskeletal: No clubbing, No peripheral edema. Integumentary: No rashes. Lymphatics: No axilla or cervical lymphadenopathy. Neurology; alert awake oriented x3, no focal neurologic deficit Assessment And Plan - Current Problems (Diagnosis) (1) Respiratory failure with hypoxia and hypercapnia Current Visit: No Status: Acute Plan: Patient has chronic respiratory failure benefit from a noninvasive ventilator and we will also start patient on BiPAP and is on diuretic blood pressure is still elevated increase Diamox to 250 twice daily Qualifiers: Chronicity: unspecified Qualified Code(s): J96.91 - Respiratory failure, unspecified with hypoxia; J96.92 - Respiratory failure, unspecified with hypercapnia
--- NOTE | 2024-09-12 13:32 | P.PN ---
Subjective Date of Service: 09/12/24 Chief Complaint: Respiratory failure Subjective: No new changes Review of Systems Other: Consitutional; fever(-), chills (-), rigor(-), night sweat(-), unintentional weight loss(-) HEENT; epistaxis (-), otorrhea (-), otalgia (-) Respiratory; shortness of breath (+), wheezing (-), cough (+), sputum (+), pleuritic chest pain (-) Cardiovascular; chest pain (-), peripheral edema (-), paroxysmal nocturnal dyspnea (-), orthopnea (-) Gastrointestinal; nausea (-), vomiting (-), abdominal pain (-), diarrhea (-), constipation (-), melena (-), hematochezia (-) Urinary; urinary frequency (-), dysuria (-), urgency (-), flank pain (-), gross hematuria (-) Skin; rash (-), pruritus (-) 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 General: Morbidly obese, chronic ill-looking in no apparent distress,. HEENT: Normocephalic, atraumatic,. Neck: Supple, without JVD or goiter or thyroid mass. Respiratory: Coarse breath sound bilaterally with less rhonchi, no wheezing. Cardiovascular: Regular rate and rhythm, S1, S2 normal, no murmur no gallop. Gastrointestinal: Normal bowel sounds, nondistended, nontender, No ascites, , No masses, no hepatosplenomegaly. Musculoskeletal: No clubbing, No peripheral edema. Integumentary: No rashes. Lymphatics: No axilla or cervical lymphadenopathy. Neurology; alert awake oriented x3, no focal neurologic deficit Assessment And Plan - Plan This is 79 years old female patient with multiple comorbidity status post Marnie-en-Y bypass surgery, morbid obesity, heart failure, diabetes, status post a repair of abdominal aortic aneurysm who recently admitted to the hospital for pneumonia and pleural effusion discharged to assisted, returned to the hospital for worsening dyspnea and readmitted on the general medical floor 1. Acute CHF exacerbation; acute systolic and diastolic dysfunction #2 left pleural effusion rule out questionable pneumonia 3. Hyperlipidemia; resume statin therapy Continue furosemide 40 mg IV every 12 hour with spironolactone, continue nasal cannula 5 L, off empiric antibiotics with Vanco and Zosyn, procalcitonin level pending, will request respiratory therapy again for pulmonary toilet
[2024-09-12] MEDS: acetaZOLAMIDE 250 MG TAB PO SCH (20:58)
[2024-09-13] MEDS: FUROSEMIDE 40 MG/4 ML VIAL IV SCH (09:00)
[2024-09-13] MEDS: FUROSEMIDE 20 MG/ 2ML VIAL IV ONE (09:35)
[2024-09-13 12:09] LABS: Albumin 2.9 g/dL (3.4-5.0); Albumin/Globulin Ratio 0.8 (1.1-1.8); Anion Gap 3.2 mEq/L (5.0-15.0); Bilirubin Total 0.6 mg/dL (0.2-1.0); Globulin 3.6 g/dL (2.3-3.5); Potassium 3.2 mEq/L (3.5-5.1); Protein, Total 6.5 g/dL (6.4-8.2)
--- NOTE | 2024-09-13 13:11 | P.PN ---
Subjective Date of Service: 09/13/24 Chief Complaint: Respiratory failure Subjective: Improving Patient has appeared to be more alert and communicable, comfortable. The patient has no complaint except cough but unable to expectorate Review of Systems Other: Consitutional; fever(-), chills (-), rigor(-), night sweat(-), unintentional weight loss(-) HEENT; epistaxis (-), otorrhea (-), otalgia (-) Respiratory; shortness of breath (-), wheezing (-), cough (+), sputum (-), pleuritic chest pain (-) Cardiovascular; chest pain (-), peripheral edema (-), paroxysmal nocturnal dyspnea (-), orthopnea (-) Gastrointestinal; nausea (-), vomiting (-), abdominal pain (-), diarrhea (-), constipation (-), melena (-), hematochezia (-) Urinary; urinary frequency (-), dysuria (-), urgency (-), flank pain (-), gross hematuria (-) Skin; rash (-), pruritus (-) 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 General: Morbidly obese, chronic ill-looking in no apparent distress,. HEENT: Normocephalic, atraumatic,. Neck: Supple, without JVD or goiter or thyroid mass. Respiratory: Coarse breath sound bilaterally with less rhonchi, no wheezing. Cardiovascular: Regular rate and rhythm, S1, S2 normal, no murmur no gallop. Gastrointestinal: Normal bowel sounds, nondistended, nontender, No ascites, , No masses, no hepatosplenomegaly. Musculoskeletal: No clubbing, No peripheral edema. Integumentary: No rashes. Lymphatics: No axilla or cervical lymphadenopathy. Neurology; alert awake oriented x3, no focal neurologic deficit Assessment And Plan - Plan This is 79 years old female patient with multiple comorbidity status post Marnie-en-Y bypass surgery, morbid obesity, heart failure, diabetes, status post a repair of abdominal aortic aneurysm who recently admitted to the hospital for pneumonia and pleural effusion discharged to care home, returned to the hospital for worsening dyspnea and readmitted on the general medical floor #1 acute on chronic hypoxic and hypercapnic respiratory failure associated with #2, #3 and #4 #2 presumed obesity hypoventilation syndrome 3. Acute CHF exacerbation; 4 acute systolic and diastolic heart failure with left pleural effusion I will increased furosemide to 60 mg every 12 hour along with Lasix spironolactone and Diamox, continue nasal cannula 5 L with BiPAP, normal procalcitonin level, antibiotics has been discontinued. Respiratory therapy with pulmonary toilet
[2024-09-14 06:13] LABS: Absolute Eosinophils 0.3 K/uL (0-0.5); Absolute Lymphocytes (CBC) 0.6 K/uL (0.7-4.9); Absolute Monocytes 1.1 K/uL (0.1-1.3); Basophils % 0.8 % (0-1.3); Eosinophils % 4.9 % (0-4.4); Hematocrit 48.2 % (36.0-45.0); Hemoglobin 14.7 g/dL (12.0-15.0); Lymphocytes % 9.7 % (15.3-44.8); MCH 27.4 pg (27.0-35.0); MCHC 30.4 g/dL (32.0-36.0); MPV 9.9 fL (7.6-11.3); Monocytes % 18.7 % (3.3-12.3); Neutrophils % 65.9 % (41.7-73.7); Nucleated Red Blood Cells % 0.3 % (0-0); Platelets 168 thou/uL (152-406); RBC Red Blood Cell Count 5.35 M/uL (3.86-4.86); Red Cell Distribution Width 16.3 % (12.1-15.2)
[2024-09-14 06:39] LABS: Albumin 2.8 g/dL (3.4-5.0); Albumin/Globulin Ratio 0.8 (1.1-1.8); Anion Gap 4.9 mEq/L (5.0-15.0); Bilirubin Total 0.5 mg/dL (0.2-1.0); Globulin 3.3 g/dL (2.3-3.5); Potassium 2.9 mEq/L (3.5-5.1); Protein, Total 6.1 g/dL (6.4-8.2)
[2024-09-14 08:36] LABS: Anisocytosis 1+; Blood Morphology Comment NOTED (NOT SEEN); Platelet Estimate ADEQ; White Blood Cell Scan OK (OK)
[2024-09-14] MEDS: POTASSIUM CL SA 10 MEQ TAB PO SCH (10:33)
--- NOTE | 2024-09-14 11:03 | P.PN ---
Subjective Date of Service: 09/14/24 Chief Complaint: Respiratory failure Patient is improving doing well no new complaint hypokalemic Review of Systems General: Weakness Respiratory: Shortness of Breath Physical Examination - Vital Signs Temperature: 97.8 F Blood Pressure: 124/86 Pulse: 101 Respirations: 20 Pulse Ox (%): 95 - Physical Exam General: Alert, Oriented x3 Neck: Supple Respiratory: Clear to auscultation bilaterally Cardiovascular: No edema, Normal S1 S2 Other Physical/Emotional Findings: - Physical Exam. General: Morbidly obese, chronic ill-looking in no apparent distress,. HEENT: Normocephalic, atraumatic,. Neck: Supple, without JVD or goiter or thyroid mass. Respiratory: Coarse breath sound bilaterally with less rhonchi, no wheezing. Cardiovascular: Regular rate and rhythm, S1, S2 normal, no murmur no gallop. Gastrointestinal: Normal bowel sounds, nondistended, nontender, No ascites, , No masses, no hepatosplenomegaly. Musculoskeletal: No clubbing, No peripheral edema. Integumentary: No rashes. Lymphatics: No axilla or cervical lymphadenopathy. Neurology; alert awake oriented x3, no focal neurologic deficit Assessment And Plan - Current Problems (Diagnosis) (1) Respiratory failure with hypoxia and hypercapnia Current Visit: No Status: Acute Plan: Patient is doing well shortness of breath is improved hypokalemic I suspect is from the lace the IV Lasix for now increase spironolactone to twice a day continue with Diamox twice a day BiPAP at night during the day as needed titrate sat to 88 to 90% sickle therapy discharge planning stable for discharge back to the nursing Qualifiers: Chronicity: unspecified Qualified Code(s): J96.91 - Respiratory failure, unspecified with hypoxia; J96.92 - Respiratory failure, unspecified with hypercapnia
--- NOTE | 2024-09-14 11:27 | P.PN ---
Subjective Date of Service: 09/14/24 Chief Complaint: Respiratory failure The patient oxygen requirement increased to 6 L/min overnight, found to be not using BiPAP or CPAP in the past 2 days, her urine output increased to 1.2 L over the 24-hour after IV furosemide titrated up to 60 mg twice daily. Review of Systems Other: Consitutional; fever(-), chills (-), rigor(-), night sweat(-), unintentional weight loss(-) HEENT; epistaxis (-), otorrhea (-), otalgia (-) Respiratory; shortness of breath (+), wheezing (-), cough (+), sputum (+), pleuritic chest pain (-) Cardiovascular; chest pain (-), peripheral edema (-), paroxysmal nocturnal dyspnea (-), orthopnea (-) Gastrointestinal; nausea (-), vomiting (-), abdominal pain (-), diarrhea (-), constipation (-), melena (-), hematochezia (-) Urinary; urinary frequency (-), dysuria (-), urgency (-), flank pain (-), gross hematuria (-) Skin; rash (-), pruritus (-) 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 General: Morbidly obese, chronic ill-looking in no apparent distress,. HEENT: Normocephalic, atraumatic,. Neck: Supple, without JVD or goiter or thyroid mass. Respiratory: Coarse breath sound bilaterally with less rhonchi, no wheezing. Cardiovascular: Regular rate and rhythm, S1, S2 normal, no murmur no gallop. Gastrointestinal: Normal bowel sounds, nondistended, nontender, No ascites, , No masses, no hepatosplenomegaly. Musculoskeletal: No clubbing, No peripheral edema. Integumentary: No rashes. Lymphatics: No axilla or cervical lymphadenopathy. Neurology; alert awake oriented x3, no focal neurologic deficit Assessment And Plan - Plan This is 79 years old female patient with multiple comorbidity status post Marnie-en-Y bypass surgery, morbid obesity, heart failure, diabetes, status post a repair of abdominal aortic aneurysm who recently admitted to the hospital for pneumonia and pleural effusion discharged to [facility], returned to the hosp [facility] for worsening dyspnea and readmitted on the general medical floor #1 acute on chronic hypoxic and hypercapnic respiratory failure associated with #2, #3 and #4 #2 presumed obesity hypoventilation syndrome 3. Acute COPD exacerbation 4 acute systolic and diastolic heart failure with left pleural effusion Will continue to opera on on nocturnal CPAP, daily BiPAP as needed for #2, I spoke to rehabilitation nurse on the case. I will continue IV furosemide at current dose and oral spironolactone and Diamox. I will plan to discharge back to her [facility] with arrangement of BiPAP/CPAP
[2024-09-14] MEDS: ACETAMINOPHEN 500 MG TAB PO PRN (13:23)
[2024-09-14] MEDS: SPIRONOLACTONE 25 MG TABLET PO SCH (20:22)
--- NOTE | 2024-09-15 09:25 | P.PN ---
Subjective Date of Service: 09/15/24 Chief Complaint: Respiratory failure Patient is improving no new complaints shortness of breath is improved still continues to remain hypokalemia Review of Systems General: Weakness Respiratory: Shortness of Breath Physical Examination - Vital Signs Temperature: 97.3 F Blood Pressure: 134/72 Pulse: 83 Respirations: 16 Pulse Ox (%): 90 - Physical Exam General: Alert, Oriented x3 Respiratory: Clear to auscultation bilaterally Cardiovascular: No edema, Regular rate/rhythm, Normal S1 S2 Other Physical/Emotional Findings: - Physical Exam. General: Morbidly obese, chronic ill-looking in no apparent distress,. HEENT: Normocephalic, atraumatic,. Neck: Supple, without JVD or goiter or thyroid mass. Respiratory: Coarse breath sound bilaterally with less rhonchi, no wheezing. Cardiovascular: Regular rate and rhythm, S1, S2 normal, no murmur no gallop. Gastrointestinal: Normal bowel sounds, nondistended, nontender, No ascites, , No masses, no hepatosplenomegaly. Musculoskeletal: No clubbing, No peripheral edema. Integumentary: No rashes. Lymphatics: No axilla or cervical lymphadenopathy. Neurology; alert awake oriented x3, no focal neurologic deficit Assessment And Plan - Current Problems (Diagnosis) (1) Respiratory failure with hypoxia and hypercapnia Current Visit: No Status: Acute Plan: Patient has obesity hypoventilation syndrome associated with hypokalemia add p.o. potassium charge planning needs to be set up with home BiPAP or noninvasive ventilator patient is compliant with BiPAP Qualifiers: Chronicity: unspecified Qualified Code(s): J96.91 - Respiratory failure, unspecified with hypoxia; J96.92 - Respiratory failure, unspecified with hypercapnia
[2024-09-15] MEDS: POTASSIUM 25 MEQ EFFERV TAB PO SCH (10:01)
[2024-09-15] MEDS: POTASSIUM CL SA 10 MEQ TAB PO ONE (13:55)
--- NOTE | 2024-09-15 15:56 | P.PN ---
Subjective Date of Service: 09/15/24 Chief Complaint: Respiratory failure Subjective: No new changes She is using BiPAP at in her bed, denied any shortness of breath or chest pain but productive cough, still having hard time coughing up the phlegm. Review of Systems Other: Consitutional; fever(-), chills (-), rigor(-), night sweat(-), unintentional weight loss(-) HEENT; epistaxis (-), otorrhea (-), otalgia (-) Respiratory; shortness of breath (+), wheezing (-), cough (+), sputum (+), pleuritic chest pain (-) Cardiovascular; chest pain (-), peripheral edema (-), paroxysmal nocturnal dyspnea (-), orthopnea (-) Gastrointestinal; nausea (-), vomiting (-), abdominal pain (-), diarrhea (-), constipation (-), melena (-), hematochezia (-) Urinary; urinary frequency (-), dysuria (-), urgency (-), flank pain (-), gross hematuria (-) Skin; rash (-), pruritus (-) 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 General: Morbidly obese, chronic ill-looking in no apparent distress,. HEENT: Normocephalic, atraumatic,. Neck: Supple, without JVD or goiter or thyroid mass. Respiratory: Clear breath sound bilaterally with less rhonchi, no wheezing. Cardiovascular: Regular rate and rhythm, S1, S2 normal, no murmur no gallop. Gastrointestinal: Normal bowel sounds, nondistended, nontender, No ascites, , No masses, no hepatosplenomegaly. Musculoskeletal: No clubbing, No peripheral edema. Integumentary: No rashes. Lymphatics: No axilla or cervical lymphadenopathy. Neurology; alert awake oriented x3, no focal neurologic deficit Assessment And Plan - Plan This is 79 years old female patient with multiple comorbidity status post Marnie-en-Y bypass surgery, morbid obesity, heart failure, diabetes, status post a repair of abdominal aortic aneurysm who recently admitted to the hospital for pneumonia and pleural effusion discharged to halfway, returned to the hospital for worsening dyspnea and readmitted on the general medical floor #1 acute on chronic hypoxic and hypercapnic respiratory failure associated with #2, #3 and #4 #2 presumed obesity hypoventilation syndrome 3. Acute COPD exacerbation 4 acute systolic and diastolic heart failure with left pleural effusion Will continue on nocturnal CPAP, daily BiPAP as needed for #2 and oral spironolactone and Diamox. IV furosemide discontinued, she is ready for transfer back to her halfway once her halfway has been set up for her BiPAP/CPAP
[2024-09-16 06:40] LABS: Anion Gap 6.7 mEq/L (5.0-15.0); Potassium 3.7 mEq/L (3.5-5.1)
--- NOTE | 2024-09-16 16:30 | P.PN ---
Date of Service: 09/16/24 Subjective Physical Examination - Vital Signs Reviewed - Physical Exam General: Alert, In no apparent distress, Oriented x3 Respiratory: Diminished, Expiratory wheezes Cardiovascular: Regular rate/rhythm, Normal S1 S2, Systolic murmur Gastrointestinal: Normal bowel sounds, Soft and benign, Non-distended, No tenderness Musculoskeletal: No clubbing, No tenderness, Swelling Integumentary: No rashes Neurological: Normal speech, Normal tone, Sensation intact, Cranial nerves 3-12 intact, Normal affect, Abnormal gait, Abnormal strength Assessment & Plan - Problems (Diagnosis) (1) Acute on chronic diastolic heart failure Current Visit: No Status: Acute (2) HTN (hypertension) Current Visit: No Status: Acute (3) NSTEMI (non-ST elevated myocardial infarction) Current Visit: No Status: Acute (4) Respiratory failure with hypoxia and hypercapnia Current Visit: No Status: Acute Qualifiers: Chronicity: unspecified Qualified Code(s): J96.91 - Respiratory failure, unspecified with hypoxia; J96.92 - Respiratory failure, unspecified with hypercapnia - Plan 1. Acute CHF exacerbation; acute systolic and diastolic dysfunction; continue with diuresing patient. Review echocardiogram. Cardiology consulted 2. History of hypertension; resume antihypertensives 3. Hyperlipidemia; resume statin therapy 4. Pleural effusion; diurese patient. Consult pulmonology 5. GI DVT prophylaxis Discharge Plan: Home Plan to discharge in: Greater than 2 days - Advance Directives Does patient have a Living Will: Yes Does patient have a Durable POA for Healthcare: No - Code Status/Comfort Care Code Status Assessed: Yes Code Status: Full Code Critical Care: No Time Spent Managing PTS Care (In Minutes): 35
[2024-09-16] MEDS: NYSTATIN PWDR 100000 UNIT/GM TOP SCH (20:34)
[2024-09-17 08:37] LABS: Anion Gap 6.4 mEq/L (5.0-15.0); Potassium 4.4 mEq/L (3.5-5.1)
[2024-09-17] MEDS: METHYLPREDNISOLONE 125 MG INJ IV ONE (11:16)
[2024-09-17] MEDS: FUROSEMIDE 20 MG/ 2ML VIAL IV ONE (11:16)
[2024-09-17] MEDS: ALBUMIN HUMAN 25% 100 ML IV ONE (11:19)
--- NOTE | 2024-09-17 13:22 | RAD REPORT ---
Procedure: Chest Single View HISTORY: Chest pain COMPARISON: September 10, 2024 FINDINGS: Left base remains hazy. Remainder lungs appear clear of acute infiltrate. Pacemaker leads in place. The heart is normal size. IMPRESSION: Left base remains hazy which may secondary to a pneumonia
[2024-09-18 12:28] VITALS: BP 113/55; TEMP 97.7
--- NOTE | 2024-09-18 13:42 | P.PN ---
Subjective Date of Service: 09/18/24 Chief Complaint: Respiratory failure Patient is doing well no complaints on BiPAP Review of Systems Unremarkable Physical Examination - Vital Signs Temperature: 97.7 F Blood Pressure: 113/55 Pulse: 97 Respirations: 16 Pulse Ox (%): 91 - Physical Exam General: Alert, In no apparent distress, Oriented x3 Respiratory: Clear to auscultation bilaterally, Diminished Cardiovascular: No edema Other Physical/Emotional Findings: - Physical Exam. General: Morbidly obese, chronic ill-looking in no apparent distress,. HEENT: Normocephalic, atraumatic,. Neck: Supple, without JVD or goiter or thyroid mass. Respiratory: Clear breath sound bilaterally with less rhonchi, no wheezing. Cardiovascular: Regular rate and rhythm, S1, S2 normal, no murmur no gallop. Gastrointestinal: Normal bowel sounds, nondistended, nontender, No ascites, , No masses, no hepatosplenomegaly. Musculoskeletal: No clubbing, No peripheral edema. Integumentary: No rashes. Lymphatics: No axilla or cervical lymphadenopathy. Neurology; alert awake oriented x3, no focal neurologic deficit Assessment And Plan - Current Problems (Diagnosis) (1) Respiratory failure with hypoxia and hypercapnia Current Visit: No Status: Acute Plan: Patient has chronic hypoxic hypercapnic respiratory failure is doing well continue with spironolactone and Diamox signs oxygenation satisfactory titrate sat to 90% chemistries all reviewed stable for discharge Qualifiers: Chronicity: unspecified Qualified Code(s): J96.91 - Respiratory failure, unspecified with hypoxia; J96.92 - Respiratory failure, unspecified with hyperc apnia
[2024-09-18 14:02] VITALS: O2SAT 99
== END 2024-09-18 16:46 | DRG 280 ==
LOC: ER 12:57 → ERHOLD 17:09 → 4TH 17:45
PROVIDERS: ADMIT Hospitalist; ATTEND Hospitalist
PROC: 4A033R1 Measurement of Arterial Saturation, Peripheral, Percutaneous Approach (ICD-10-PCS; principal; 2024-09-10)
PROC: 5A09557 Assistance with Respiratory Ventilation, Greater than 96 Consecutive Hours, Continuous Positive Airway Pressure (ICD-10-PCS; 2024-09-10)
DX: I11.0 Hypertensive heart disease with heart failure (principal); I50.43 Acute on chronic combined systolic (congestive) and diastolic (congestive) heart failure; I21.4 Non-ST elevation (NSTEMI) myocardial infarction; J96.21 Acute and chronic respiratory failure with hypoxia; J96.22 Acute and chronic respiratory failure with hypercapnia; Z68.42 Body mass index [BMI] 45.0-49.9, adult; E66.2 Morbid (severe) obesity with alveolar hypoventilation; J44.1 Chronic obstructive pulmonary disease with (acute) exacerbation; E03.9 Hypothyroidism, unspecified; E87.6 Hypokalemia; E78.5 Hyperlipidemia, unspecified; E11.9 Type 2 diabetes mellitus without complications; K21.9 Gastro-esophageal reflux disease without esophagitis; Z88.5 Allergy status to narcotic agent; Z95.0 Presence of cardiac pacemaker; Z88.1 Allergy status to other antibiotic agents; Z95.1 Presence of aortocoronary bypass graft; Z88.8 Allergy status to other drugs, medicaments and biological substances; Z79.82 Long term (current) use of aspirin; Z79.890 Hormone replacement therapy; Z79.899 Other long term (current) drug therapy; Z87.891 Personal history of nicotine dependence
CPT/HCPCS: 31720; 36415; 36600; 71045; 80048; 80053; 80202; 82805; 82947; 83880; 84132; 84145; 84484; 85025; 93005; 94640; 94660; 94668; 94760; 96374; 97110; 97116; 97163; 97530; 99285; J1940; J2543; J2919; J7040; J7613; J7644; P9047

== ENCOUNTER 2024-10-05 11:29 | Emergency (ER) | payer OTHER ==
--- NOTE | 2024-10-05 12:56 | ER ---
Nurse's Notes [facility] Name: Clare Oleary Age: 79 yrs Sex: Female : 1945 Arrival Date: 10/05/2024 Time: 11:29 Bed 15 Private MD: Diagnosis: Weakness Presentation: 10/05 11:26 Chief complaint: EMS states: EMS CALLED TO REHAB DUE TO PATIENT WAS DISCHARGED AND db LEAVING AND FAMILY NEEDED ASSISTANCE GETTING PATIENT INTO THE CAR. UPON EMS ARRIVAL PT FAMILY WANTED EMS TO BRING PT HOME BUT EMS COULD NOT SINCE EMS DID NOT BRING PT HOME REQUESTED PT TO GO TO ER DUE TO NOT COMFORTABLE TAKING PT HOME. PT USES HOME O2. Coronavirus screen: Client denies travel out of the [place] in the last 14 days. At this time, the client does not indicate any symptoms associated with coronavirus-19. Ebola Screen: Patient negative for fever greater than or equal to 101.5 degrees Fahrenheit, and additional compatible Ebola Virus Disease symptoms Patient denies exposure to infectious person. Patient denies travel to an Ebola-affected area in the 21 days before illness onset. No symptoms or risks identified at this time. Initial Sepsis Screen: Does the patient meet any 2 criteria? No. Patient's initial sepsis screen is negative. Does the patient have a suspected source of infection? No. Patient's initial sepsis screen is negative. Risk Assessment: Do you want to hurt yourself or someone else? Patient reports no desire to harm self or others. Onset of symptoms was October 05, 2024. 11:26 Method Of Arrival: EMS: [facility] db 11:26 Acuity: JUNE 3 db Triage Assessment: 11:36 General: Appears in no apparent distress. comfortable, Behavior is calm, cooperative. db Pain: Denies pain. Neuro: Level of Consciousness is awake, alert, obeys commands, Oriented to person, place, time, situation. Respiratory: Airway is patent Respiratory effort is even, unlabored, Respiratory pattern is regular, symmetrical. Historical: - Allergies: 11:36 Codeine; db 11:36 hydrochlorothiazide; db 11:36 maxide; db 11:36 Triamterene; db - PMHx: 11:36 Congestive heart failure; diabetes mellitus; Gastroesophageal reflux disease; db Hyperlipidemia (Unknown); Hypertensive disorder; Hypothyroidism; - PSHx: 11:36 Coronary Angioplasty; Coronary artery bypass graft; pacemaker; db - Immunization history:: Adult Immunizations unknown. - Infectious Disease History:: Denies. - Social history:: Smoking status: Patient denies any tobacco usage or history of. Screenin:55 [facility] ED Fall Risk Assessment (Adult) History of falling in the last 3 months, cm10 including since admission No falls in past 3 months (0 pts) Confusion or Disorientation No (0 pts) Intoxicated or Sedated No (0 pts) Impaired Gait Yes (1 pt) Mobility Assist Device Used Yes (1 pt) Altered Elimination No (0 pt) Score/Fall Risk Level 0 - 2 = Low Risk Oriented to surroundings, Maintained a safe environment, Hourly rounding (assess needs \T\ fall precautionary measures) done. Abuse screen: Denies threats or abuse. Denies injuries from another. Nutritional screening: No deficits noted. Tuberculosis screening: No symptoms or risk factors identified. Assessment: 11:56 General: Appears in no apparent distress. comfortable, Behavior is calm, cooperative. cm10 Neuro: No deficits noted. Level of Consciousness is awake, alert, obeys commands, Oriented to person, place, time, situation, Appropriate for age. Respiratory: No deficits noted. Airway is patent Respiratory effort is even, unlabored, Respiratory pattern is regular, symmetrical, Breath sounds are clear bilaterally. Vital Signs: 11:26 BP 162 / 93; Pulse 102; Resp 20; Temp 98.2(O); Pulse Ox 93% 3 lpm ; Weight 116 kg; db Height 5 ft. 0 in. ; 14:30 BP 151 / 89; Pulse 101; Resp 19; Pulse Ox 93% on 2 lpm NC; cm10 11:26 Body Mass Index 49.94 (116.00 kg, 152.4 cm) db ED Course: 11:30 Patient arrived in ED. em1 11:36 Triage completed. db 11:36 Arm band placed on Patient placed in an exam room. db 11:47 Angi Tellez, RN is Primary Nurse. cm10 11:55 Patient has correct armband on for positive identification. Bed in low position. Call cm10 light in reach. Side rails up X2. Provided Education on: ER process and procedures.. Pulse ox on. NIBP on. 12:19 Jason Handley MD is Attending Physician. bo1 14:48 No provider procedures requiring assistance completed. Patient did not have IV access cm10 during this emergency room visit. Administered Medications: No medications were administered Medication: 11:55 VIS not applicable for this client. cm10 Outcome: 12:55 Discharge ordered by . bo1 14:48 Patient left the ED. ll1 14:48 Discharged to home via ambulance, cm10 14:48 Condition: good 14:48 Discharge instructions given to patient, family, Instructed on discharge instructions, follow up and referral plans. Signatures: Jm Tellez em1 Norm Garcia, NOHEMI RN 1 Summer Espino, RN RN Angi Tellez RN RN cm10 Jason Handley MD MD [facility]
--- NOTE | 2024-10-05 12:56 | EDPHYS ---
Physician Documentation [facility] Name: Clare Oleary Age: 79 yrs Sex: Female : 1945 Arrival Date: 10/05/2024 Time: 11:29 Bed 15 Private MD: ED Physician Jason Handley HPI: 10/05 12:48 This 79 yrs old Female presents to ER via EMS with complaints of Check-up. bo1 12:48 Pt has elected to be discharged from [facility] ER to home. Grand-daughter here could not bo1 lift pt from the WC to the car. So EMS was called.. Onset: The symptoms/episode began/occurred just prior to arrival. Pt has elected to be placed at home... son's with grand-daughter to help take care. Hospital medical bed, oxygen, bed-side commode etc is at home already. PCP is aware. Arrangements have been previously made. Historical: - Allergies: 11:36 Codeine; db 11:36 hydrochlorothiazide; db 11:36 maxide; db 11:36 Triamterene; db - PMHx: 11:36 Congestive heart failure; diabetes mellitus; Gastroesophageal reflux disease; db Hyperlipidemia (Unknown); Hypertensive disorder; Hypothyroidism; - PSHx: 11:36 Coronary Angioplasty; Coronary artery bypass graft; pacemaker; db - Immunization history:: Adult Immunizations unknown. - Infectious Disease History:: Denies. - Social history:: Smoking status: Patient denies any tobacco usage or history of. ROS: 12:51 Constitutional: Negative for fever, chills, and weight loss bo1 12:51 Cardiovascular: Negative for chest pain, 12:51 Respiratory: Negative for cough, shortness of breath, 12:51 Abdomen/GI: Negative for abdominal pain, nausea and vomiting, 12:51 MS/extremity: Negative for pain, 12:51 Neuro: Negative for altered mental status, 12:51 All other systems are negative, Exam: 12:51 Constitutional: This is a well developed, well nourished patient who is awake, alert, bo1 and in no acute distress. 12:51 Cardiovascular: Rate: normal, Rhythm: regular, Pulses: no pulse deficits are appreciated, 12:51 Respiratory: the patient does not display signs of respiratory distress, Respirations: normal, Breath sounds: are clear throughout, On 3 litres NC at 94% oxygen sat, 12:51 Abdomen/GI: Inspection: abdomen appears normal, Palpation: abdomen is soft and non-tender, 12:51 Skin: Exam negative for acute changes, 12:51 Neuro: Exam negative for acute changes, Orientation: is normal, appropriate for stated age, Mentation: is normal, appropriate for stated age, Vital Signs: 11:26 BP 162 / 93; Pulse 102; Resp 20; Temp 98.2(O); Pulse Ox 93% 3 lpm ; Weight 116 kg; db Height 5 ft. 0 in. ; 14:30 BP 151 / 89; Pulse 101; Resp 19; Pulse Ox 93% on 2 lpm NC; cm10 11:26 Body Mass Index 49.94 (116.00 kg, 152.4 cm) db MDM: 12:20 Medical Screening Exam initiated bo1 12:53 Differential Diagnosis Transport and lifting assist needed. Data reviewed: vital signs. bo1 ED course: No acute complaints or interventions needed. Administered Medications: No medications were administered Disposition Summary: 10/05/24 12:55 Discharge Ordered Notes: Location: Home bo1 Problem: chronic bo1 Condition: Stable bo1 Diagnosis - Weakness bo1 Followup: bo1 - With: Private Physician - When: Upon discharge from the Emergency Department - Reason: Continuance of care Discharge Instructions: - Discharge Summary Sheet bo1 - Weakness, [id number] bo1 Forms: - Medication Reconciliation Form bo1 - Antibiotic Education bo1 - Prescription Opioid Use bo1 - Patient Portal Instructions bo1 - Leadership Thank You Letter bo1 Signatures: Summer Espino RN NOHEMI db OeiJason MD MD bo1
[2024-10-05 15:19] VITALS: BP 151/89; O2SAT 93
== END 2024-10-05 14:48 | disposition home or self-care (01) ==
LOC: ER 11:29
DX: R53.1 Weakness (principal); I10 Essential (primary) hypertension; I50.9 Heart failure, unspecified; Z95.1 Presence of aortocoronary bypass graft; Z95.0 Presence of cardiac pacemaker
CPT/HCPCS: 99283

== ENCOUNTER 2024-10-08 11:55 | Inpatient (IN) | payer OTHER ==
--- NOTE | 2024-10-08 12:28 | RAD REPORT ---
EXAM: CT brain without contrast HISTORY: STROKE ALERT COMPARISON: None TECHNIQUE: Multiple contiguous axial images were obtained and a CT of the brain without contrast. Sag ittal and coronal reformats were performed. One or more of the following dose reduction techniques were used: Automated exposure control, adjust ment of the mA and/or kV according to patient size, and/or iterative reconstruction. FINDINGS: No evidence of hydrocephalus, intracranial hemorrhage, or extra-axial fluid collection. 18 mm area of diminished density is seen in the left centrum semiovale white matter which could richard robert a subacute area of ischemia. No evidence of midline shift or areas of brain edema. The calvarium is intact. The visualized paranasal sinuses and mastoid air cells are essentially clear . IMPRESSION: No hemorrhage, hydrocephalus or midline shift. 18 mm area of diminished density left centrum semiovale white matter could be related to subacute isc hemia. The findings were communicated with Nas Conde at 10/08/2024 12:25 PM by telephone.
--- NOTE | 2024-10-08 12:35 | RAD REPORT ---
EXAMINATION: CTA HEAD CLINICAL INDICATION: Right sided facial droop TECHNIQUE: Axial CT images were obtained through the head after intravenous contrast utilizing angiog raphic protocol with 3D post-processing (maximum intensity projection images, volume rendered images and/or shaded surface rendered images). One or more of the following dose reduction technique s were used: Automated exposure control, adjustment of the mA and/or kV according to patient size, and/or iterative reconstruction. Unless otherwise specified, incidental findings do not require dedic ated imaging follow-up. COMPARISON: CT head 10/08/2024 FINDINGS: ICA: The petrous, cavernous, and supraclinoid segments of the bilateral internal carotid arteries are normal. The ophthalmic artery origins are visualized and normal. The posterior communicating arteries are patent. KOURTNEY: Anterior cerebral arteries are normal bilaterally. The anterior communicating artery is patent. MCA: Middle cerebral arteries are normal bilaterally. TEENAGE BABYSITTER: Posterior cerebral arteries are normal bilaterally. Vertebrobasilar: The vertebral arteries are patent. The basilar artery is normal in appearance. 3D images confirm these findings. IMPRESSION: No significant flow abnormality is identified.
--- NOTE | 2024-10-08 12:41 | RAD REPORT ---
EXAMINATION: CTA NECK CLINICAL INDICATION: right sided facial droop TECHNIQUE: Axial CT images were obtained from the aortic arch to the skull base after intravenous con trast utilizing angiographic protocol with 3D post-processing (maximum intensity projection images, volume rendered images and/or shaded surface rendered images). One or more of the following dose redu ction techniques were used: Automated exposure control, adjustment of the mA and/or kV according to patient size, and/or iterative reconstruction. Unless otherwise specified, incidental findings do not require dedicated imaging follow-up. COMPARISON: No prior exam. FINDINGS: AORTA: Stent is present in the aortic arch. CCA: The common carotid arteries are patent and normal in caliber. ICA/ECA: Moderate hard plaque is seen involving both carotid bulbs, more significant on the right whe re stenosis is estimated at 80-90 %. Left-sided stenosis also caused by hard plaque estimated at 70-80%. VERTEBRAL: The cervical vertebral arteries are patent. The vertebral arteries are codominant. SOFT TISSUE: No significant neck soft tissue abnormalities. A right pleural effusion is present. 3D images confirm these findings. 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 NASCET criteria used. Mild 0-49% stenosis Moderate 50-69% stenosis Severe 70-99% stenosis
[2024-10-08 12:43] LABS: Absolute Eosinophils 0.1 K/uL (0-0.5); Absolute Lymphocytes (CBC) 0.6 K/uL (0.7-4.9); Absolute Monocytes 0.9 K/uL (0.1-1.3); Absolute Neutrophil 6.1 K/uL (1.8-8.0); Basophils % 0.2 % (0-1.3); Eosinophils % 1.1 % (0-4.4); Hematocrit 53.1 % (36.0-45.0); Lymphocytes % 7.9 % (15.3-44.8); MCH 27.4 pg (27.0-35.0); MCHC 28.2 g/dL (32.0-36.0); MCV 97.1 fL (80-100); MPV 9.9 fL (7.6-11.3); Monocytes % 11.9 % (3.3-12.3); Neutrophils % 78.9 % (41.7-73.7); Nucleated Red Blood Cells % 0.1 % (0-0); Platelets 165 thou/uL (152-406); RBC Red Blood Cell Count 5.47 M/uL (3.86-4.86); Red Cell Distribution Width 18.5 % (12.1-15.2)
[2024-10-08 12:50] LABS: PT Prothrombin Time 11.9 SECONDS (9.4-12.5); PTT, Activated Partial Thromb 31.2 SECONDS (24.3-36.9); Protime INR 1.06
[2024-10-08 13:02] LABS: Anion Gap 6.7 mEq/L (5.0-15.0); Potassium 4.7 mEq/L (3.5-5.1); Troponin High Sensitivity 39.7 pg/mL (<58.9)
--- NOTE | 2024-10-08 13:50 | EDPHYS ---
Physician Documentation [facility] Name: Clare Oleary Age: 79 yrs Sex: Female : 1945 Arrival Date: 10/08/2024 Time: 11:55 Bed 4 Private MD: ED Physician Nas Conde HPI: 10/08 12:04 This 79 yrs old Female presents to ER via Unassigned with complaints of Altered Mental ms3 Status. 12:04 Clare Oleary is brought to the Emergency Department after being found unresponsive at [facility]. She was previously discharged from a [facility] on Monday. Approximately 30 minutes after her release, her oxygen saturation dropped to 70% and she was seen in the ED. The family last saw her on Monday morning, and she was discovered two days later, covered in feces, extremely pale, cool to the touch, and lying in bed in a dark room. Upon EMS arrival, she exhibited severe right-sided facial drooping, which was new, with a Leticia Coma Scale (GCS) of 12. Her condition has improved slightly, with a current GCS of 14; she shows some confusion but follows instructions. She has a history of CVA and transient ischemic attacks (TIAs). She was found with an initial oxygen saturation of 76% and is not on her prescribed BiPAP contributing to her hypoxic state. Initial glucose level was 119, and she is currently on supplemental oxygen.. Historical: - Allergies: 12:30 Codeine; ko1 12:30 hydrochlorothiazide; ko1 12:30 maxide; ko1 12:30 Triamterene; ko1 - PMHx: 12:30 Congestive heart failure; diabetes mellitus; Gastroesophageal reflux disease; ko1 Hyperlipidemia (Unknown); Hypertensive disorder; Hypothyroidism; - PSHx: 12:30 Coronary Angioplasty; pacemaker; Coronary artery bypass graft; ko1 - Immunization history:: Adult Immunizations unknown. - Infectious Disease History:: Denies. - Social history:: Smoking status: unknown. ROS: 12:04 Unable to obtain ROS due to altered mental status, ms3 Exam: 12:04 Head/Face: Normocephalic, atraumatic. Neck: Trachea midline, no cervical ms3 lymphadenopathy. Supple, full range of motion without nuchal rigidity, or vertebral point tenderness. No Meningismus. Chest/axilla: Normal chest wall appearance and motion. Nontender with no deformity. Cardiovascular: Regular rate and rhythm with a normal S1 and S2. No gallops, murmurs, or rubs. Normal PMI, no JVD. No pulse deficits. Respiratory: Lungs have equal breath sounds bilaterally, clear to auscultation and percussion. No rales, rhonchi or wheezes noted. No increased work of breathing, no retractions or nasal flaring. Abdomen/GI: Soft, non-tender, with normal bowel sounds. No distension or tympany. No guarding or rebound. No evidence of tenderness throughout. 12:04 Constitutional: The patient appears alert, awake, non-diaphoretic, non-toxic, obese, 12:04 Neuro: Motor: Equal strength upper extremities. Not moving lower extremities, 15:56 ECG was reviewed by the Attending Physician. ms3 Vital Signs: 14:05 BP 128 / 88; Pulse 70; Resp 16; Pulse Ox 96% on 5 lpm NC; ko1 15:02 BP 133 / 65; Pulse 89; Resp 19; Pulse Ox 95% on 5 lpm NC; ko1 MDM: 12:01 Medical Screening Exam initiated ms3 12:08 Differential Diagnosis: CVA, electrolyte abnormality, UTI, volume depletion. ms3 12:19 ED course: Patient's family wishes for patient to be DNR at this time. ms3 13:52 Data reviewed: vital signs, nurses notes, lab test result(s), EKG, radiologic studies, ms3 and as a result, I will. 14:57 Consideration of Admission/Observation Patient was admitted/placed on observation. ms3 Management of patient was discussed with the following: Hospitalist: Dr Michael and GAURI Reyes. Historians other than the Patient: EMS: [facility]. Counseling: I had a detailed discussion with the patient and/or guardian regarding the historical points, exam findings, and any diagnostic results supporting the discharge/admit diagnosis, lab results, radiology results, the need for further work-up and treatment in the hospital. ED course: With improvement in mental status while in the emergency department. Patient transition from nonrebreather to nasal cannula in the emergency department.. 10/08 12:03 Order name: Basic Metabolic Panel; Complete Time: 13:04 ms3 10/08 12:03 Order name: CBC with Diff; Complete Time: 12:53 ms3 12/17 12:03 Order name: High Sensitivity Troponin; Complete Time: 13:04 ms3 10/08 12:03 Order name: Protime (+inr); Complete Time: 12:53 ms3 10/08 12:03 Order name: Ptt, Activated; Complete Time: 12:53 ms3 10/08 12:03 Order name: CT Head Angio; Complete Time: 12:53 ms3 10/08 12:03 Order name: CT Neck Angio; Complete Time: 12:53 ms3 10/08 12:03 Order name: CT Stroke Brain w/o Contrast; Complete Time: 12:53 ms3 10/08 12:03 Order name: Stroke CXR 1 View; Complete Time: 14:03 ms3 10/08 12:03 Order name: Accucheck; Complete Time: 12:36 ms3 10/08 12:03 Order name: Cardiac monitoring; Complete Time: 12:14 ms3 10/08 12:03 Order name: EKG - Nurse/Tech; Complete Time: 12:58 ms3 10/08 12:03 Order name: IV Saline Lock; Complete Time: 12:14 ms3 10/08 12:03 Order name: Labs collected and sent; Complete Time: 12:36 ms3 10/08 12:03 Order name: NPO; Complete Time: 12:14 ms3 10/08 12:03 Order name: O2 Per Protocol; Complete Time: 12:14 ms3 10/08 12:03 Order name: O2 Sat Monitoring; Complete Time: 12:14 ms3 10/08 12:03 Order name: Stroke Swallow Screen; Complete Time: 14:39 ms3 EC:56 Rate is 98 beats/min. Rhythm is regular. QRS interval is prolonged. Clinical ms3 impression: Paced. Interpreted by me. Reviewed by me. Administered Medications: No medications were administered Disposition: 14:59 Chart complete. ms3 Disposition Summary: 10/08/24 13:49 Hospitalization Ordered Notes: Hospitalization Status: Inpatient Admission ms3 Provider: Macario Michael ms3 Location: Telemetry/MedSurg (Inpatient) ms3 Condition: Stable ms3 Problem: new ms3 Symptoms: are unchanged ms3 Bed/Room Type: Standard ms3 Room Assignment: 221(10/08/24 15:13) kb3 Diagnosis - Altered mental status, unspecified ms3 - Ischemic stroke ms3 - Chronic kidney disease, unspecified ms3 Forms: - Medication Reconciliation Form ms3 - SBAR form ms3 - Leadership Thank You Letter ms3 Signatures: Dispatcher [employer] EDMS CondeNas, DO ms3 Jillian Merchant, RN RN kb3 Sally Huffman, RN RN ko1 Corrections: (The following items were deleted from the chart) 12:04 12:04 BASIC METABOLIC PANEL+C.LAB.BRZ ordered. EDMS EDMS 12:04 12:04 CBC+H.LAB.BRZ ordered. EDMS EDMS 12:04 12:04 Troponin High Sensitivity+C.LAB.BRZ ordered. EDMS EDMS 12:04 12:04 PROTIME (+INR)+COAG.LAB.BRZ ordered. EDMS EDMS 12:04 12:04 PTT, ACTIVATED+COAG.LAB.BRZ ordered. EDMS EDMS 12:04 12:04 Head Angio+CT.RAD.BRZ ordered. EDMS EDMS 12:04 12:04 Neck Angio+CT.RAD.BRZ ordered. EDMS EDMS 12:04 12:04 CT-STROKE BRAIN W/O CONTRAST+CT.RAD.BRZ ordered. EDMS EDMS 12:04 12:04 Chest Single View+RAD.RAD.BRZ ordered. EDMS EDMS 15:13 13:49 ms3 kb3
--- NOTE | 2024-10-08 13:50 | ER ---
Nurse's Notes [facility] Name: Clare Oleary Age: 79 yrs Sex: Female : 1945 Arrival Date: 10/08/2024 Time: 11:55 Bed 4 Private MD: Diagnosis: Altered mental status, unspecified;Ischemic stroke;Chronic kidney disease, unspecified Presentation: 10/08 12:00 Chief complaint: EMS states: called for unresponsive patient by family, patient was ko1 responsive upon EMS arrival, appears confused but awake and cooperative. Coronavirus screen: At this time, the client does not indicate any symptoms associated with coronavirus-19. Ebola Screen: No symptoms or risks identified at this time. Initial Sepsis Screen: Does the patient meet any 2 criteria? No. Patient's initial sepsis screen is negative. Does the patient have a suspected source of infection? No. Patient's initial sepsis screen is negative. Risk Assessment: Do you want to hurt yourself or someone else? Patient reports no desire to harm self or others. Onset of symptoms is unknown. Care prior to arrival: IV initiated. 22 GA, in the right hand, Glucose check: 119 Oxygen administered. via nasal cannula. 12:00 Method Of Arrival: EMS: [facility] ko1 12:00 Acuity: JUNE 3 ko1 Triage Assessment: 12:30 General: Appears obese, unkempt, Behavior is cooperative. Pain: Denies pain. EENT: No ko1 deficits noted. No signs and/or symptoms were reported regarding the EENT system. Neuro: Richter Agitation-Sedation Scale (RASS): 0 - Alert and Calm Level of Consciousness is awake, alert, confused, Oriented to person, place. Cardiovascular: No deficits noted. Respiratory: No deficits noted. GI: Stools are reported to be diarrhea. incontinent. : No deficits noted. No signs and/or symptoms were reported regarding the genitourinary system. Derm: Bruising that is on scattered. Musculoskeletal: No deficits noted. Historical: - Allergies: 12:30 Codeine; ko1 12:30 hydrochlorothiazide; ko1 12:30 maxide; ko1 12:30 Triamterene; ko1 - PMHx: 12:30 Congestive heart failure; diabetes mellitus; Gastroesophageal reflux disease; ko1 Hyperlipidemia (Unknown); Hypertensive disorder; Hypothyroidism; - PSHx: 12:30 Coronary Angioplasty; pacemaker; Coronary artery bypass graft; ko1 - Immunization history:: Adult Immunizations unknown. - Infectious Disease History:: Denies. - Social history:: Smoking status: unknown. Screenin:05 [facility] ED Fall Risk Assessment (Adult) History of falling in the last 3 months, ko1 including since admission No falls in past 3 months (0 pts) Confusion or Disorientation Yes (5 pts) Intoxicated or Sedated No (0 pts) Impaired Gait Yes (1 pt) Mobility Assist Device Used Yes (1 pt) Altered Elimination Yes (1 pt) Score/Fall Risk Level 3 or more points = High Risk Oriented to surroundings, Maintained a safe environment, Educated pt \T\ family on fall prevention, incl call for assistance when getting out of bed, Assessed \T\ reinforced patient's understanding of fall precautions, Provided non-skid footwear, Hourly rounding (assess needs \T\ fall precautionary measures) done, Used ambulatory aids as needed (educated on \T\ assisted with), Used gait belt as appropriate Implemented a Fall Risk Plan of Care, Apply high fall risk patient identification: yellow non skid footwear/ fall signage, Activated bed/chair alarm, Remained w/in arm's length of patient and in sight while toileting, Offered frequent toileting (1:1 observation), Remained with patient while ambulating, Utilized family, sitter, or virtual hand bander as indicated. Abuse screen: Denies threats or abuse. Denies injuries from another. Nutritional screening: No deficits noted. Tuberculosis screening: No symptoms or risk factors identified. 14:39 [place] Swallow Protocol Exclusion Criteria: Exclusion Criteria Result: Proceed Brief ko1 Cognitive Screen What is your name? Normal, Where are you right now? Abnormal What year is it? Abnormal Oral Mechanism Examination Facial Symmetry: Normal, Oral Mechanism Result: Normal. 3 oz Water Swallow Challenge: Pt able to drink all water without stopping, coughing, choking or throat clearing: Yes Result: PASS. Assessment: 14:09 Reassessment: see triage. ko1 Vital Signs: 14:05 BP 128 / 88; Pulse 70; Resp 16; Pulse Ox 96% on 5 lpm NC; ko1 15:02 BP 133 / 65; Pulse 89; Resp 19; Pulse Ox 95% on 5 lpm NC; ko1 ED Course: 12:00 Patient arrived in ED. ko1 12:01 Nas Conde DO is Attending Physician. ms3 12:11 Sally Huffman, RN is Primary Nurse. ko1 12:15 Lab(s) recollected, by me, sent to lab. EKG done, by ED staff, reviewed by Nas king DO. Inserted saline lock: 20 gauge in right antecubital area, using aseptic technique. Blood collected. Flushed with 10 mL NS. 12:23 CT Stroke Brain w/o Contrast In Process Unspecified. EDMS 12:30 CT Head Angio In Process Unspecified. EDMS 12:30 Triage completed. ko1 12:30 Arm band placed on right wrist. Patient placed in an exam room, on a stretcher, on ko1 cardiac care unit nurse, on pulse oximetry, Patient notified of wait time. 12:31 CT Neck Angio In Process Unspecified. EDMS 12:36 Basic Metabolic Panel Sent. ko1 12:36 CBC with Diff Sent. ko1 12:36 High Sensitivity Troponin Sent. ko1 12:36 Protime (+inr) Sent. ko1 12:36 Ptt, Activated Sent. ko1 12:58 Repositioned patient. Cleaned of incontinence. Linen changed. kc6 13:39 Stroke CXR 1 View In Process Unspecified. EDMS 13:49 Macario Michael MD is Hospitalizing Provider. ms3 14:05 Patient has correct armband on for positive identification. Allergy band placed. Fall ko1 risk band placed. Placed in gown. Bed in low position. Call light in reach. Side rails up X2. Provided Education on: labs. Client placed on continuous cardiac and pulse oximetry monitoring. NIBP monitoring applied. manager in home on. Door closed. Noise minimized. Lights dimmed. Warm blanket given. Pillow given. 14:39 No provider procedures requiring assistance completed. ko1 14:42 Patient admitted, IV remains in place. ko1 16:09 Repositioned patient. Cleaned of incontinence. ko1 Administered Medications: No medications were administered Medication: 14:05 VIS not applicable for this client. ko1 Outcome: 13:49 Decision to Hospitalize by Provider. ms3 14:42 Condition: stable ko1 14:42 Instructed on the need for admit, 16:08 Admitted to Med/surg accompanied by tech, via stretcher, room 221, with oxygen, with ko1 chart, 16:10 Patient left the ED. ko1 Signatures: Dispatcher [employer] EDMS Nas Conde DO DO ms3 Melanie Cazares RN RN kc6 Sally Huffman RN RN ko1
--- NOTE | 2024-10-08 14:01 | RAD REPORT ---
Procedure: Chest Single View HISTORY: Hypoxemia COMPARISON: August 2024 FINDINGS: Patient is in a poor degree of inspiration. Pulmonary vascular congestion present. No significant pleural effusion noted. The heart is mildly enlarged. Post surgical changes involve the chest. Pacemaker leads in place. IMPRESSION: Pulmonary vascular congestion
--- NOTE | 2024-10-08 16:31 | P.HP ---
Certification for Inpatient Patient admitted to: Inpatient With expected LOS: >2 Midnights Patient will require the following post-hospital care: None Practitioner: I am a practitioner with admitting privileges, knowledge of patient current condition, hospital course, and medical plan of care. Services: Services provided to patient in accordance with Admission requirements found in Title 42 Section 412.3 of the Code of Federal Regulations Patient History Date of Service: 10/08/24 Reason for admission: CVA History of Present Illness: 79-year-old female with history of chronic diastolic congestive heart failure, diabetes mellitus type 2, hypothyroidism, COPD presents to the emergency department with chief complaint of altered mental status. She was reportedly released from a intermediate facility on 10/05/2024. She has home health, medical equipment including a hospital bed oxygen etc. at the house and family had noted she been having more confusion, hallucinations the past few days. They have also been having difficulty cleaning her. Patient was evaluated in the emergency department and her labs are significant for a creatinine of 1.[address] of her brain showed 18 mm area of diminished density left centrum semiovale white matter could relate to subacute ischemia. CTA of the head was performed which was negative for large vessel occlusion, CT of the neck was performed which showed carotid stenosis to the right carotid at 80 to 90%, left carotid at 70 to 80%. These findings were discussed with neurology recommend medical management for now, would likely benefit with outpatient evaluation for possible endarterectomy/intervention Patient is moving all extremities but very confused, not following simple commands. Very difficult to get an adequate neurological exam at this time. She has suspected subacute CVA and will be admitted for further management. [facility], reportedly could sit at the edge of the bed at most. Allergies codeine [Codeine] Allergy (Severe, Verified 04/10/17 11:24) Nausea/Vomiting hydrochlorothiazide [From Maxzide] Allergy (Severe, Verified 04/10/17 11:24) Anaphylaxis triamterene [From Maxzide] Allergy (Severe, Verified 04/10/17 11:24) Anaphylaxis maxide Allergy (Severe, Uncoded 04/10/17 11:24) Anaphylaxis Home Medications: Allopurinol 300 mg PO DAILY 08/21/24 Levothyroxine [Synthroid*] 112 mcg PO [id number] 08/21/24 Rosuvastatin Calcium [Crestor] 20 mg PO DAILY 08/21/24 Sertraline [Zoloft*] 100 mg PO DAILY 08/21/24 Aspirin Tab [Albertina Aspirin*] 325 mg PO DAILY tab 09/04/24 Pantoprazole [Protonix Tab*] 40 mg PO DAILY tab 09/04/24 Spironolactone [Aldactone*] 25 mg PO DAILY tab 09/04/24 acetaZOLAMIDE [Acetazolamide] 250 mg PO DAILY #30 tab 09/04/24 Albuterol Neb [Proventil 0.083% Neb Soln] 2.5 mg NEB [id number] PRN amp 09/18/24 Ipratropium Neb [Atrovent*] 0.5 mg NEB [id number] PRN amp 09/18/24 Nystatin Powder [Mycostatin (Powder)*] 1 appl TOP BID #1 bottle 09/18/24 Potassium Oral Tab [Klor-Con 10 mEq Tab*] 10 meq PO BID #60 tab 09/18/24 - Past Medical/Surgical History Diabetic: Yes -: HTN -: Hypothyroid -: Hyperlipidemia -: CHF -: DM -: R total knee -: Reaux-Y bypass -: ACL repair 1979 -: Tonsillectomy -: aortic dissection repair 06/2019 -: pacemaker -: CABG Psychosocial/ Personal History: Lives at home with family - Family History Father -: Heart disease, Cancer Mother -: Cancer Sister -: Heart disease - Social History Alcohol use: No CD- Drugs: No Caffeine use: Yes Review of Systems 10-point ROS is otherwise unremarkable General: Weakness Neurological: Confusion Physical Examination - Vital Signs Blood Pressure: 133/65 Pulse: 89 Respirations: 19 - Physical Exam General: Alert, Confused HEENT: Atraumatic, PERRLA, Mucous membr. moist/pink Neck: Supple, 2+ carotid pulse no bruit, No LAD Respiratory: Clear to auscultation bilaterally, Normal air movement Cardiovascular: Regular rate/rhythm, Normal S1 S2 Gastrointestinal: Normal bowel sounds, No tenderness Musculoskeletal: No tenderness Integumentary: No rashes Neurological: Other (Speech is clear, coherent thoughts but not relevant to conversation. Unable to follow commands at this time, is moving all extremities. Difficult to obtain NIH.) - Studies Laboratory Data (last 24 hrs) 10/08/24 10/08/24 10/08/24 12:30 12:30 12:30 WBC 7.80 Hgb 15.0 Hct 53.1 H Plt Count 165 PT 11.9 INR 1.06 APTT 31.2 Sodium 138 Potassium 4.7 BUN 30 H Creatinine 1.46 H Glucose 117 H Assessment and Plan - Plan Assessment: 18 mm left centrum semiovale subacute CVA Metabolic encephalopathy secondary to above Moderate to severe carotid stenosis bilaterally Chronic diastolic congestive heart failure Diabetes mellitus type 2 Hypertension Hyperlipidemia Hypothyroidism GERD Plan: 18 mm left centrum semiovale subacute CVA Metabolic encephalopathy secondary to above Moderate to severe carotid stenosis bilaterally Neurology consult PT/OT/speech consulted Continue aspirin, Plavix, statin Monitor on telemetry Will need outpatient evaluation for possible carotid intervention in the future Chronic diastolic congestive heart failure Does not appear grossly overloaded at this time Continue home medications when verified Diabetes mellitus type 2 Every 6 hours Accu-Chek, sliding scale insulin Hypertension Hyperlipidemia Hypothyroidism GERD Continue home medications when verified DVT PPX: Lovenox Code status: DO NOT INTUBATE Discharge Plan: Detention Plan to discharge in: Greater than 2 days - Advance Directives Does patient have a Living Will: No Does patient have a Durable POA for Healthcare: No - Code Status/Comfort Care Code Status Assessed: Yes (DO NOT INTUBATE) Critical Care: No Time Spent Managing Pts Care (In Minutes): 71
[2024-10-08] MEDS ORDERED: GLUCAGON 1 MG/VIAL IM PRN (16:37)
[2024-10-08] MEDS ORDERED: D10W 125 ML IV PRN (16:37)
[2024-10-08] MEDS: NA CHLORIDE 0.9% 1,000 ML IV SCH (17:49)
[2024-10-08] MEDS: INSULIN REGULAR (HUMAN) 100 UNIT/ML SQ SCH (18:00)
[2024-10-08] MEDS: ATORVASTATIN 40 MG TAB PO SCH (21:00)
[2024-10-08 21:24] VITALS: BMI 23.6
[2024-10-09 06:21] LABS: Albumin 3.4 g/dL (3.4-5.0); Anion Gap 8.4 mEq/L (5.0-15.0); Bilirubin Total 0.5 mg/dL (0.2-1.0); Globulin 3.4 g/dL (2.3-3.5); Potassium 4.4 mEq/L (3.5-5.1); Protein, Total 6.8 g/dL (6.4-8.2); Thyroid Stimulating Hormone 1.79 uIU/mL (0.358-3.740)
[2024-10-09 06:48] LABS: Absolute Eosinophils 0.3 K/uL (0-0.5); Absolute Lymphocytes (CBC) 0.9 K/uL (0.7-4.9); Absolute Monocytes 1.1 K/uL (0.1-1.3); Absolute Neutrophil 5.2 K/uL (1.8-8.0); Basophils % 0.6 % (0-1.3); Eosinophils % 3.3 % (0-4.4); Hematocrit 50.1 % (36.0-45.0); Hemoglobin 14.6 g/dL (12.0-15.0); MCH 27.4 pg (27.0-35.0); MCHC 29.2 g/dL (32.0-36.0); MCV 93.6 fL (80-100); MPV 10.8 fL (7.6-11.3); Monocytes % 14.4 % (3.3-12.3); Neutrophils % 69.7 % (41.7-73.7); Nucleated Red Blood Cells % 0.2 % (0-0); Platelets 168 thou/uL (152-406); RBC Red Blood Cell Count 5.35 M/uL (3.86-4.86); Red Cell Distribution Width 17.9 % (12.1-15.2)
[2024-10-09] MEDS: CLOPIDOGREL 75 MG TABLET PO SCH (08:38)
[2024-10-09] MEDS: ASPIRIN EC 81 MG TAB PO SCH (08:38)
[2024-10-09] MEDS: ENOXAPARIN 30 MG/0.3 ML SQ SCH (08:39)
--- NOTE | 2024-10-09 13:13 | P.PN ---
Date of Service: 10/09/24 Subjective: No acute events overnight Patient slightly better today, able to tell me her name Still quite confused ROS: 10 point ROS as noted above, otherwise negative Physical exam GEN: Alert, confused, oriented x 1, NAD HEENT: Normal conjunctiva, sclera anicteric CV: Regular rate and rhythm, no edema Pulm: Nonlabored respirations on nasal cannula 5 L ABD: Soft, nontender, nondistended MSK: No joint tenderness Integumentary: No rashes Neuro: Normal speech, normal affect Vitals reviewed Assessment: 18 mm left centrum semiovale subacute CVA Metabolic encephalopathy secondary to above Moderate to severe carotid stenosis bilaterally Chronic diastolic congestive heart failure Diabetes mellitus type 2 Hypertension Hyperlipidemia Hypothyroidism GERD Plan: 18 mm left centrum semiovale subacute CVA Metabolic encephalopathy secondary to above Moderate to severe carotid stenosis bilaterally Neurology consult PT/OT/speech consulted Continue aspirin, Plavix, statin Monitor on telemetry Will need outpatient evaluation for possible carotid intervention in the future MRI pending Chronic diastolic congestive heart failure Does not appear grossly overloaded at this time Continue home medications when verified Diabetes mellitus type 2 Every 6 hours Accu-Chek, sliding scale insulin Hypertension Hyperlipidemia Hypothyroidism GERD Continue home medications when verified DVT PPX: Lovenox Code status: DO NOT INTUBATE Discharge Plan: Custodial Plan to discharge in: Greater than 2 days Time Spent Managing Pts Care (In Minutes): 35
[2024-10-09] MEDS: HYDRALAZINE HCL 20 MG/ML VIAL IV PRN (17:15)
[2024-10-10 06:05] LABS: Absolute Basophils 0.1 K/uL (0-0.5); Absolute Eosinophils 0.2 K/uL (0-0.5); Absolute Monocytes 1.4 K/uL (0.1-1.3); Absolute Neutrophil 6.7 K/uL (1.8-8.0); Basophils % 0.7 % (0-1.3); Eosinophils % 2.5 % (0-4.4); Hematocrit 51.7 % (36.0-45.0); Hemoglobin 15.2 g/dL (12.0-15.0); Lymphocytes % 10.4 % (15.3-44.8); MCH 27.1 pg (27.0-35.0); MCHC 29.3 g/dL (32.0-36.0); MCV 92.2 fL (80-100); MPV 10.2 fL (7.6-11.3); Monocytes % 14.9 % (3.3-12.3); Neutrophils % 71.5 % (41.7-73.7); Nucleated Red Blood Cells % 0.1 % (0-0); Platelets 176 thou/uL (152-406); RBC Red Blood Cell Count 5.61 M/uL (3.86-4.86); Red Cell Distribution Width 17.4 % (12.1-15.2)
[2024-10-10 06:35] LABS: Albumin 3.4 g/dL (3.4-5.0); Albumin/Globulin Ratio 0.9 (1.1-1.8); Anion Gap 10.2 mEq/L (5.0-15.0); Bilirubin Total 0.8 mg/dL (0.2-1.0); Globulin 3.6 g/dL (2.3-3.5); Potassium 4.2 mEq/L (3.5-5.1)
[2024-10-10] MEDS: INSULIN REGULAR (HUMAN) 100 UNIT/ML SQ SCH (07:30)
[2024-10-10 08:08] LABS: Platelet Estimate ADEQ; White Blood Cell Scan OK (OK)
[2024-10-10 08:09] LABS: Anisocytosis 1+; Blood Morphology Comment NOTED (NOT SEEN); Macrocytosis 1+
--- NOTE | 2024-10-10 11:32 | EKG ---
Test Date: 2024-10-08 Test Time: 12:45:55 Practical Nursing Teacher: KAREN MEASUREMENT RESULTS: Intervals: Rate: 98 CT: 184 QRSD: 156 QT: 404 QTc: 515 Hilger: P: 65 CT: 184 QRS: -73 T: 97 INTERPRETIVE STATEMENTS: Atrial-sensed ventricular-paced rhythm Abnormal ECG Compared to ECG 09/10/2024 13:38:59 No significant changes Electronically Signed On 10-10-24 11:30:10 SUSTAINABILITY CONSULTANT by Carlos Angeles
--- NOTE | 2024-10-10 13:28 | ECHO ---
HEIGHT: 5 ft 2 in WEIGHT: 129 lb 8 oz DATE OF STUDY: 10/09/[address]: Gianni Castellon NP 2-DIMENSIONAL: YES M.MODE: YES DOPPLER: YES COLOR FLOW: YES TDS: NO PORTABLE: YES DEFINITY: NO BUBBLE STUDY: NO DIAGNOSIS: STROKE CARDIAC HISTORY: CATHERIZATION: SURGERY: PROSTHETIC VALVE: PACEMAKER: MEASUREMENTS (cm) DIASTOLIC (NORMALS) SYSTOLIC (NORMALS) IVSd 1.5 (0.6-1.2) LA Diam 3.1 (1.9-4.0) LVEF 55-60% LVIDd 4.0 (3.5-5.7) LVIDs 3.2 (2.0-3.5) %FS 21% LVPWd 1.6 (0.6-1.2) Ao Diam 2.9 (2.0-3.7) 2 DIMENSIONAL ASSESSMENT: RIGHT ATRIUM: NORMAL LEFT ATRIUM: NORMAL RIGHT VENTRICLE: MILDLY DILATED LEFT VENTRICLE: NORMAL TRICUSPID VALVE: MODERATE TRICUSPID REGURGITATION MITRAL VALVE: NORMAL PULMONIC VALVE: NORMAL AORTIC VALVE: TRACE AORTIC REGURGITATION PERICARDIAL EFFUSION: NONE AORTIC ROOT: NORMAL LEFT VENTRICULAR WALL MOTION: NORMAL. DOPPLER/COLOR FLOW: NORMAL. COMMENTS: 1. NORMAL LEFT VENTRICULAR SYSTOLIC FUNCTION. LEFT VENTRICULAR EJECTION FRACTION 55-60%. NORMAL DIASTOLIC FUNCTION. 2. MODERATE TRICUSPID REGURGITATION. 3. MODERATE PULMONARY HYPERTENSION. RIGHT VENTRICULAR SYSTOLIC PRESSURE 50-55 mmHg. 4. ELEVATED FILLING PRESSURE. RIGHT ATRIAL PRESSURE 15-20 mmHg. TECHNOLOGIST: CYNTHIA GRIMALDO
--- NOTE | 2024-10-10 19:46 | P.PN ---
Date of Service: 10/10/24 Subjective: Awake, oriented x1 Able to work more with therapy Awaiting Placement ROS: 10 point ROS as noted above, otherwise negative Physical exam GEN: Alert, confused, oriented x 1, NAD HEENT: Normal conjunctiva, sclera anicteric CV: Regular rate and rhythm, no edema Pulm: Nonlabored respirations on nasal cannula 5 L ABD: Soft, nontender, nondistended MSK: No joint tenderness Integumentary: No rashes Neuro: Normal speech, normal affect Vitals reviewed Assessment: 18 mm left centrum semiovale subacute CVA Metabolic encephalopathy secondary to above Moderate to severe carotid stenosis bilaterally Chronic diastolic congestive heart failure Diabetes mellitus type 2 Hypertension Hyperlipidemia Hypothyroidism GERD Plan: 18 mm left centrum semiovale subacute CVA Metabolic encephalopathy secondary to above Moderate to severe carotid stenosis bilaterally Neurology consult PT/OT/speech consulted Continue aspirin, Plavix, statin Monitor on telemetry Will need outpatient evaluation for possible carotid intervention in the future MRI pending Chronic diastolic congestive heart failure Does not appear grossly overloaded at this time Continue home medications when verified Diabetes mellitus type 2 Every 6 hours Accu-Chek, sliding scale insulin Hypertension Hyperlipidemia Hypothyroidism GERD Continue home medications when verified DVT PPX: Lovenox Code status: DO NOT INTUBATE Discharge Plan: Jail Plan to discharge in: Greater than 2 days
[2024-10-10] MEDS: ATORVASTATIN 40 MG TAB PO SCH (21:10)
[2024-10-11 05:53] LABS: Absolute Eosinophils 0.4 K/uL (0-0.5); Absolute Lymphocytes (CBC) 0.9 K/uL (0.7-4.9); Absolute Monocytes 1.1 K/uL (0.1-1.3); Absolute Neutrophil 4.8 K/uL (1.8-8.0); Basophils % 0.7 % (0-1.3); Eosinophils % 4.9 % (0-4.4); Hematocrit 47.2 % (36.0-45.0); Hemoglobin 13.9 g/dL (12.0-15.0); Lymphocytes % 12.7 % (15.3-44.8); MCHC 29.5 g/dL (32.0-36.0); MCV 91.4 fL (80-100); MPV 9.8 fL (7.6-11.3); Monocytes % 15.7 % (3.3-12.3); Nucleated Red Blood Cells % 0.1 % (0-0); Platelets 166 thou/uL (152-406); RBC Red Blood Cell Count 5.17 M/uL (3.86-4.86); Red Cell Distribution Width 17.5 % (12.1-15.2)
[2024-10-11 06:18] LABS: Albumin 3.2 g/dL (3.4-5.0); Albumin/Globulin Ratio 1.1 (1.1-1.8); Anion Gap 5.7 mEq/L (5.0-15.0); Bilirubin Total 0.7 mg/dL (0.2-1.0); Globulin 2.9 g/dL (2.3-3.5); Potassium 3.7 mEq/L (3.5-5.1); Protein, Total 6.1 g/dL (6.4-8.2)
[2024-10-11] MEDS: LEVOTHYROXINE SOD 0.112 MG TAB PO SCH (06:21)
[2024-10-11] MEDS: allopurinoL 300 MG TAB PO SCH (09:00)
[2024-10-11] MEDS: ENOXAPARIN 40 MG/0.4 ML SQ SCH (09:00)
[2024-10-11] MEDS: SERTRALINE HCL 100 MG TAB PO SCH (09:00)
--- NOTE | 2024-10-11 16:16 | P.PN ---
Date of Service: 10/11/24 Subjective: Awake, son at the bedside who is encouraging her to eat No new complaints Awaiting Placement, home health is not an option with increased needs ROS: 10 point ROS as noted above, otherwise negative Physical exam GEN: Alert, confused, oriented x 1, NAD HEENT: Normal conjunctiva, sclera anicteric CV: Tachycardic with pacemaker, S1 S2 present Pulm: Nonlabored respirations on nasal cannula 5 L ABD: Soft on palpation, ND/NT MSK: No joint tenderness Integumentary: No rashes Neuro: Normal speech, normal affect Vitals reviewed Assessment: 18 mm left centrum semiovale subacute CVA Metabolic encephalopathy secondary to above Moderate to severe carotid stenosis bilaterally Chronic diastolic congestive heart failure Diabetes mellitus type 2 Hypertension Hyperlipidemia Hypothyroidism GERD Plan: 18 mm left centrum semiovale subacute CVA Metabolic encephalopathy secondary to above Moderate to severe carotid stenosis bilaterally Neurology consult PT/OT/speech consulted Continue aspirin, Plavix, statin Monitor on telemetry Will need outpatient evaluation for possible carotid intervention in the future MRI-unable to perform d/t pacemaker Chronic diastolic congestive heart failure Does not appear grossly overloaded at this time Continue home medications when verified Diabetes mellitus type 2 Every 6 hours Accu-Chek, sliding scale insulin Reasonably controlled Hypertension Hyperlipidemia Hypothyroidism GERD Continue home medications when verified DVT PPX: Lovenox Code status: DO NOT INTUBATE Discharge Plan: [facility] Plan to discharge in: Greater than 2 days
[2024-10-12 06:54] LABS: Specific Gravity 1.013 (1.005-1.030); Sqamous Epithelial <5 /HPF (None Seen); Urine Bacteria 20-50 /HPF (<20); Urine Bilirubin NEGATIVE (Negative); Urine Blood 1+ (Negative); Urine Clarity Extremely Turbid (Clear); Urine Color Yellow (Yellow); Urine Culture Reflex Order NOT NEEDED; Urine Glucose NEGATIVE (Negative); Urine Ketones NEGATIVE (Negative); Urine Micro Reflex YN NO BILL MICROSCOPIC; Urine Mucus Slight /HPF (None Seen); Urine Nitrite NEGATIVE (Negative); Urine Protein 1+ (Negative); Urine RBC <5 /HPF (None Seen); Urine Urobilinogen 2+ (Normal); Urine WBC <5 /HPF (<5); Urine pH 7.5 (5.0-7.0)
[2024-10-12] MEDS: METOPROLOL TAR 25 MG TAB PO SCH (10:01)
--- NOTE | 2024-10-12 16:14 | P.PN ---
Date of Service: 10/12/24 Subjective: Conversing well, son reports she is eating better than [employer]ATOR No new complaints Awaiting discharge arrangements, home health is not an option with increased needs Max assist ROS: 10 point ROS as noted above, otherwise negative Physical exam GEN: Alert, oriented x 1, pleasantly confused, NAD HEENT: Normal conjunctiva, sclera anicteric CV: Tachycardic with pacemaker, S1 S2 present Pulm: Nonlabored respirations, Clear BBS, on nasal cannula 5 L ABD: Soft on palpation, ND/NT, active bowel sounds MSK: No joint tenderness Integumentary: No rashes Neuro: Normal speech, normal affect Vitals reviewed Assessment: 18 mm left centrum semiovale subacute CVA Metabolic encephalopathy secondary to above Moderate to severe carotid stenosis bilaterally Chronic diastolic congestive heart failure Diabetes mellitus type 2 Hypertension Hyperlipidemia Hypothyroidism GERD Plan: 18 mm left centrum semiovale subacute CVA Metabolic encephalopathy secondary to above Moderate to severe carotid stenosis bilaterally Neurology consult PT/OT/speech consulted Continue aspirin, Plavix, statin Monitor on telemetry Will need outpatient evaluation for possible carotid intervention in the future MRI-unable to perform d/t pacemaker Chronic diastolic congestive heart failure Does not appear grossly overloaded at this time Continue home medications when verified Diabetes mellitus type 2 Every 6 hours Accu-Chek, sliding scale insulin Reasonably controlled Hypertension Tachycardia with a pacemaker Started low dose metoprolol Will continue to monitor Hyperlipidemia Hypothyroidism GERD Continue home medications when verified DVT PPX: Lovenox Code status: DO NOT INTUBATE Discharge Plan: Detention Plan to discharge in: Greater than 2 days
[2024-10-13 06:29] LABS: Absolute Basophils 0.1 K/uL (0-0.5); Absolute Eosinophils 0.5 K/uL (0-0.5); Absolute Monocytes 1.4 K/uL (0.1-1.3); Absolute Neutrophil 4.7 K/uL (1.8-8.0); Basophils % 0.7 % (0-1.3); Eosinophils % 6.2 % (0-4.4); Hematocrit 48.7 % (36.0-45.0); Hemoglobin 14.4 g/dL (12.0-15.0); Lymphocytes % 12.9 % (15.3-44.8); MCHC 29.5 g/dL (32.0-36.0); MCV 91.7 fL (80-100); MPV 10.4 fL (7.6-11.3); Monocytes % 18.1 % (3.3-12.3); Neutrophils % 62.1 % (41.7-73.7); Platelets 93 thou/uL (152-406); RBC Red Blood Cell Count 5.32 M/uL (3.86-4.86); Red Cell Distribution Width 17.2 % (12.1-15.2)
[2024-10-13 06:31] LABS: Anion Gap 8.8 mEq/L (5.0-15.0); Phosphorus 2.7 mg/dL (2.5-4.9); Potassium 3.8 mEq/L (3.5-5.1)
--- NOTE | 2024-10-13 19:03 | P.PN ---
Date of Service: 10/13/24 Subjective: Sleeping, but awakens easily revisited this afternoon and she was eating. Blood pressure dropped, stabilized throughout the day. Plan to find placement for discharge. ROS: 10 point ROS as noted above, otherwise negative Physical exam GEN: Alert, oriented x 1, pleasantly confused, NAD HEENT: Normal conjunctiva, sclera anicteric CV: Tachycardic with pacemaker, S1 S2 present Pulm: Nonlabored respirations, symmetrical chest wall movement, on nasal cannula 5 L ABD: Soft on palpation, NT, active bowel sounds MSK: No joint tenderness Integumentary: No rashes Neuro: Normal speech, normal affect Vitals reviewed Assessment: 18 mm left centrum semiovale subacute CVA Metabolic encephalopathy secondary to above Moderate to severe carotid stenosis bilaterally Chronic diastolic congestive heart failure Diabetes mellitus type 2 Hypertension Hyperlipidemia Hypothyroidism GERD Plan: 18 mm left centrum semiovale subacute CVA Metabolic encephalopathy secondary to above Moderate to severe carotid stenosis bilaterally Neurology consult PT/OT/speech consulted Continue aspirin, Plavix, statin Monitor on telemetry Will need outpatient evaluation for possible carotid intervention in the future MRI-unable to perform d/t pacemaker Chronic diastolic congestive heart failure Does not appear grossly overloaded at this time Continue home medications Diabetes mellitus type 2 Every 6 hours Accu-Chek, sliding scale insulin Reasonably controlled Hypertension Tachycardia with a pacemaker Holding metoprolol Will continue to monitor Hyperlipidemia Hypothyroidism GERD Continue home medications when verified DVT PPX: Lovenox Code status: DO NOT INTUBATE Discharge Plan: Longterm Plan to discharge in: Greater than 2 days
[2024-10-13] MEDS: ACETAMINOPHEN 325 MG TABLET PO ONE (20:22)
[2024-10-13 20:54] VITALS: O2SAT 96
[2024-10-14] MEDS: ENOXAPARIN 40 MG/0.4 ML SQ SCH (08:54)
[2024-10-15] MEDS: ACETAMINOPHEN 500 MG TAB PO PRN (02:48)
--- NOTE | 2024-10-15 15:55 | P.PN ---
Date of Service: 10/14/24 Subjective: Awake, eating breakfast no new complaints Awaiting placement ROS: 10 point ROS as noted above, otherwise negative Physical exam GEN: Alert, oriented x 1, no acute distress HEENT: Normal conjunctiva, sclera anicteric CV: Tachycardic with pacemaker, S1 S2 present Pulm: Nonlabored respirations, Clear BBS, on nasal cannula 5 L ABD: Soft and benign on palpation, NT, active bowel sounds MSK: No joint tenderness Integumentary: No rashes Neuro: Normal speech, normal affect Vitals reviewed Assessment: 18 mm left centrum semiovale subacute CVA Metabolic encephalopathy secondary to above Moderate to severe carotid stenosis bilaterally Chronic diastolic congestive heart failure Diabetes mellitus type 2 Hypertension Hyperlipidemia Hypothyroidism GERD Plan: 18 mm left centrum semiovale subacute CVA Metabolic encephalopathy secondary to above Moderate to severe carotid stenosis bilaterally Neurology consult PT/OT/speech consulted Continue aspirin, Plavix, statin Monitor on telemetry Will need outpatient evaluation for possible carotid intervention in the future MRI-unable to perform d/t pacemaker Chronic diastolic congestive heart failure Does not appear grossly overloaded at this time Continue home medications Diabetes mellitus type 2 Every 6 hours Accu-Chek, sliding scale insulin Reasonably controlled Hypertension Tachycardia with a pacemaker Holding metoprolol Will continue to monitor Hyperlipidemia Hypothyroidism GERD Continue home medications when verified DVT PPX: Lovenox Code status: DO NOT INTUBATE Discharge Plan: Skilled Nursing Plan to discharge in: Greater than 2 days
--- NOTE | 2024-10-15 16:19 | P.DS ---
Admission Date: 10/08/24 Discharge Date: 10/15/24 Disposition: DC HOME/HOME HEALTH CARE Discharge Condition: FAIR Reason for Admission: CVA Brief History of Present Illness: Diagnosis 18 mm left centrum semiovale subacute CVA Metabolic encephalopathy secondary to above Moderate to severe carotid stenosis bilaterally Chronic diastolic congestive heart failure Diabetes mellitus type 2 Hypertension Hyperlipidemia Hypothyroidism GERD HPI 10/08/24 Clare Oleary is a 79-year-old female with history of chronic diastolic congestive heart failure, diabetes mellitus type 2, hypothyroidism, COPD presents to the emergency department with chief complaint of altered mental status. She was reportedly [facility] from a [facility] facility on 10/[facility]/2024. She has home health, medical equipment including a hospital bed oxygen etc. at the house and family had noted she been having more confusion, hallucinations the past few days. They have also been having difficulty cleaning her. Patient was evaluated in the emergency department and her labs are significant for a creatinine of 1.[address] of her brain showed 18 mm area of diminished density left centrum semiovale white matter could relate to subacute ischemia. CTA of the head was performed which was negative for large vessel occlusion, CT of the neck was performed which showed carotid stenosis to the right carotid at 80 to 90%, left carotid at 70 to 80%. These findings were discussed with neurology recommend medical management for now, would likely benefit with outpatient evaluation for possible endarterectomy/intervention Patient is moving all extremities but very confused, not following simple commands. Very difficult to get an adequate neurological exam at this time. She has suspected subacute CVA and will be admitted for further management. [facility], reportedly could sit at the edge of the bed at most. Hospital Course: Clare Oleary is a pleasant 79 year old female with a past medical history significant for chronic diastolic congestive heart failure, diabetes mellitus type 2, hypothyroidism, COPD who was admitted to the [facility] on 10/08/24 for subacute CVA. Clare presented moving all extremities but very confused, not following simple commands. Very difficult to get an adequate neurological exam at this time. She was suspected to have a subacute CVA. No MRI d/t pacemaker present. Dr. Villegas was consulted with recommendations to start plavix, folic acid, statin, and aspirin. ECHO showing normal EF, moderate trace tricuspid regurgitation and trace aortic regurgitation. During this admission PT evaluated deemed her a total assist and reported cognitive improvement. 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 She reports being on 5 LNC at home with home oxygen available. Her son was consistently at the bedside to help her eat and keep her company. She responded well to him, she began conversing better, but remained pleasantly confused. Glucose has been well controlled and BP was tolerated with permissive HTN. APS report was placed for the patient and will need to be contacted at discharge. On 10/15/24, Clare was seen on morning rounds and deemed medically stable for discharged home with home health and family support. Clare was discharged with instructions to schedule follow-up appointments with PCP and Dr. Villegas. Clare was provided prescriptions for aspirin and plavix. Physical exam GEN: Awake, Alert, oriented x 1, pleasantly confused, NAD HEENT: Normal conjunctiva, sclera anicteric CV: Tachycardic with pacemaker, S1 S2 present Pulm: Nonlabored respirations, symmetrical chest wall movement, on nasal cannula 5 L ABD: Soft on palpation, NT, active bowel sounds MSK: No joint tenderness Integumentary: No rashes Neuro: Normal speech, normal affect Vital Signs/Physical Exam: Temp Pulse Resp BP Pulse Ox 97.6 F 91 H 20 162/76 H 93 10/15/24 12:00 10/15/24 12:00 10/15/24 12:00 10/15/24 12:00 10/15/24 12:00 Laboratory Data at Discharge: WBC 7.70 thou/uL (4.3-10.9) 10/13/24 05:44 Hgb 14.4 g/dL (12.0-15.0) 10/13/24 05:44 Hct 48.7 % (36.0-45.0) H 10/13/24 05:44 Plt Count 93 thou/uL (152-406) L 10/13/24 05:44 PT 11.9 SECONDS (9.4-12.5) 10/08/24 12:30 INR 1.06 10/08/24 12:30 APTT 31.2 SECONDS (24.3-36.9) 10/08/24 12:30 Sodium 137 mEq/L (136-145) 10/13/24 05:44 Potassium 3.8 mEq/L (3.5-5.1) 10/13/24 05:44 BUN 24 mg/dL (7-18) H 10/13/24 05:44 Creatinine 0.87 mg/dL (0.55-1.02) 10/13/24 05:44 Glucose 106 mg/dL (74-106) 10/13/24 05:44 Phosphorus 2.7 mg/dL (2.5-4.9) 10/13/24 05:44 Total Bilirubin 0.7 mg/dL (0.2-1.0) 10/11/24 05:38 AST 21 U/L (15-37) 10/11/24 05:38 ALT 17 U/L (13-56) 10/11/24 05:38 Alkaline Phosphatase 65 U/L (45-117) 10/11/24 05:38 Triglycerides 103 mg/dL (<150) 10/09/24 05:22 Cholesterol 140 mg/dL (<200) 10/09/24 05:22 HDL Cholesterol 38 mg/dL (40-60) L 10/09/24 05:22 Cholesterol/HDL Ratio 3.68 10/09/24 05:22 Home Medications: Allopurinol 300 mg PO DAILY 08/21/24 Levothyroxine [Synthroid*] 112 mcg PO [id number] 08/21/24 Rosuvastatin Calcium [Crestor] 20 mg PO DAILY 08/21/24 Sertraline [Zoloft*] 100 mg PO DAILY 08/21/24 Pantoprazole [Protonix Tab*] 40 mg PO DAILY tab 09/04/24 Spironolactone [Aldactone*] 25 mg PO DAILY tab 09/04/24 acetaZOLAMIDE [Acetazolamide] 250 mg PO DAILY #30 tab 09/04/24 Albuterol Neb [Proventil 0.083% Neb Soln] 2.5 mg NEB [id number] PRN amp 09/18/24 Ipratropium Neb [Atrovent*] 0.5 mg NEB [id number] PRN amp 09/18/24 Nystatin Powder [Mycostatin (Powder)*] 1 appl TOP BID #1 bottle 09/18/24 Omeprazole 20 mg PO DAILY 10/08/24 Aspirin [Aspirin EC 81 MG] 81 mg PO DAILY #30 tab 10/15/24 Clopidogrel Bisulfate [Plavix*] 75 mg PO DAILY #30 tab 10/15/24 New Medications: Aspirin [Aspirin EC 81 MG] 81 mg PO DAILY #30 tab Clopidogrel Bisulfate [Plavix*] 75 mg PO DAILY #30 tab Diet: AHA Activity: Fall precautions Followup: NONE,NONE [Primary Care Provider] - 1-2 Weeks
[2024-10-15 16:33] VITALS: BP 185/93; TEMP 98.3
== END 2024-10-15 17:24 | disposition home health service (06) | DRG 64 ==
LOC: ER 11:55 → ERHOLD 15:03 → 2ND 16:11
PROVIDERS: ADMIT Hospitalist; ATTEND Internal Medicine
DX: I63.9 Cerebral infarction, unspecified (principal); G93.41 Metabolic encephalopathy; I13.0 Hypertensive heart and chronic kidney disease with heart failure and stage 1 through stage 4 chronic kidney disease, or unspecified chronic kidney disease; I50.32 Chronic diastolic (congestive) heart failure; N18.9 Chronic kidney disease, unspecified; E11.22 Type 2 diabetes mellitus with diabetic chronic kidney disease; E78.5 Hyperlipidemia, unspecified; E03.9 Hypothyroidism, unspecified; K21.9 Gastro-esophageal reflux disease without esophagitis; I65.23 Occlusion and stenosis of bilateral carotid arteries; J44.9 Chronic obstructive pulmonary disease, unspecified; R29.810 Facial weakness; Z66 Do not resuscitate; Z95.0 Presence of cardiac pacemaker; Z88.5 Allergy status to narcotic agent; Z95.1 Presence of aortocoronary bypass graft; Z88.8 Allergy status to other drugs, medicaments and biological substances; Z79.82 Long term (current) use of aspirin; Z86.73 Personal history of transient ischemic attack (TIA), and cerebral infarction without residual deficits; Z79.890 Hormone replacement therapy; Z79.899 Other long term (current) drug therapy
CPT/HCPCS: 36415; 70450; 70496; 70498; 71045; 80048; 80053; 80061; 81001; 82947; 84100; 84443; 84484; 85025; 85610; 85730; 92610; 93005; 93306; 97110; 97161; 97165; 97530; 99285; J0360; J1650; J7030; Q9967

== ENCOUNTER 2024-10-15 18:40 | Inpatient (IN) | payer OTHER ==
--- NOTE | 2024-10-15 20:22 | EDPHYS ---
Physician Documentation [facility] Name: Clare Oleary Age: 79 yrs Sex: Female : 1945 Arrival Date: 10/15/2024 Time: 18:40 Bed 2 Private MD: ED Physician Emmanuel Reyna HPI: 10/15 19:30 This 79 yrs old Female presents to ER via EMS with complaints of Shortness Of lidia Breath. 19:30 The patient has shortness of breath at rest, with light activity. Onset: The lidia symptoms/episode began/occurred just prior to arrival. The patient's shortness of breath is aggravated by coughing, light activity. Associated signs and symptoms: Pertinent positives: non-productive cough. Severity of symptoms: At their worst the symptoms were moderate in the emergency department the symptoms are unchanged. The patient has experienced similar episodes in the past, multiple times, JUST DC'D. Historical: - Allergies: 18:48 Codeine; ll1 18:48 hydrochlorothiazide; ll1 18:48 maxide; ll1 18:48 Triamterene; ll1 - PMHx: 18:48 Congestive heart failure; diabetes mellitus; Gastroesophageal reflux disease; ll1 Hyperlipidemia (Unknown); Hypertensive disorder; Hypothyroidism; - PSHx: 18:48 Coronary Angioplasty; Coronary artery bypass graft; pacemaker; ll1 - Immunization history:: Adult Immunizations up to date. - Infectious Disease History:: Denies. - Social history:: Smoking status: unknown. ROS: 19:32 Constitutional: Negative for fever, chills, and weight loss, Eyes: Negative for injury, lidia pain, redness, and discharge, ENT: Negative for injury, pain, and discharge, Neck: Negative for injury, pain, and swelling, Abdomen/GI: Negative for abdominal pain, nausea, vomiting, diarrhea, and constipation, Back: Negative for injury and pain, : Negative for injury, bleeding, discharge, and swelling, MS/Extremity: Negative for injury and deformity, Skin: Negative for injury, rash, and discoloration, Neuro: Negative for headache, weakness, numbness, tingling, and seizure, 19:32 Cardiovascular: Positive for palpitations, 19:32 Respiratory: Positive for cough, shortness of breath, wheezing, expiratory, Exam: 19:32 Constitutional: This is a well developed, well nourished patient who is awake, alert, lidia and in no acute distress. Head/Face: Normocephalic, atraumatic. Eyes: Pupils equal round and reactive to light, extra-ocular motions intact. Lids and lashes normal. Conjunctiva and sclera are non-icteric and not injected. Cornea within normal limits. Periorbital areas with no swelling, redness, or edema. ENT: Nares patent. No nasal discharge, no septal abnormalities noted. Tympanic membranes are normal and external auditory canals are clear. Oropharynx with no redness, swelling, or masses, exudates, or evidence of obstruction, uvula midline. Mucous membranes moist. Neck: Trachea midline, no thyromegaly or masses palpated, and no cervical lymphadenopathy. Supple, full range of motion without nuchal rigidity, or vertebral point tenderness. No Meningismus. Chest/axilla: Normal chest wall appearance and motion. Nontender with no deformity. No lesions are appreciated. Abdomen/GI: Soft, non-tender, with normal bowel sounds. No distension or tympany. No guarding or rebound. No evidence of tenderness throughout. Back: No spinal tenderness. No costovertebral tenderness. Full range of motion. Female : Normal external genitalia. Skin: Warm, dry with normal turgor. Normal color with no rashes, no lesions, and no evidence of cellulitis. MS/ Extremity: Pulses equal, no cyanosis. Neurovascular intact. Full, normal range of motion., bilateral aka Neuro: Awake and alert, GCS 15, oriented to person, place, time, and situation. Cranial nerves II-XII grossly intact. Motor strength 5/5 in all extremities. Sensory grossly intact. Cerebellar exam normal. Normal gait. Psych: Awake, alert, with orientation to person, place and time. Behavior, mood, and affect are within normal limits. 19:32 Cardiovascular: Rate: tachycardic, actual rate is 106 bpm, Rhythm: regular, Pulses: Pulses are 4+ in bilateral radial, brachial, femoral, popliteal, posterior tibial and and dorsalis pedis arteries.. Heart sounds: normal, Edema: is not appreciated, JVD: is not appreciated, 20:29 ECG was reviewed by the Attending Physician. [facility] Vital Signs: 19:08 BP 113 / 65; Pulse 106 MON; Resp 24 S; Pulse Ox 93% on 10 lpm Non-rebreather mask; aa10 23:05 BP 118 / 101 LA Supine (/lg); Pulse 94; Resp 20 S; Temp 97.7(O); Pulse Ox 90% on 2 lpm aa10 NC; 19:08 Sinus tachycardia aa10 Procedures: 21:00 Central Line: the site was prepped with Betadine, in sterile fashion, a triple lumen sp4 catheter was inserted, in the right internal jugular vein, in 1 attempts. placement was verified, by CXR, by blood return, Ultrasound-guided central line, the site was dressed with 4X4s, Tegaderm, using sterile technique, the patient tolerated the procedure, well, Ultrasound-guided central venous line placed secondary to exhausted peripheral access. MDM: 18:51 Medical Screening Exam initiated lidia 19:35 Differential diagnosis: Anemia Anxiety Reaction asthma, Bronchitis CHF exacerbation, lidia Chronic Obstructive Pulmonary Disease Myocardial Infarction pneumonia, pulmonary edema, reactive airway disease, Sepsis Unstable Angina. Antibiotic administration: Levaquin given. Differential Diagnosis altered mental status, sepsis, flu. Immunization status: Pneumococcal vaccine: within last 5 years. Influenza vaccine: within last 5 years. Data reviewed: vital signs, nurses notes, lab test result(s), EKG, radiologic studies, plain films. Consideration of Admission/Observation Patient was admitted/placed on observation. Escalation of care including admission/observation considered. I considered the following discharge prescriptions or medication management in the emergency department Medications were administered in the Emergency Department. See MAR. Independent interpretation of the following test(s) in the Emergency Department EKG: See my EKG interpretation above. Test considered but Not performed: Ultrasound NO 2 D ECHO. 20:18 Post IV fluid administration reassessment for Sepsis: Client not prescribed the 30 lidia mL/kg IVF due to: CHF. 10/16 00:47 ED course: After a central line - EXAM: XR Chest, 1 View CLINICAL HISTORY: The patient swati is 79 years old and is Female; central line placement TECHNIQUE: Frontal view of the chest. COMPARISON: No relevant prior studies available. FINDINGS: LUNGS: There are low lung volumes. Bibasilar opacities are noted. Prominence of the pulmonary vasculature is present. PLEURAL SPACE: Unremarkable. No pneumothorax. HEART: The cardiac silhouette appears enlarged. MEDIASTINUM: Unremarkable. Normal mediastinal contour. BONES/JOINTS: Degenerative change of the shoulders and spine is noted. No acute fracture. VASCULATURE: An aortic endograft is noted. TUBES, LINES AND DEVICES: A right IJ central venous catheter is present with the tip at the SVC/RA junction. A left-sided pacemaker is noted. UPPER ABDOMEN: Unremarkable as visualized. IMPRESSION: 1. A right IJ central venous catheter is present with the tip at the SVC/RA junction. 2. Low lung volumes with vascular congestion and bibasilar atelectasis.. 10/15 19:20 Order name: Basic Metabolic Panel; Complete Time: 20:54 [facility] 10/15 19:20 Order name: CBC with Diff; Complete Time: 20:46 [facility] 10/15 19:20 Order name: LFT's; Complete Time: 20:54 [facility] 10/15 19:20 Order name: Magnesium; Complete Time: 20:54 [facility] 10/15 19:20 Order name: NT PRO-BNP; Complete Time: 20:54 [facility] 10/15 19:20 Order name: PT-INR; Complete Time: 20:46 [facility] 10/15 19:20 Order name: Troponin HS; Complete Time: 20:54 [facility] 10/15 19:20 Order name: Urinalysis w/ reflexes [facility] 10/15 19:34 Order name: Blood Culture Adult (2) [facility] 10/15 19:34 Order name: Lactate w/ 2H reflex if indic. [facility] 10/15 20:19 Order name: ABG [facility] 10/15 21:24 Order name: Urinalysis w/ reflexes [facility] 10/15 21:24 Order name: CBC with Automated Diff [facility] 10/15 21:24 Order name: CBC with Automated Diff [facility] 10/15 21:24 Order name: Comprehensive Metabolic Panel [facility] 10/15 21:24 Order name: Comprehensive Metabolic Panel [facility] 10/15 21:24 Order name: Troponin High Sensitivity [facility] 10/15 21:24 Order name: Troponin High Sensitivity [facility] 10/15 21:24 Order name: Troponin High Sensitivity [facility] 10/15 21:24 Order name: Troponin High Sensitivity [facility] 10/15 21:33 Order name: Urine Culture [facility] 10/15 19:20 Order name: XRAY Chest (1 view); Complete Time: 21:28 [facility] 10/16 01:22 Order name: RAD [facility] 10/15 19:20 Order name: EKG; Complete Time: 19:20 [facility] 10/15 19:20 Order name: Cardiac monitoring; Complete Time: 21:19 [facility] 10/15 19:20 Order name: EKG - Nurse/Tech; Complete Time: 20:07 [facility] 10/15 19:20 Order name: IV Saline Lock; Complete Time: 21:19 [facility] 10/15 19:20 Order name: Labs collected and sent; Complete Time: 01:08 [facility] 10/15 19:20 Order name: O2 Per Protocol; Complete Time: 21: [facility] 10/15 19:20 Order name: O2 Sat Monitoring; Complete Time: 21: [facility] 10/15 19:35 Order name: [place]; Complete Time: 21:19 [facility] EC/24 20:29 Rate is 101 beats/min. Rhythm is regular. QRS [place] is Normal. CO interval is normal. lidia QRS interval is normal. QT interval is normal. No Q waves. T waves are Normal. No ST changes noted. Clinical impression: Abnormal EKG without significant change and No evidence of ischemia. Interpreted by me. Reviewed by me. Administered Medications: 19:34 CANCELLED (Duplicate Order): ns 0.9% 500 ml 500 ml IV at 1 bolus once; to be given as a lidia bolus over 30 minutes 20:18 CANCELLED (Duplicate Order): ns 0.9% (30 ml/kg) 30 ml/kg IV at bolus once; Sepsis [facility] Protocol; to be given as a bolus over 90 minutes 21:29 CANCELLED (Physician Discretion): ns 0.9% 500 ml 500 ml IV at 1 bolus once; to be given sb4 as a bolus over 30 minutes 21:31 Drug: Magnesium Sulfate IVPB 1 grams IVPB once over 1 hrs Route: IVPB; Infused Over: 1 aa10 hrs; Site: right forearm; 23:42 Follow up: Response: No adverse reaction; Marked relief of symptoms aa10 23:57 Follow up: IV Status: Completed infusion; IV Intake: 100ml aa10 21:31 Drug: Aspirin PO Chewable Tablet 81 mg PO once Route: PO; aa10 23:41 Follow up: Response: No adverse reaction; Marked relief of symptoms aa10 21:31 Drug: Clopidogrel PO 75 mg PO once Route: PO; aa10 23:32 Follow up: Response: No adverse reaction aa10 21:31 Drug: Enoxaparin Sub-Q 100 mg Sub-Q once Route: Sub-Q; Site: abdomen; aa10 23:31 Follow up: Response: No adverse reaction aa10 22:18 Drug: MethylPrednisoLONE IVP 125 mg IVP once Route: IVP; Site: right forearm; aa10 23:39 Follow up: Response: No adverse reaction; Marked relief of symptoms aa10 22:18 Drug: Famotidine IVP 20 mg IVP once; dilute with 10 mL 0.9% NaCl; give over 2 minutes aa10 Route: IVP; Site: right forearm; 23:39 Follow up: Response: No adverse reaction aa10 22:19 Drug: Levalbuterol Inhalation 2.5 mg Inhalation once Route: Inhalation; aa10 23:40 Follow up: Response: No adverse reaction; Marked relief of symptoms aa10 22:19 Drug: Ipratropium Inhalation Aerosol 0.5 mg Inhalation once Route: Inhalation; aa10 23:40 Follow up: Response: No adverse reaction; Marked relief of symptoms aa10 22:20 CANCELLED (Physician Discretion): ns 0.9% 500 ml 500 ml IV at 125 ml/hr once aa10 23:46 Drug: levofloxacin IVPB 500 mg 100 ml IVPB once over 60 mins Volume: 100 ml; Route: aa10 IVPB; Infused Over: 60 mins; Site: right jugular; 10/16 01:07 Follow up: IV Status: Completed infusion :07 Follow up: Response: No adverse reaction; Marked relief of symptoms aa10 Disposition Summary: 10/15/24 20:21 Hospitalization Ordered Notes: Hospitalization Status: Inpatient Admission lidia Provider: [facility] cha Location: Telemetry/MedSurg (Inpatient) lidia Condition: Fair lidia Problem: an ongoing problem lidia Symptoms: have worsened lidia Bed/Room Type: Standard lidia Room Assignment: 204(10/15/24 22:54) rv1 Diagnosis - Morbid (severe) obesity with alveolar hypoventilation lidia - Dyspnea lidia - Hypoxemia lidia - COPD/ Chronic obstructive pulmonary disease with (acute) exacerbation lidia - Chronic combined systolic (congestive) and diastolic (congestive) heart failure lidia - Chronic kidney disease, unspecified lidia - Presence of cardiac pacemaker lidia - Elevated white blood cell count lidia - Non ST elevation [place] lidia Forms: - Medication Reconciliation Form lidia - SBAR form lidia - Leadership Thank You Letter lidia Signatures: Dispatcher [employer] Emmanuel Garvin MD MD cha Lewis, Lynsay, RN RN ll1 Radha Luna PA-C PA-C sb4 Clarice Polanco rv1 David Peters MD MD sp4 Marlene Chavez, RN RN aa10 Corrections: (The following items were deleted from the chart) 10/15 19:20 19:20 BASIC METABOLIC PANEL+C.LAB.BRZ ordered. EDMS EDMS 19:20 19:20 CBC+H.LAB.BRZ ordered. EDMS EDMS 19:20 19:20 HEPATIC FUNCTION+C.LAB.BRZ ordered. EDMS EDMS 19:20 19:20 MAGNESIUM+C.LAB.BRZ ordered. EDMS EDMS 19:20 19:20 PROBNP+C.LAB.BRZ ordered. EDMS EDMS 19:20 19:20 PROTIME (+INR)+COAG.LAB.BRZ ordered. EDMS EDMS 19:20 19:20 Troponin High Sensitivity+C.LAB.BRZ ordered. EDMS EDMS 19:20 19:20 Urinalysis+U.LAB.BRZ ordered. EDMS EDMS 19:34 19:30 NS 0.9% IV 500 ml 500 ml IV at 1 bolus once; to be given as a bolus over 30 lidia minutes ordered. lidia 20:18 19:35 NS 0.9% IV (30 ml/kg) 30 ml/kg IV at bolus once; Sepsis Protocol; to be given as lidia a bolus over 90 minutes ordered. lidia 21:29 20:46 NS 0.9% IV 500 ml 500 ml IV at 1 bolus once; to be given as a bolus over 30 sb4 minutes ordered. lidia 22:20 19:30 NS 0.9% IV 500 ml 500 ml IV at 125 ml/hr once ordered. lidia aa10 22:54 20:21 lidia rv1 23:22 23:22 Chest Single View+RAD.RAD.BRZ ordered. EDMS EDMS
--- NOTE | 2024-10-15 20:22 | ER ---
Nurse's Notes [facility] Name: Clare Oleary Age: 79 yrs Sex: Female : 1945 Arrival Date: 10/15/2024 Time: 18:40 Bed 2 Private MD: Diagnosis: Morbid (severe) obesity with alveolar hypoventilation;Dyspnea;Hypoxemia;COPD/ Chronic obstructive pulmonary disease with (acute) exacerbation;Chronic combined systolic (congestive) and diastolic (congestive) heart failure;Chronic kidney disease, unspecified;Presence of cardiac pacemaker;Elevated white blood cell count;Non ST elevation [place] Presentation: 10/15 18:49 Chief complaint: Patient states: Still SOB after being discharged from upstairs about 2 ll1 hours ago. EMS states: 88% with very long oxygen tubing. tachy 110, 157/82. 10 L NRB up to 94%. Coronavirus screen: Client denies travel out of the [place] in the last 14 days. difficulty breathing, shortness of breath, Client presents with at least one sign or symptom that may indicate coronavirus-19. Standard/surgical mask placed on the client. Ebola Screen: Patient denies travel to an Ebola-affected area in the 21 days before illness onset. Initial Sepsis Screen: Does the patient meet any 2 criteria? No. Patient's initial sepsis screen is negative. Does the patient have a suspected source of infection? No. Patient's initial sepsis screen is negative. Risk Assessment: Do you want to hurt yourself or someone else? Patient reports no desire to harm self or others. Onset of symptoms was October 15, 2024. 18:49 Method Of Arrival: EMS: [facility] ll1 18:49 Acuity: JUNE 2 ll1 Triage Assessment: 18:54 General: Appears uncomfortable, Behavior is calm, cooperative, appropriate for age. ll1 Pain: Denies pain. Respiratory: Reports shortness of breath at rest Onset: The symptoms/episode began/occurred today. 10/16 01:23 Respiratory: br2 Historical: - Allergies: 10/15 18:48 Codeine; ll1 18:48 hydrochlorothiazide; ll1 18:48 maxide; ll1 18:48 Triamterene; ll1 - PMHx: 18:48 Congestive heart failure; diabetes mellitus; Gastroesophageal reflux disease; ll1 Hyperlipidemia (Unknown); Hypertensive disorder; Hypothyroidism; - PSHx: 18:48 Coronary Angioplasty; Coronary artery bypass graft; pacemaker; ll1 - Immunization history:: Adult Immunizations up to date. - Infectious Disease History:: Denies. - Social history:: Smoking status: unknown. Screenin:04 [facility] ED Fall Risk Assessment (Adult) History of falling in the last 3 months, aa10 including since admission No falls in past 3 months (0 pts) Confusion or Disorientation No (0 pts) Intoxicated or Sedated No (0 pts) Impaired Gait No (0 pts) Mobility Assist Device Used No (0 pt) Altered Elimination No (0 pt) Score/Fall Risk Level 3 or more points = High Risk Oriented to surroundings, Maintained a safe environment, Educated pt \T\ family on fall prevention, incl call for assistance when getting out of bed, Assessed \T\ reinforced patient's understanding of fall precautions, Provided non-skid footwear, Hourly rounding (assess needs \T\ fall precautionary measures) done, Used ambulatory aids as needed (educated on \T\ assisted with). Abuse screen: Denies threats or abuse. Denies injuries from another. Nutritional screening: No deficits noted. Tuberculosis screening: No symptoms or risk factors identified. Assessment: 19:04 General: Appears in no apparent distress. uncomfortable, obese, well developed, aa10 Behavior is calm, cooperative, appropriate for age, Reports SOB. Neuro: No deficits noted. Level of Consciousness is awake, alert, obeys commands, Oriented to person, place, time, situation, Appropriate for age Speech is normal. Cardiovascular: No deficits noted. Capillary refill < 3 seconds. Cardiovascular: Rhythm is sinus tachycardia. Respiratory: Airway is patent Respiratory effort is labored, Breath sounds are clear bilaterally. 23:59 Reassessment: Patient appears in no apparent distress at this time. No changes from aa10 previously documented assessment. Patient and/or family updated on plan of care and expected duration. Pain level reassessed. Patient is alert, oriented x 3, equal unlabored respirations, skin warm/dry/pink. Vital Signs: 19:08 BP 113 / 65; Pulse 106 MON; Resp 24 S; Pulse Ox 93% on 10 lpm Non-rebreather mask; aa10 23:05 BP 118 / 101 LA Supine (/lg); Pulse 94; Resp 20 S; Temp 97.7(O); Pulse Ox 90% on 2 lpm aa10 NC; 19:08 Sinus tachycardia aa10 ED Course: 18:46 Arm band placed on Patient placed in an exam room, on a stretcher. ll1 18:48 Patient arrived in ED. ll1 18:50 Emmanuel Reyna MD is Attending Physician. lidia 18:51 Triage completed. ll1 18:54 Norm Garcia, RN is Primary Nurse. ll1 19:00 Report given to retail shift leader RN. ll1 19:04 Patient has correct armband on for positive identification. Allergy band placed. Fall aa10 risk band placed. Placed in gown. Bed in low position. Call light in reach. Side rails up X2. Provided Education on: Educated on plan of care. 20:19 [facility] MD is Hospitalizing Provider. lidia 20:27 XRAY Chest (1 view) In Process Unspecified. EDMS 20:34 Son requesting updates. Ashkan Oleary [phone]. rv1 20:37 Inserted saline lock: 22 gauge in right hand, using aseptic technique. Blood collected. br2 Flushed with 10 mL NS. 22:18 Lactate w/ 2H reflex if indic. Sent. aa10 22:28 Urine Culture Sent. br2 23:42 Blood Culture Adult (2) Sent. aa10 23:55 Accessed PICC line. using ,sterile technique, per hospital protocol. Clean \T\ dry. aa10 Dressing intact. Good blood return. Flushes easily. . 10/16 01:22 No provider procedures requiring assistance completed. Patient admitted, IV remains in br2 place. Administered Medications: 10/15 19:34 CANCELLED (Duplicate Order): ns 0.9% 500 ml 500 ml IV at 1 bolus once; to be given as a lidia bolus over 30 minutes 20:18 CANCELLED (Duplicate Order): ns 0.9% (30 ml/kg) 30 ml/kg IV at bolus once; Sepsis lidia Protocol; to be given as a bolus over 90 minutes 21:29 CANCELLED (Physician Discretion): ns 0.9% 500 ml 500 ml IV at 1 bolus once; to be given sb4 as a bolus over 30 minutes 21:31 Drug: Magnesium Sulfate IVPB 1 grams IVPB once over 1 hrs Route: IVPB; Infused Over: 1 aa10 hrs; Site: right forearm; 23:42 Follow up: Response: No adverse reaction; Marked relief of symptoms aa10 23:57 Follow up: IV Status: Completed infusion; IV Intake: 100ml aa10 21:31 Drug: Aspirin PO Chewable Tablet 81 mg PO once Route: PO; aa10 23:41 Follow up: Response: No adverse reaction; Marked relief of symptoms aa10 21:31 Drug: Clopidogrel PO 75 mg PO once Route: PO; aa10 23:32 Follow up: Response: No adverse reaction aa10 21:31 Drug: Enoxaparin Sub-Q 100 mg Sub-Q once Route: Sub-Q; Site: abdomen; aa10 23:31 Follow up: Response: No adverse reaction aa10 22:18 Drug: MethylPrednisoLONE IVP 125 mg IVP once Route: IVP; Site: right forearm; aa10 23:39 Follow up: Response: No adverse reaction; Marked relief of symptoms aa10 22:18 Drug: Famotidine IVP 20 mg IVP once; dilute with 10 mL 0.9% NaCl; give over 2 minutes aa10 Route: IVP; Site: right forearm; 23:39 Follow up: Response: No adverse reaction aa10 22:19 Drug: Levalbuterol Inhalation 2.5 mg Inhalation once Route: Inhalation; aa10 23:40 Follow up: Response: No adverse reaction; Marked relief of symptoms aa10 22:19 Drug: Ipratropium Inhalation Aerosol 0.5 mg Inhalation once Route: Inhalation; aa10 23:40 Follow up: Response: No adverse reaction; Marked relief of symptoms aa10 22:20 CANCELLED (Physician Discretion): ns 0.9% 500 ml 500 ml IV at 125 ml/hr once aa10 23:46 Drug: levofloxacin IVPB 500 mg 100 ml IVPB once over 60 mins Volume: 100 ml; Route: aa10 IVPB; Infused Over: 60 mins; Site: right jugular; 10/16 01:07 Follow up: IV Status: Completed infusion aa10 01:07 Follow up: Response: No adverse reaction; Marked relief of symptoms aa10 Medication: 10/15 19:04 VIS not applicable for this client. aa10 Intake: 23:57 IV: 100ml; Total: 100ml. aa10 Outcome: 20:21 Decision to Hospitalize by Provider. [facility] 10/16 01:22 Admitted to Med/surg accompanied by tech, via stretcher, room 204, br2 Admitted to Condition: improved Instructed on the need for admit, 01:23 Patient left the ED. br2 Signatures: Dispatcher [employer] EDEmmanuel Thomason MD MD cha Lewis, Lynsay, RN RN ll1 Clarice Polanco rv1 Adriana Toth RN RN br2 Marlene Chavez RN RN Radha Jim PA-C sb4 Corrections: (The following items were deleted from the chart) 00:10/15 22:00 BP 132 / 75; Pulse 151bpm; Resp 18bpm; Pulse Ox 96% 3 lpm Nasal Cannula; br2br2 10/16 00:10/15 22:46 BP 152 / 87; Pulse 86bpm; Resp 22bpm; Pulse Ox 96% 3 lpm Nasal Cannula; br2 br2 10/16 00:32 10/15 22:46 BP 134 / 78; Pulse 80bpm; Resp 18bpm; Pulse Ox 98% 3 lpm Nasal Cannula; br2 br2
[2024-10-15 20:30] LABS: Absolute Eosinophils 0.1 K/uL (0-0.5); Absolute Lymphocytes (CBC) 0.7 K/uL (0.7-4.9); Absolute Monocytes 2.3 K/uL (0.1-1.3); Absolute Neutrophil 14.1 K/uL (1.8-8.0); Basophils % 0.2 % (0-1.3); Eosinophils % 0.5 % (0-4.4); Hematocrit 50.4 % (36.0-45.0); Hemoglobin 14.6 g/dL (12.0-15.0); Lymphocytes % 4.2 % (15.3-44.8); MCH 26.8 pg (27.0-35.0); MCV 92.4 fL (80-100); MPV 10.2 fL (7.6-11.3); Monocytes % 13.2 % (3.3-12.3); Neutrophils % 81.9 % (41.7-73.7); Platelets 172 thou/uL (152-406); RBC Red Blood Cell Count 5.46 M/uL (3.86-4.86); Red Cell Distribution Width 17.6 % (12.1-15.2)
[2024-10-15 20:33] LABS: PT Prothrombin Time 12.3 SECONDS (9.4-12.5); Protime INR 1.1
[2024-10-15] MEDS ORDERED: FAMOTIDINE 20 MG/2 ML VIAL IV ONE (20:49)
[2024-10-15] MEDS ORDERED: IPRATROPIUM BROM 0.5MG/2.5ML ONE (20:49)
[2024-10-15] MEDS ORDERED: METHYLPREDNISOLONE 125 MG INJ ONE (20:49)
[2024-10-15] MEDS ORDERED: LEVALBUTEROL 1.25 MG/3 ML NEB ONE (20:49)
[2024-10-15] MEDS ORDERED: NA CHLORIDE 0.9% 500 ML ONE ×2 (20:50→21:26)
[2024-10-15 20:52] LABS: Albumin 3.4 g/dL (3.4-5.0); Albumin/Globulin Ratio 1.1 (1.1-1.8); Anion Gap 9.1 mEq/L (5.0-15.0); Bilirubin Direct 0.2 mg/dL (0-0.2); Bilirubin Indirect, Calculated 0.4 mg/dL (0.2-0.8); Bilirubin Total 0.6 mg/dL (0.2-1.0); Globulin 3.2 g/dL (2.3-3.5); Magnesium 1.8 mg/dL (1.6-2.4); Potassium 4.1 mEq/L (3.5-5.1); Protein, Total 6.6 g/dL (6.4-8.2)
[2024-10-15 20:54] LABS: Troponin High Sensitivity 175.1 pg/mL (<58.9)
--- NOTE | 2024-10-15 21:12 | RAD REPORT ---
Procedure: Chest Single View HISTORY: Cough COMPARISON: August 2024 FINDINGS: Patient is in a poor degree of inspiration. Pulmonary vascular congestion present. No significant pleural effusion noted. The heart is mildly enlarged. Post surgical changes involve the chest. Pacemaker leads in place. IMPRESSION: Pulmonary vascular congestion
[2024-10-15] MEDS ORDERED: IPRATROPIUM BROM 0.5MG/2.5ML NEB PRN (21:13)
[2024-10-15] MEDS ORDERED: ALBUTEROL 2.5 MG/3 ML NEB SOL NEB PRN (21:13)
[2024-10-15] MEDS ORDERED: ONDANSETRON 4 MG/2 ML VIAL IV PRN (21:13)
--- NOTE | 2024-10-15 21:13 | P.HP ---
Certification for Inpatient Patient admitted to: Inpatient With expected LOS: >2 Midnights Practitioner: I am a practitioner with admitting privileges, knowledge of patient current condition, hospital course, and medical plan of care. Services: Services provided to patient in accordance with Admission requirements found in Title 42 Section 412.3 of the Code of Federal Regulations Patient History Date of Service: 10/16/24 Reason for admission: SOB History of Present Illness: 79 yrs old Female with history of chronic diastolic congestive heart failure, diabetes mellitus type 2, hypothyroidism, COPD, hypertension, hyperlipidemia history of coronary Angioplasty; Coronary artery bypass graft; pacemaker; presents to ER with complaints of Shortness Of Breath. The patient has shortness of breath at rest, with light activity. The patient's shortness of breath is aggravated by coughing, light activity. Associated with non-productive cough. The patient was just discharged from the hospital where she was admitted with altered mental status and possible to rule out CVA Patient was found to be hypoxic and had to be placed on oxygen support The patient is being admitted for further management Allergies codeine [Codeine] Allergy (Severe, Verified 04/10/17 11:24) Nausea/Vomiting hydrochlorothiazide [From Maxzide] Allergy (Severe, Verified 04/10/17 11:24) Anaphylaxis triamterene [From Maxzide] Allergy (Severe, Verified 04/10/17 11:24) Anaphylaxis maxide Allergy (Severe, Uncoded 04/10/17 11:24) Anaphylaxis Home medications list reviewed: Yes Home Medications: Allopurinol 300 mg PO DAILY 08/21/24 Levothyroxine [Synthroid*] 112 mcg PO [id number] 08/21/24 Rosuvastatin Calcium [Crestor] 20 mg PO DAILY 08/21/24 Sertraline [Zoloft*] 100 mg PO DAILY 08/21/24 Pantoprazole [Protonix Tab*] 40 mg PO DAILY tab 09/04/24 Spironolactone [Aldactone*] 25 mg PO DAILY tab 09/04/24 acetaZOLAMIDE [Acetazolamide] 250 mg PO DAILY #30 tab 09/04/24 Albuterol Neb [Proventil 0.083% Neb Soln] 2.5 mg NEB [id number] PRN amp 09/18/24 Ipratropium Neb [Atrovent*] 0.5 mg NEB [id number] PRN amp 09/18/24 Nystatin Powder [Mycostatin (Powder)*] 1 appl TOP BID #1 bottle 09/18/24 Omeprazole 20 mg PO DAILY 10/08/24 Aspirin [Aspirin EC 81 MG] 81 mg PO DAILY #30 tab 10/15/24 Clopidogrel Bisulfate [Plavix*] 75 mg PO DAILY #30 tab 10/15/24 - Past Medical/Surgical History Diabetic: Yes Past Medical History: Reviewed- Non-Contributory -: HTN -: Hypothyroid -: Hyperlipidemia -: CHF -: DM Past Surgical History: Reviewed- Non-Contributory -: R total knee -: Reaux-Y bypass -: ACL repair 1979 -: Tonsillectomy -: aortic dissection repair 06/2019 -: pacemaker -: CABG Psychosocial/ Personal History: Lives at home with family - Family History Family History: Reviewed- Non-Contributory - Family History Father -: Heart disease, Cancer Mother -: Cancer Sister -: Heart disease - Social History Smoking Status: Never smoker Alcohol use: No CD- Drugs: No Caffeine use: Yes Review of Systems 10-point ROS is otherwise unremarkable Physical Examination - Vital Signs Temperature: 97.8 F Blood Pressure: 112/60 Pulse: 106 Respirations: 24 Pulse Ox (%): 94 - Physical Exam General: Alert, Mild distress HEENT: Atraumatic, Normocephalic Neck: Supple, No LAD Respiratory: Normal air movement, Crackles/rales, Expiratory wheezes Cardiovascular: Normal S1 S2, Other (Tachycardia) Capillary refill: <2 Seconds Gastrointestinal: Soft and benign, W/out hepatosplenomegaly Musculoskeletal: No clubbing, No swelling Integumentary: No rashes Neurological: Normal speech, Other (Alert awake) Lymphatics: No axilla or inguinal lymphadenopathy - Studies Laboratory Data (last 24 hrs) 10/15/24 10/15/24 10/15/24 20:22 20:22 20:22 WBC 17.20 H Hgb 14.6 Hct 50.4 H Plt Count 172 PT 12.3 INR 1.10 Sodium 136 Potassium 4.1 BUN 22 H Creatinine 1.07 H Glucose 159 H Magnesium 1.8 Total Bilirubin 0.6 AST 29 ALT 23 Alkaline Phosphatase 67 Assessment and Plan - Plan NSTEMI Will trend cardiac enzymes Will monitor telemetry Started on aspirin and statin EKG did not show any acute changes suggestive of ischemia Patient denies any chest pain Cardiology consult Acute on chronic CHF possibly diastolic Monitor closely on telemetry Started on aggressive diuresis X-ray findings consistent with CHF Titrate as needed Recent echocardiogram showed normal EF Acute hypoxic hypercapnic respiratory failure On oxygen support Monitor closely ABG findings noted Oxygen supplementation Will try to wean down oxygen requirement Continue home medications Leukocytosis UTI Started on IV antibiotic Monitor closely GI/DVT prophylaxis Advanced directive full code Discharge Plan: [facility] Plan to discharge in: 48 Hours - Advance Directives Does patient have a Living Will: No Does patient have a Durable POA for Healthcare: No - Code Status/Comfort Care Code Status: Full Code Time Spent Managing Pts Care (In Minutes): 48
[2024-10-15] MEDS ORDERED: CLOPIDOGREL 75 MG TABLET ONE (21:25)
[2024-10-15] MEDS ORDERED: ASPIRIN 81 MG CHEWABLE TABLET ONE (21:25)
[2024-10-15] MEDS ORDERED: ENOXAPARIN 100 MG/ML SYR SQ ONE (21:25)
[2024-10-15] MEDS ORDERED: MAGNESIUM SULFATE 1 gm IVPB 1 GM/100 ML BAG IV ONE (21:26)
[2024-10-15 21:30] LABS: Specific Gravity 1.012 (1.005-1.030); Urine Bacteria <20 /HPF (<20); Urine Bilirubin NEGATIVE (Negative); Urine Blood 3+ (OVER) (Negative); Urine Clarity Extremely Turbid (Clear); Urine Color Light-Orange (Yellow); Urine Crystals Unidentified Few /HPF (None Seen); Urine Culture Reflex Order REFLEXED; Urine Glucose NEGATIVE (Negative); Urine Ketones NEGATIVE (Negative); Urine Microscopic Reflex YN ORDER UMIC; Urine Mucus Slight /HPF (None Seen); Urine Nitrite NEGATIVE (Negative); Urine Protein 2+ (Negative); Urine RBC >50 /HPF (None Seen); Urine Urobilinogen 1+ (Normal); Urine WBC >50 /HPF (<5); Urine Yeast (Budding) Occasional /HPF (None Seen)
[2024-10-15 22:36] LABS: Arterial Blood Carboxyhemoglob 0.7 % (0-1.5); Blood Gas Oxyhemoglobin 49.8 % (94-97); Blood Gas THB 14.8 g/dl (12-18)
[2024-10-15] MEDS ORDERED: Levofloxacin500mg IV 500 MG/100 ML BAG IV ONE (23:46)
[2024-10-16] MEDS ORDERED: IPRATROPIUM BROM 0.5MG/2.5ML NEB PRN (00:24)
[2024-10-16] MEDS ORDERED: ALBUTEROL 2.5 MG/3 ML NEB SOL NEB PRN (00:24)
--- NOTE | 2024-10-16 01:22 | RAD REPORT ---
EXAM: XR Chest, 1 View CLINICAL HISTORY: The patient is 79 years old and is Female; central line placement TECHNIQUE: Frontal view of the chest. COMPARISON: No relevant prior studies available. FINDINGS: LUNGS: There are low lung volumes. Bibasilar opacities are noted. Prominence of the pulmonary vas culature is present. PLEURAL SPACE: Unremarkable. No pneumothorax. HEART: The cardiac silhouette appears enlarged. MEDIASTINUM: Unremarkable. Normal mediastinal contour. BONES/JOINTS: Degenerative change of the shoulders and spine is noted. No acute fracture. VASCULATURE: An aortic endograft is noted. TUBES, LINES AND DEVICES: A right IJ central venous catheter is present with the tip at the SVC/R A junction. A left-sided pacemaker is noted. UPPER ABDOMEN: Unremarkable as visualized. IMPRESSION: 1. A right IJ central venous catheter is present with the tip at the SVC/RA junction. 2. Low lung volumes with vascular congestion and bibasilar atelectasis. Electronically signed by: Roro Maki MD 10/16/2024 12:08 AM [facility] Due to temporary technical issues with the PACS/Wipit reporting system, reports are being gus d by the in-house radiologist without review as a courtesy to ensure prompt reporting the interpreting radiologist is fully responsible for the content of the report. Transcribed Date/Time: 10/16/2024 1:21 AM
[2024-10-16] MEDS: FUROSEMIDE 20 MG/ 2ML VIAL IV SCH (02:08)
[2024-10-16] MEDS: CEFTRIAXONE 1,000 MG in NA CHLORIDE 0.9% 50 ML IVPB SCH (03:08)
[2024-10-16] MEDS: HEPARIN 5000 UNIT/ML 1 ML VIAL IV SCH (03:13)
[2024-10-16] MEDS: HEPARIN IV PRN (03:14)
[2024-10-16] MEDS: DEXTROSE IV PRN (03:14)
[2024-10-16 06:18] LABS: Absolute Lymphocytes (CBC) 0.4 K/uL (0.7-4.9); Absolute Monocytes 0.2 K/uL (0.1-1.3); Absolute Neutrophil 6.6 K/uL (1.8-8.0); Basophils % 0.3 % (0-1.3); Hematocrit 47.3 % (36.0-45.0); Hemoglobin 14.5 g/dL (12.0-15.0); Lymphocytes % 5.1 % (15.3-44.8); MCH 28.1 pg (27.0-35.0); MCHC 30.6 g/dL (32.0-36.0); MCV 91.9 fL (80-100); MPV 9.9 fL (7.6-11.3); Monocytes % 2.1 % (3.3-12.3); Neutrophils % 92.5 % (41.7-73.7); Nucleated Red Blood Cells % 0.1 % (0-0); Platelets 192 thou/uL (152-406); RBC Red Blood Cell Count 5.15 M/uL (3.86-4.86); Red Cell Distribution Width 16.6 % (12.1-15.2)
[2024-10-16 06:39] LABS: Albumin 3.4 g/dL (3.4-5.0); Anion Gap 9.8 mEq/L (5.0-15.0); Bilirubin Total 0.5 mg/dL (0.2-1.0); Globulin 3.3 g/dL (2.3-3.5); Potassium 4.8 mEq/L (3.5-5.1); Protein, Total 6.7 g/dL (6.4-8.2)
[2024-10-16 06:41] LABS: Troponin High Sensitivity 434.8 pg/mL (<58.9)
--- NOTE | 2024-10-16 07:11 | P.PN ---
Subjective Date of Service: 10/16/24 Chief Complaint: SOB With elevated troponin, started on heparin drip reports shortness of breath with exertion family unable to care for patient, she was disharged and home and return to ED same evening, no acute distress noted <Thao Guy - Last Filed: 10/16/24 15:12> Date of Service: 10/16/24 <Dinesh Camacho - Last Filed: 10/22/24 05:32> Review of Systems 10-point ROS is otherwise unremarkable General: As per HPI <Thao Guy - Last Filed: 10/16/24 15:12> Physical Examination - Vital Signs Temperature: 97.8 F Blood Pressure: 112/60 Pulse: 106 Respirations: 24 Pulse Ox (%): 94 - Physical Exam General: Alert, In no apparent distress, Confused, Obese HEENT: Atraumatic, Normocephalic Neck: Supple, 2+ carotid pulse no bruit Respiratory: Diminished, Other (equal, unlabored) Cardiovascular: Normal pulses, Regular rate/rhythm, Normal S1 S2 Capillary refill: <2 Seconds Gastrointestinal: Normal bowel sounds, Soft and benign, Other (morbid obesity) Musculoskeletal: Other (total care, max assist, ) Integumentary: No breakdown, No significant lesion Neurological: Normal speech, Cranial nerves 3-12 intact, Normal reflexes 2+, Dementia - Studies Laboratory Data (last 24 hrs) 10/15/24 10/15/24 10/15/24 20:22 20:22 20:22 WBC 17.20 H Hgb 14.6 Hct 50.4 H Plt Count 172 PT 12.3 INR 1.10 Sodium 136 Potassium 4.1 BUN 22 H Creatinine 1.07 H Glucose 159 H Magnesium 1.8 Total Bilirubin 0.6 AST 29 ALT 23 Alkaline Phosphatase 67 <Thao Guy - Last Filed: 10/16/24 15:12> Assessment And Plan - Plan NSTEMI heparin gtt, no chest pain Will trend cardiac enzymes Started on aspirin and statin EKG did not show any acute changes suggestive of ischemia Patient denies any chest pain Cardiology consult recently discharged on plavix, asa ECHO 10/03/24 COMMENTS: 1. NORMAL LEFT VENTRICULAR SYSTOLIC FUNCTION. LEFT VENTRICULAR EJECTION FRACTION 55-60%. NORMAL DIASTOLIC FUNCTION. 2. MODERATE TRICUSPID REGURGITATION. 3. MODERATE PULMONARY HYPERTENSION. RIGHT VENTRICULAR SYSTOLIC PRESSURE 50-55 mmHg. 4. ELEVATED FILLING PRESSURE. RIGHT ATRIAL PRESSURE 15-20 mmHg. Acute on chronic CHF possibly diastolic Monitor closely on telemetry Started on aggressive diuresis X-ray findings consistent with CHF Titrate as needed Recent echocardiogram showed normal EF Acute hypoxic hypercapnic respiratory failure dependance home [address] Low lung volumes with vascular congestion and bibasilar atelectasis.1. A right IJ central venous catheter is present with the tip at the SVC/RA junction On oxygen support Monitor closely ABG findings noted Oxygen supplementation Will try to wean down oxygen requirement Continue home medications Cystitis with hematuria Leukocytosis UTI Started on IV antibiotic Monitor closely Urine cultures pending, blood cultures pending GI/DVT prophylaxis Discharge Plan: Shelter Plan to discharge in: 48 Hours - Advance Directives Does patient have a Living Will: No Does patient have a Durable POA for Healthcare: No Discharge Plan: Shelter Critical Care: No Time Spent Managing PTS Care (In Minutes): 35 <Thao Guy - Last Filed: 10/16/24 15:12> Date of Service: 10/16/24 Chart has been reviewed. Events of the last 24 hours have been noted. Case discussed with [facility]. I performed a substantial part of the MDM during this patient's care today. I personally made or approved the documented management plan and acknowledge its risk of complications. I agree with the findings and documentation provided in the [facility]OWER's notes <Dinesh Camacho - Last Filed: 10/22/24 05:32>
[2024-10-16 09:33] LABS: Platelet Estimate ADEQ; White Blood Cell Scan OK (OK)
[2024-10-16 09:34] LABS: Anisocytosis SLIGHT; Blood Morphology Comment NOTED (NOT SEEN)
[2024-10-16] MEDS: LEVOTHYROXINE SOD 0.112 MG TAB PO SCH (10:38)
[2024-10-16] MEDS: ASPIRIN EC 81 MG TAB PO SCH (10:38)
[2024-10-16] MEDS: acetaZOLAMIDE 250 MG TAB PO SCH (10:38)
[2024-10-16] MEDS: allopurinoL 300 MG TAB PO SCH (10:38)
[2024-10-16] MEDS: CLOPIDOGREL 75 MG TABLET PO SCH (10:38)
[2024-10-16] MEDS: ACETAMINOPHEN 325 MG TABLET PO PRN (13:07)
[2024-10-16] MEDS ORDERED: MELATONIN 5 MG TABLET PO PRN (18:41)
[2024-10-16] MEDS: clonazePAM 0.5 MG TAB PO SCH (21:18)
[2024-10-17 06:30] LABS: MPV 9.9 fL (7.6-11.3); Platelets 208 thou/uL (152-406)
[2024-10-17 06:51] LABS: Albumin 3.3 g/dL (3.4-5.0); Anion Gap 6.5 mEq/L (5.0-15.0); Magnesium 2.1 mg/dL (1.6-2.4); Potassium 3.5 mEq/L (3.5-5.1)
[2024-10-17 06:57] LABS: Troponin High Sensitivity 189.4 pg/mL (<58.9)
--- NOTE | 2024-10-17 08:28 | RAD REPORT ---
EXAMINATION: ONE VIEW CHEST XR CLINICAL INDICATION: Female, 79 years old.,pneumonia TECHNIQUE: Frontal chest projection is submitted. Examination is limited by patient positioning and t echnique. COMPARISON: 10/15/2024 FINDINGS: Reduced inspiratory effort again noted. Right IJ CVC unchanged in position. Perihilar interstitial op acities, mildly improved. Bibasilar patchy airspace opacities are otherwise stable. No pneumothorax. Likely right small to moderate effusion is stable. The heart is normal in size. Mediast inal contours are unchanged, with sequelae of the ascending aorta stent graft. Left pacer/AICD in place. IMPRESSION: Improvement of central interstitial prominence, which may reflect improving central congestion.
[2024-10-17] MEDS: POTASSIUM 25 MEQ EFFERV TAB PO ONE (09:42)
--- NOTE | 2024-10-17 15:34 | P.PN ---
Date of Service: 10/17/24 Subjective Chief Complaint: SOB reports Shortness of breath, worse with exertion, 93% on room air Review of Systems 10-point ROS is otherwise unremarkable General: As per HPI Physical Examination - Vital Signs reviewed - Physical Exam General: Alert, x2 In no apparent distress, Obese HEENT: Atraumatic, Normocephalic Neck: Supple, 2+ carotid pulse no bruit Respiratory: Diminished, Other (equal, unlabored) Cardiovascular: Normal pulses, Regular rate/rhythm, Normal S1 S2 Capillary refill: <2 Seconds Gastrointestinal: Normal bowel sounds, Soft and benign, Other (morbid obesity) Musculoskeletal: Other (total care, max assist, ) Integumentary: No breakdown, No significant lesion Neurological: Normal speech, Cranial nerves 3-12 intact, Normal reflexes Assessment And Plan - Plan NSTEMI no reported chest pain cardiac enzymes 188, 189 no chest pain Started on aspirin and statin, urine drip discontinued EKG did not show any acute changes suggestive of ischemia Cardiology consult recently discharged on plavix, asa ECHO 10/03/24 COMMENTS: 1. NORMAL LEFT VENTRICULAR SYSTOLIC FUNCTION. LEFT VENTRICULAR EJECTION FRACTION 55-60%. NORMAL DIASTOLIC FUNCTION. 2. MODERATE TRICUSPID REGURGITATION. 3. MODERATE PULMONARY HYPERTENSION. RIGHT VENTRICULAR SYSTOLIC PRESSURE 50-55 mmHg. 4. ELEVATED FILLING PRESSURE. RIGHT ATRIAL PRESSURE 15-20 mmHg. Acute on chronic CHF possibly diastolic Paced rhythm Monitor closely on telemetry Started on aggressive diuresis X-ray findings consistent with CHF Titrate as needed Recent echocardiogram showed normal EF Acute hypoxic hypercapnic respiratory failure dependance home [address] Low lung volumes with vascular congestion and bibasilar atelectasis.1. A right IJ central venous catheter is present with the tip at the SVC/RA junction On oxygen support Monitor closely ABG findings noted Oxygen supplementation Will try to wean down oxygen requirement Continue home medications acute cystitis with hematuria Leukocytosis UTI Started on IV antibiotic Monitor closely Urine 4+ GM rods, blood cultures no growth at 24 hours GI/DVT prophylaxis Discharge Plan: Jail Plan to discharge in: 48 Hours - Advance Directives Does patient have a Living Will: No Does patient have a Durable POA for Healthcare: No Time with Patient 25 minutes <Thao Guy - Last Filed: 10/17/24 15:11> Chart has been reviewed. Events of the last 24 hours have been noted. Case d iscussed with [facility]. I performed a substantial part of the MDM during this patient's care today. I personally made or approved the documented management plan and acknowledge its risk of complications. I agree with the findings and documentation provided in the [facility]'s notes <Dinesh Camacho - Last Filed: 10/22/24 05:33>
--- NOTE | 2024-10-17 16:17 | P.CNS ---
Date of Consult: 10/17/24 Chief Complaint: SOB History of Present Illness: Patient with PMH of heart failure preserved EF, pacemaker placement presented with worsening SOB, lower extremities swelling, denies chest pain, no syncope. Allergies codeine [Codeine] Allergy (Severe, Verified 04/10/17 11:24) Nausea/Vomiting hydrochlorothiazide [From Maxzide] Allergy (Severe, Verified 04/10/17 11:24) Anaphylaxis triamterene [From Maxzide] Allergy (Severe, Verified 04/10/17 11:24) Anaphylaxis maxide Allergy (Severe, Uncoded 04/10/17 11:24) Anaphylaxis Home medications list reviewed: Yes Home Medications: Allopurinol 300 mg PO DAILY 08/21/24 Levothyroxine [Synthroid*] 112 mcg PO [id number] 08/21/24 Rosuvastatin Calcium [Crestor] 20 mg PO DAILY 08/21/24 Sertraline [Zoloft*] 100 mg PO DAILY 08/21/24 Pantoprazole [Protonix Tab*] 40 mg PO DAILY tab 09/04/24 Spironolactone [Aldactone*] 25 mg PO DAILY tab 09/04/24 acetaZOLAMIDE [Acetazolamide] 250 mg PO DAILY #30 tab 09/04/24 Albuterol Neb [Proventil 0.083% Neb Soln] 2.5 mg NEB [id number] PRN amp 09/18/24 Ipratropium Neb [Atrovent*] 0.5 mg NEB [id number] PRN amp 09/18/24 Nystatin Powder [Mycostatin (Powder)*] 1 appl TOP BID #1 bottle 09/18/24 Omeprazole 20 mg PO DAILY 10/08/24 Aspirin [Aspirin EC 81 MG] 81 mg PO DAILY #30 tab 10/15/24 Clopidogrel Bisulfate [Plavix*] 75 mg PO DAILY #30 tab 10/15/24 - Past Medical/Surgical History Diabetic: Yes -: HTN -: Hypothyroid -: Hyperlipidemia -: CHF -: DM -: R total knee -: Reaux-Y bypass -: ACL repair 1979 -: Tonsillectomy -: aortic dissection repair 06/2019 -: pacemaker -: CABG Psychosocial/ Personal History: Lives at home with family - Family History Father Medical History: Heart disease, Cancer Mother Medical History: Cancer Sister Medical History: Heart disease - Social History Smoking Status: Unknown if ever smoked Alcohol use: No CD- Drugs: No Caffeine use: Yes Place of Residence: Home Review of Systems 10-point ROS is otherwise unremarkable Physical Examination Temp Pulse Resp BP Pulse Ox 97.4 F 102 H 12 116/71 96 10/17/24 12:00 10/17/24 12:00 10/17/24 12:00 10/17/24 12:00 10/17/24 12:00 General: Alert, In no apparent distress HEENT: Atraumatic, PERRLA, Mucous membr. moist/pink, EOMI, Sclerae nonicteric Neck: Supple, 2+ carotid pulse no bruit, No LAD, Without JVD or thyroid abnormality Respiratory: Clear to auscultation bilaterally, Normal air movement Cardiovascular: Regular rate/rhythm, Normal S1 S2 Gastrointestinal: Normal bowel sounds, No tenderness Musculoskeletal: No tenderness Integumentary: No rashes Neurological: Normal gait, Normal speech, Normal tone, Normal affect Lymphatics: No axilla or inguinal lymphadenopathy - Problems (1) Acute on chronic diastolic heart failure Current Visit: No Status: Acute Plan: agree with diuresis with IV lasix continue to monitor input and output recommend starting coreg 3.125 mg po BID (2) HTN (hypertension) Current Visit: No Status: Acute Plan: start coreg 3.125 mg po BID continue to monitor (3) NSTEMI (non-ST elevated myocardial infarction) Current Visit: No Status: Acute Plan: patient troponin trending down, most likely type 2 [place] from heart failure exacerbation. Patient functional status is very poor, would recommend medical management. continue ASA and Plavix and statin
[2024-10-18 04:09] LABS: Absolute Basophils 0.2 K/uL (0-0.5); Absolute Eosinophils 0.4 K/uL (0-0.5); Absolute Lymphocytes (CBC) 0.8 K/uL (0.7-4.9); Absolute Monocytes 1.6 K/uL (0.1-1.3); Basophils % 1.8 % (0-1.3); Eosinophils % 4.3 % (0-4.4); Hematocrit 45.3 % (36.0-45.0); Hemoglobin 13.7 g/dL (12.0-15.0); Lymphocytes % 9.4 % (15.3-44.8); MCH 27.5 pg (27.0-35.0); MCHC 30.2 g/dL (32.0-36.0); MCV 91.1 fL (80-100); MPV 9.6 fL (7.6-11.3); Monocytes % 17.8 % (3.3-12.3); Neutrophils % 66.7 % (41.7-73.7); Nucleated RBC Absolute Count 0.1 (0-0); Nucleated Red Blood Cells % 0.9 % (0-0); Platelets 191 thou/uL (152-406); RBC Red Blood Cell Count 4.98 M/uL (3.86-4.86); Red Cell Distribution Width 16.8 % (12.1-15.2)
[2024-10-18 04:28] LABS: Albumin 3.2 g/dL (3.4-5.0); Anion Gap 6.5 mEq/L (5.0-15.0); Phosphorus 3.2 mg/dL (2.5-4.9); Potassium 3.5 mEq/L (3.5-5.1)
[2024-10-18 05:41] VITALS: BMI 48.7
[2024-10-18] MEDS: POTASSIUM 25 MEQ EFFERV TAB PO ONE (10:01)
[2024-10-18] MEDS: CEFDINIR 300 MG CAP PO SCH (10:02)
--- NOTE | 2024-10-18 13:42 | EKG ---
Test Date: 2024-10-15 Test Time: 20:03:46 Director Intelligence Analysis Programs: HUY MEASUREMENT RESULTS: Intervals: Rate: 101 GA: 194 QRSD: 156 QT: 402 QTc: 521 [place]: P: 25 GA: 194 QRS: -57 T: 107 INTERPRETIVE STATEMENTS: Atrial-sensed ventricular-paced rhythm Abnormal ECG Compared to ECG 10/08/2024 12:45:55 No significant changes Electronically Signed On 10-18-24 13:37:34 [employer] by Chad Hartmann
[2024-10-19 05:44] LABS: MPV 10.1 fL (7.6-11.3); Platelets 177 thou/uL (152-406)
[2024-10-19 05:54] LABS: Anion Gap 5.2 mEq/L (5.0-15.0); Potassium 3.2 mEq/L (3.5-5.1)
--- NOTE | 2024-10-19 06:34 | P.PN ---
Date of Service: 10/18/24 Subjective Chief Complaint: SOB prn an antianxiety meds given for sleep, Review of Systems 10-point ROS is otherwise unremarkable General: As per HPI Physical Examination - Vital Signs reviewed - Physical Exam General: Alert, x2 intermittent confusion, In no apparent distress, Obese HEENT: Atraumatic, Normocephalic Neck: Supple, 2+ carotid pulse no bruit Respiratory: Diminished, Other (equal, unlabored) Cardiovascular: Normal pulses, Regular rate/rhythm, Normal S1 S2 Capillary refill: <2 Seconds Gastrointestinal: Normal bowel sounds, Soft and benign, Other (morbid obesity) Musculoskeletal: Other (total care, max assist, ) Integumentary: No breakdown, No significant lesion Neurological: Normal speech, Cranial nerves 3-12 intact, Normal reflexes Assessment And Plan - Plan NSTEMI MA type II no reported chest pain cardiac enzymes 188, 189 no chest pain Started on aspirin and statin, urine drip discontinued EKG did not show any acute changes suggestive of ischemia Cardiology consult recently discharged on plavix, asa statin, ECHO 10/03/24 COMMENTS: 1. NORMAL LEFT VENTRICULAR SYSTOLIC FUNCTION. LEFT VENTRICULAR EJECTION FRACTION 55-60%. NORMAL DIASTOLIC FUNCTION. 2. MODERATE TRICUSPID REGURGITATION. 3. MODERATE PULMONARY HYPERTENSION. RIGHT VENTRICULAR SYSTOLIC PRESSURE 50-55 mmHg. 4. ELEVATED FILLING PRESSURE. RIGHT ATRIAL PRESSURE 15-20 mmHg. Acute on chronic CHF possibly diastolic Paced rhythm Monitor closely on telemetry Started on aggressive diuresis X-ray findings consistent with CHF Titrate as needed Recent echocardiogram showed normal EH Acute hypoxic hypercapnic respiratory failure dependance home [address] Low lung volumes with vascular congestion and bibasilar atelectasis.1. A right IJ central venous catheter is present with the tip at the SVC/RA junction On oxygen support Monitor closely ABG findings noted Oxygen supplementation Will try to wean down oxygen requirement Continue home medications blood cultures, no growth acute cystitis with hematuria Leukocytosis UTI urine culture Klebsiella pneumoniae, Proteus mirabilis on p.o. cefdinir Started on IV antibiotic Monitor closely Urine 4+ GM rods, blood cultures no growth at 24 hours GI/DVT prophylaxis Discharge Plan: Prison Plan to discharge in: 48 Hours - Advance Directives Does patient have a Living Will: No Does patient have a Durable POA for Healthcare: No Time with Patient 25 minutes <Thao Guy - Last Filed: 10/19/24 06:34> Chart has been reviewed. Events of the last 24 hours have been noted. Case discussed with [facility]. I performed a substantial part of the MDM during this patient's care today. I personally made or approved the documented management plan and acknowledge its risk of complications. I agree with the findings and documentation provided in the [facility]'s notes <Dinesh Camacho - Last Filed: 10/22/24 05:33>
--- NOTE | 2024-10-19 06:40 | P.DS ---
Admission Date: 10/15/24 Discharge Date: 10/19/24 Reason for Admission: SOB Brief History of Present Illness: 79 yrs old Female with history of chronic diastolic congestive heart failure, diabetes mellitus type 2, hypothyroidism, COPD, hypertension, hyperlipidemia history of coronary Angioplasty; Coronary artery bypass graft; pacemaker; presents to ER with complaints of Shortness Of Breath. The patient has shortness of breath at rest, with light activity. The patient's shortness of breath is aggravated by coughing, light activity. Associated with non-productive cough. The patient was just discharged from the hospital where she was admitted with altered mental status and possible to rule out CVA Patient was found to be hypoxic and had to be placed on oxygen support The patient is being admitted for further management - Physical Exam General: Alert, no acute distress noted HEENT: Atraumatic, Normocephalic Neck: Supple, No LAD Respiratory: Normal air movement, unlabored Cardiovascular: Normal S1 S2, Other (Tachycardia) Capillary refill: <2 Seconds Gastrointestinal: Soft and benign, W/out hepatosplenomegaly Musculoskeletal: No clubbing, No swelling Integumentary: No rashes Neurological: Normal speech, Other (Alert awake) Lymphatics: No axilla or inguinal lymphadenopathy Hospital Course: 79 yrs old Female with history of chronic diastolic congestive heart failure, diabetes mellitus type 2, hypothyroidism, COPD, hypertension, hyperlipidemia history of coronary Angioplasty; Coronary artery bypass graft; pacemaker; presents to ER with complaints of Shortness Of Breath. The patient has shortness of breath at rest, with light activity. The patient's shortness of breath is aggravated by coughing, light activity. Associated with non-productive cough. Ms. Oleary is a return admission for uncontrolled anxiety, NSTEMI, ME type II elevated troponin, was seen by cardiology for inpatient, acute on chronic heart failure, was treated with diuresis. Is on oxygen support for hypoxia. Leukocytosis was noted to have acute urinary tract infection, treated with p.o. cefdinir. She is tolerating diet, plan to discharge home, with home health with home O2 at discharge. Follow-up with PCP, call office for appointment Assessment NSTEMI ME type II no reported chest pain seen by cardiology, discharged home on aspirin Plavix and statin, ECHO 10/03/24 COMMENTS: 1. NORMAL LEFT VENTRICULAR SYSTOLIC FUNCTION. LEFT VENTRICULAR EJECTION FRACTION 55-60%. NORMAL DIASTOLIC FUNCTION. 2. MODERATE TRICUSPID REGURGITATION. 3. MODERATE PULMONARY HYPERTENSION. RIGHT VENTRICULAR SYSTOLIC PRESSURE 50-55 mmHg. 4. ELEVATED FILLING PRESSURE. RIGHT ATRIAL PRESSURE 15-20 mmHg. Acute on chronic CHF possibly diastolic Paced rhythm treated with diuresis, cardiology was consulted Acute hypoxic hypercapnic respiratory failure dependance home 02 treated with oxygen, diuresis, acute cystitis with hematuria Leukocytosis-treated p.o. cefdinir outpatient Chronic indwelling Franklin catheter Urine 4+ GM rods, blood cultures no growth at 24 hours UTI urine culture Klebsiella pneumoniae, Proteus mirabilis on p.o. cefdinir Continue home medicines as previously prescribed GOAL: Clear understanding of disease process INSTRUCTIONS: Physician Discharge Instructions: -Follow-up with cardiology after the -Follow-up with PCP in 1 to 2 weeks -Please call Dr. Camacho at [phone] if any questions regarding hospital stay -Please call nursing station at [phone] if any nursing or medication questions -Return to the emergency room if symptoms worsen Diet: ADA, low sodium Activity: Fall precautions <Thao Guy - Last Filed: 10/21/24 12:12> Admission Date: 10/15/24 Discharge Date: 10/19/24 Hospital Course: Chart has been reviewed. Events of the last 24 hours have been noted. Case discussed with [facility]. I performed a substantial part of the MDM during this patient's care today. I personally made or approved the documented management plan and acknowledge its risk of complications. I agree with the findings and documentation provided in the FLOWER's notes <Dinesh Camacho - Last Filed: 10/22/24 05:34> Disposition: ROUTINE DISCHARGE Discharge Condition: GOOD Vital Signs/Physical Exam: Temp Pulse Resp BP Pulse Ox 98.6 F 92 H 20 140/69 96 10/19/24 04:00 10/19/24 04:00 10/19/24 04:00 10/19/24 04:00 10/19/24 04:00 Laboratory Data at Discharge: WBC 8.90 thou/uL (4.3-10.9) 10/18/24 03:50 Hgb 13.7 g/dL (12.0-15.0) 10/18/24 03:50 Hct 45.3 % (36.0-45.0) H 10/18/24 03:50 Plt Count 177 thou/uL (152-406) 10/19/24 05:20 PT 12.3 SECONDS (9.4-12.5) 10/15/24 20:22 INR 1.10 10/15/24 20:22 APTT 29.6 SECONDS (24.3-36.9) 10/18/24 03:50 Sodium 138 mEq/L (136-145) 10/19/24 05:20 Potassium 3.2 mEq/L (3.5-5.1) L 10/19/24 05:20 BUN 25 mg/dL (7-18) H 10/19/24 05:20 Creatinine 0.93 mg/dL (0.55-1.02) 10/19/24 05:20 Glucose 115 mg/dL (74-106) H 10/19/24 05:20 Phosphorus 4.0 mg/dL (2.5-4.9) 10/19/24 05:20 Magnesium 2.1 mg/dL (1.6-2.4) 10/17/24 06:06 Total Bilirubin 0.5 mg/dL (0.2-1.0) 10/16/24 06:06 AST 23 U/L (15-37) 10/16/24 06:06 ALT 22 U/L (13-56) 10/16/24 06:06 Alkaline Phosphatase 65 U/L (45-117) 10/16/24 06:06 <Thao Guy - Last Filed: 10/21/24 12:12> Vital Signs/Physical Exam: Temp Pulse Resp BP Pulse Ox 98.8 F 104 H 16 133/63 91 10/19/24 16:00 10/19/24 16:00 10/19/24 16:00 10/19/24 16:00 10/19/24 16:00 Laboratory Data at Discharge: WBC 8.90 thou/uL (4.3-10.9) 10/18/24 03:50 Hgb 13.7 g/dL (12.0-15.0) 10/18/24 03:50 Hct 45.3 % (36.0-45.0) H 10/18/24 03:50 Plt Count 177 thou/uL (152-406) 10/19/24 05:20 PT 12.3 SECONDS (9.4-12.5) 10/15/24 20:22 INR 1.10 10/15/24 20:22 APTT 29.6 SECONDS (24.3-36.9) 10/18/24 03:50 Sodium 138 mEq/L (136-145) 10/19/24 05:20 Potassium Cancelled 10/19/24 14:00 BUN 25 mg/dL (7-18) H 10/19/24 05:20 Creatinine 0.93 mg/dL (0.55-1.02) 10/19/24 05:20 Glucose 115 mg/dL (74-106) H 10/19/24 05:20 Phosphorus 4.0 mg/dL (2.5-4.9) 10/19/24 05:20 Magnesium 2.1 mg/dL (1.6-2.4) 10/17/24 06:06 Total Bilirubin 0.5 mg/dL (0.2-1.0) 10/16/24 06:06 AST 23 U/L (15-37) 10/16/24 06:06 ALT 22 U/L (13-56) 10/16/24 06:06 Alkaline Phosphatase 65 U/L (45-117) 10/16/24 06:06 <Dinesh Camacho - Last Filed: 10/22/24 05:34> Diet: Low sodium Activity: Fall precautions Time spent managing pt's care (in minutes): 45 <Thao Guy - Last Filed: 10/21/24 12:12> <Dinesh Camacho - Last Filed: 10/22/24 05:34> Home Medications: Allopurinol 300 mg PO DAILY 08/21/24 Levothyroxine [Synthroid*] 112 mcg PO [id number] 08/21/24 Rosuvastatin Calcium [Crestor] 20 mg PO DAILY 08/21/24 Sertraline [Zoloft*] 100 mg PO DAILY 08/21/24 Pantoprazole [Protonix Tab*] 40 mg PO DAILY tab 09/04/24 Spironolactone [Aldactone*] 25 mg PO DAILY tab 09/04/24 acetaZOLAMIDE [Acetazolamide] 250 mg PO DAILY #30 tab 09/04/24 Ipratropium Neb [Atrovent*] 0.5 mg NEB [id number] PRN amp 09/18/24 Nystatin Powder [Mycostatin (Powder)*] 1 appl TOP BID #1 bottle 09/18/24 Aspirin [Aspirin EC 81 MG] 81 mg PO DAILY #30 tab 10/15/24 Clopidogrel Bisulfate [Plavix*] 75 mg PO DAILY #30 tab 10/15/24 Albuterol Neb [Proventil 0.083% Neb Soln] 2.5 mg NEB [id number] PRN #60 amp 10/19/24 Cefdinir [Cefdinir*] 300 mg PO BIDWM #14 cap 10/19/24 Furosemide 40 mg PO DAILY #30 tab 10/19/24 Ipratropium Neb [Atrovent*] 0.5 mg NEB [id number] PRN #60 amp 10/19/24 Melatonin 5 mg PO BEDTIME PRN PRN #30 10/19/24 Melatonin [Melatonin*] 6 mg PO BEDTIME PRN #60 tablet 10/19/24 Potassium Chloride 10 meq PO M,W,F #15 tab 10/19/24 clonazePAM [Klonopin] 0.5 mg PO TID #60 tab 10/19/24 New Medications: Ipratropium Neb [Atrovent*] 0.5 mg NEB [id number] PRN #60 amp PRN Reason: Shortness Of Breath Cefdinir [Cefdinir*] 300 mg PO BIDWM #14 cap Furosemide 40 mg PO DAILY #30 tab clonazePAM [Klonopin] 0.5 mg PO TID #60 tab Melatonin 5 mg PO BEDTIME PRN PRN #30 PRN Reason: Insomnia Melatonin [Melatonin*] 6 mg PO BEDTIME PRN #60 tablet PRN Reason: Insomnia Potassium Chloride 10 meq PO M,W,F #15 tab Albuterol Neb [Proventil 0.083% Neb Soln] 2.5 mg NEB [id number] PRN #60 amp PRN Reason: Shortness Of Breath Physician Discharge Instructions: 79 yrs old Female with history of chronic diastolic congestive heart failure, diabetes mellitus type 2, hypothyroidism, COPD, hypertension, hyperlipidemia history of coronary Angioplasty; Coronary artery bypass graft; pacemaker; presents to ER with complaints of Shortness Of Breath. The patient has shortness of breath at rest, with light activity. The patient's shortness of breath is aggravated by coughing, light activity. Associated with non-productive cough. Ms. Oleary is a return admission for uncontrolled anxiety, NSTEMI, ME type II elevated troponin, was seen by cardiology for inpatient, acute on chronic heart failure, was treated with diuresis. Is on oxygen support for hypoxia. Leukocytosis was noted to have acute urinary tract infection, treated with p.o. cefdinir. She is tolerating diet, plan to discharge home, with home health with home O2 at discharge. Follow-up with PCP, call office for appointment Assessment NSTEMI ME type II no reported chest pain seen by cardiology, discharged home on aspirin Plavix and statin, ECHO 10/03/24 COMMENTS: 1. NORMAL LEFT VENTRICULAR SYSTOLIC FUNCTION. LEFT VENTRICULAR EJECTION FRACTION 55-60%. NORMAL DIASTOLIC FUNCTION. 2. MODERATE TRICUSPID REGURGITATION. 3. MODERATE PULMONARY HYPERTENSION. RIGHT VENTRICULAR SYSTOLIC PRESSURE 50-55 mmHg. 4. ELEVATED FILLING PRESSURE. RIGHT ATRIAL PRESSURE 15-20 mmHg. Acute on chronic CHF possibly diastolic Paced rhythm treated with diuresis, cardiology was consulted Acute hypoxic hypercapnic respiratory failure dependance home 02 treated with oxygen, diuresis, Acute cystitis with hematuria Leukocytosis treated p.o. cefdinir outpatient Chronic indwelling Franklin catheter Urine 4+ GM rods, blood cultures no growth at 24 hours UTI urine culture Klebsiella pneumoniae, Proteus mirabilis on p.o. cefdinir Continue home medicines as previously prescribed GOAL: Clear understanding of disease process INSTRUCTIONS: Physician Discharge Instructions: -Follow-up with cardiology after the -Follow-up with PCP in 1 to 2 weeks -Please call Dr. Camacho at [phone] if any questions regarding hospital stay -Follow-up with Cardiology in 2 to 4 weeks -Follow-up with Pulmonary in 2 to 4 weeks -Follow-up with Nephrology in 2 to 4 weeks -Follow-up with with Urology for bladder retention; -Please call nursing station at [phone] if any nursing or medication questions -Return to the emergency room if symptoms worsen Diet: ADA, low sodium Activity: Fall precautions Followup: ARTIS SMITH [Primary Care Provider] -
[2024-10-19] MEDS: POTASSIUM 25 MEQ EFFERV TAB PO ONE (08:02)
[2024-10-19 17:52] VITALS: BP 133/63; TEMP 98.8
[2024-10-19 20:34] VITALS: O2SAT 91
== END 2024-10-19 20:00 | disposition home or self-care (01) | DRG 280 ==
LOC: ER 18:40 → ERHOLD 21:13 → 2ND 23:22
PROVIDERS: ADMIT Family Medicine; ATTEND Hospitalist
PROC: 02HV33Z Insertion of Infusion Device into Superior Vena Cava, Percutaneous Approach (ICD-10-PCS; principal; 2024-10-15)
DX: I13.0 Hypertensive heart and chronic kidney disease with heart failure and stage 1 through stage 4 chronic kidney disease, or unspecified chronic kidney disease (principal); I50.33 Acute on chronic diastolic (congestive) heart failure; I21.A1 Myocardial infarction type 2; J96.01 Acute respiratory failure with hypoxia; J96.02 Acute respiratory failure with hypercapnia; J44.1 Chronic obstructive pulmonary disease with (acute) exacerbation; E66.2 Morbid (severe) obesity with alveolar hypoventilation; Z68.42 Body mass index [BMI] 45.0-49.9, adult; N30.01 Acute cystitis with hematuria; N18.9 Chronic kidney disease, unspecified; E11.22 Type 2 diabetes mellitus with diabetic chronic kidney disease; N30.91 Cystitis, unspecified with hematuria; E03.9 Hypothyroidism, unspecified; E78.5 Hyperlipidemia, unspecified; K21.9 Gastro-esophageal reflux disease without esophagitis; F03.90 Unspecified dementia, unspecified severity, without behavioral disturbance, psychotic disturbance, mood disturbance, and anxiety; B96.1 Klebsiella pneumoniae [K. pneumoniae] as the cause of diseases classified elsewhere; B96.4 Proteus (mirabilis) (morganii) as the cause of diseases classified elsewhere; Z88.5 Allergy status to narcotic agent; Z95.0 Presence of cardiac pacemaker; Z95.1 Presence of aortocoronary bypass graft; Z88.8 Allergy status to other drugs, medicaments and biological substances; Z79.82 Long term (current) use of aspirin; Z99.81 Dependence on supplemental oxygen; Z79.02 Long term (current) use of antithrombotics/antiplatelets; Z79.890 Hormone replacement therapy; Z79.899 Other long term (current) drug therapy
CPT/HCPCS: 36415; 36556; 71045; 80048; 80053; 80069; 80076; 81001; 82805; 82947; 83605; 83735; 83880; 84484; 85025; 85049; 85610; 85730; 87040; 87077; 87086; 87088; 87186; 87205; 93005; 94760; 96372; 97161; 97530; 99285; J0696; J1644; J1650; J1940; J2919; J3475; J7040; J7614; J7644

== ENCOUNTER 2024-11-27 20:34 | Emergency (ER) | payer OTHER ==
--- NOTE | 2024-11-27 21:28 | RAD REPORT ---
EXAM: CT brain without contrast HISTORY: PAIN COMPARISON: 10/08/2024 TECHNIQUE: Multiple contiguous axial images were obtained and a CT of the brain without contrast. Sag ittal and coronal reformats were performed. FINDINGS: No evidence of hydrocephalus, intracranial hemorrhage, or extra-axial fluid collection. Left centrum semiovale bowel focus of mild hypoattenuation is stable, could reflect a focus of remote ischemia. Diffuse mild brain atrophy with mild periventricular and deep white matter chronic microvascular ischemic changes, stable. The calvarium is intact. The visualized paranasal sinuses are well-aerated. Mastoid air cells show pa tchy opacification bilaterally IMPRESSION: No evidence of acute intracranial abnormality. Stable findings as above. EXAM: CT of the cervical spine without contrast HISTORY: PAIN COMPARISON: None TECHNIQUE: Multiple contiguous axial images were obtained in a CT of the cervical spine without contr ast. Sagittal and coronal reformats were performed. FINDINGS: The vertebral bodies demonstrate normal height and alignment. No evidence of acute fracture or subluxation.. No degenerative changes are present. No prevertebral soft tissue swelling is seen. The posterior facets are well aligned. Normal alignment of the skull base with the cervical spine is seen. The lung apices are unremarkable. IMPRESSION: No evidence of acute osseous abnormality of the cervical spine.
--- NOTE | 2024-11-27 21:43 | RAD REPORT ---
EXAM: XR Knee Right 3 View HISTORY: [facility] MAIN PAIN Bed Name: 21 COMPARISON: None TECHNIQUE: 3 views of the right knee were obtained. FINDINGS: No knee effusion is seen. Right total knee arthroplasty hardware in place, with no evidence of complications. No significant degenerative changes are seen. Moderate soft tissue fullness in the suprapatellar space, nonspecific. IMPRESSION: No evidence of acute osseous abnormality. Right total knee arthroplasty
--- NOTE | 2024-11-27 22:17 | RAD REPORT ---
EXAMINATION: CT PELVIS WITHOUT CONTRAST CLINICAL INDICATION: Female, 79 years old.[facility] MAIN PAIN Bed Name: 21 TECHNIQUE: CT pelvis was performed, without IV contrast, as per department protocol. Axial, sagittal and coronal reconstructions were obtained. One or more of the following dose reduction techniques were used: Automated exposure control, adjustment of the mA and/or kV according to patient size, and/ or iterative reconstruction. Unless otherwise specified, incidental findings do not require dedicated imaging follow-up. COMPARISON: No prior exam. FINDINGS: The lack of intravenous contrast limits the sensitivity of this exam for evaluation of solid visceral organs, vascular structures, and retroperitoneum. MUSCULOSKELETAL: No acute or suspicious osseous abnormality. Left total hip arthroplasty in place wit h resulting streak artifact. Chronic degenerative changes of the lower lumbar spine, with multilevel mild anterolisthesis of L4 over L5 and L5-S1. Disc height loss. Vacuum phenomenon along th e disc spaces and facet articulations at these levels. Moderate central canal stenosis at L4-5 with moderate to severe bilateral neural foraminal narrowing. Bilateral foraminal stenosis at L5-S1 as wel l. URINARY SYSTEM: No abnormalities of the included kidneys and ureters. Urinary bladder is unremarkable . GASTROINTESTINAL TRACT: Included small bowel is normal in caliber. No wall thickening or bowel inflam matory changes. LYMPH NODES: No lymphadenopathy. ABDOMINAL AORTA AND OTHER VESSELS: Normal caliber aorta and IVC. ADDITIONAL FINDINGS: Left periumbilical lobulated fat-containing hernia.. IMPRESSION: No acute abnormalities of the bony pelvis. Evaluation limited by lack of IV contrast. Advanced degenerative changes at L4-5 and L5-S1 as described above.
--- NOTE | 2024-11-27 22:23 | EDPHYS ---
Physician Documentation [facility] Name: Clare Oleary Age: 79 yrs Sex: Female : 1945 Arrival Date: 11/27/2024 Time: 20:34 Bed 21 Private MD: ED Physician Clarence Michael HPI: 11/27 23:18 This 79 yrs old Female presents to ER via EMS with complaints of Fall Injury. 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 States she stood up from the toilet and lost her balance causing her to fall. Reports she did hit her head, but denies LOC. States she is on a blood thinner, but not sure which one. . Historical: - Allergies: 22:24 Codeine; cm10 22:24 hydrochlorothiazide; cm10 22:24 maxide; cm10 22:24 Triamterene; cm10 - PMHx: 22:24 Congestive heart failure; diabetes mellitus; Gastroesophageal reflux disease; cm10 Hyperlipidemia (Unknown); Hypertensive disorder; Hypothyroidism; - PSHx: 22:24 Coronary Angioplasty; Coronary artery bypass graft; pacemaker; cm10 - Immunization history:: Adult Immunizations up to date. - Infectious Disease History:: Denies. - Social history:: Smoking status: unknown. ROS: 23:17 Constitutional: As per HPI kb Exam: 23:17 Constitutional: This is a well developed, well nourished patient who is awake, alert, kb and in no acute distress. Head/Face: Normocephalic, atraumatic. ENT: Moist Mucous membranes Chest/axilla: Normal chest wall appearance and motion. Cardiovascular: Regular rate Respiratory: Respirations even and unlabored. No increased work of breathing. Talking in full sentences Abdomen/GI: Soft, non-tender. No distention Skin: Warm, dry with normal turgor. Normal color. Neuro: Awake and alert, GCS 15, oriented to person, place, time, and situation. 23:17 Neck: External neck: tenderness, that is mild, of the left trapezius, lower cervical area and right trapezius, 23:17 Back: pain, that is moderate, of the sacrum, 23:17 Musculoskeletal/extremity: Extremities: grossly normal except: noted in the right knee: pain, tenderness, ROM: no acute changes, Circulation is intact in all extremities. Sensation intact. Vital Signs: 22:29 BP 123 / 58; Pulse 96; Resp 18; Pulse Ox 93% on 4 lpm NC; cm10 MDM: 20:42 Medical Screening Exam initiated kb 23:19 Differential diagnosis: closed head injury, contusion, fracture. Data reviewed: vital kb signs, nurses notes. Historians other than the Patient: EMS: [facility]. Counseling: I had a detailed discussion with the patient and/or guardian regarding the historical points, exam findings, and any diagnostic results supporting the discharge/admit diagnosis, radiology results, the need for outpatient follow up, a family practitioner, to return to the emergency department if symptoms worsen or persist or if there are any questions or concerns that arise at home. 11/27 20:46 Order name: CT Head C Spine; Complete Time: 21:28 kb 11/27 20:46 Order name: CT Pelvis wo Cont; Complete Time: 22:19 kb 11/27 20:46 Order name: Knee Right 3 View XRAY; Complete Time: 21:45 kb Administered Medications: No medications were administered Disposition: 23:34 Co-signature as Attending Physician, Clarence Michael MD I reviewed the patient's care rn provided by the Advanced Practice Provider and agree with the diagnosis and treatment plan. Disposition Summary: 11/27/24 22:22 Discharge Ordered Notes: Location: Home kb Condition: Stable kb Diagnosis - Fall on same level, unspecified kb - Unspecified injury of head, initial encounter kb - Pain in right knee kb - Low back pain kb Followup: kb - With: Emergency Department - When: As needed - Reason: Worsening of condition Followup: kb - With: Private Physician - When: 2 - 3 days - Reason: Recheck today's complaints, Continuance of care, Re-evaluation by your physician Discharge Instructions: - Discharge Summary Sheet kb - Musculoskeletal Pain kb - Fall Prevention in the Home, Adult, [id number] kb Forms: - Medication Reconciliation Form kb - Antibiotic Education kb - Prescription Opioid Use kb - Patient Portal Instructions kb - Leadership Thank You Letter kb Signatures: Dispatcher [employer] Alisha Veras, NICKOLASC GAURI-Clarence Hayes MD MD rn Martinez, Clarissa, RN RN cm10
--- NOTE | 2024-11-27 22:31 | ER ---
Nurse's Notes [facility] Name: Clare Oleary Age: 79 yrs Sex: Female : 1945 Arrival Date: 11/27/2024 Time: 20:34 Bed 21 Private MD: Diagnosis: Fall on same level, unspecified;Unspecified injury of head, initial encounter;Pain in right knee;Low back pain Presentation: 11/27 22:22 Chief complaint: EMS states: Called to patients home due to patient having a fall. Pt cm10 states that she was using the restroom, she got up lost her balance and fell. Pt reports hitting head, no LOC. Pt on an unknown blood thinner. Coronavirus screen: Client denies travel out of the [place] in the last 14 days. Ebola Screen: Patient denies travel to an Ebola-affected area in the 21 days before illness onset. Initial Sepsis Screen: Does the patient meet any 2 criteria? No. Patient's initial sepsis screen is negative. Does the patient have a suspected source of infection? No. Patient's initial sepsis screen is negative. Risk Assessment: Do you want to hurt yourself or someone else? Patient reports no desire to harm self or others. Onset of symptoms was November 27, 2024. 22:22 Method Of Arrival: EMS: [facility] cm10 22:22 Acuity: JUNE 3 cm10 Triage Assessment: 22:24 General: Appears in no apparent distress. comfortable, Behavior is calm, cooperative. cm10 Neuro: No deficits noted. Level of Consciousness is awake, alert, obeys commands, Oriented to person, place, time, situation, Appropriate for age. Respiratory: No deficits noted. Airway is patent Respiratory effort is even, unlabored, Respiratory pattern is regular, symmetrical. 22:30 Pain: Complains of pain in Hip Pain currently is 4 out of 10 on a pain scale. cm10 Historical: - Allergies: 22:24 Codeine; cm10 22:24 hydrochlorothiazide; cm10 22:24 maxide; cm10 22:24 Triamterene; cm10 - PMHx: 22:24 Congestive heart failure; diabetes mellitus; Gastroesophageal reflux disease; cm10 Hyperlipidemia (Unknown); Hypertensive disorder; Hypothyroidism; - PSHx: 22:24 Coronary Angioplasty; Coronary artery bypass graft; pacemaker; cm10 - Immunization history:: Adult Immunizations up to date. - Infectious Disease History:: Denies. - Social history:: Smoking status: unknown. Screenin:24 [facility] ED Fall Risk Assessment (Adult) History of falling in the last 3 months, cm10 including since admission Yes- single mechanical fall (1 pt) Confusion or Disorientation No (0 pts) Intoxicated or Sedated No (0 pts) Impaired Gait Yes (1 pt) Mobility Assist Device Used Yes (1 pt) Altered Elimination No (0 pt) Score/Fall Risk Level 3 or more points = High Risk Oriented to surroundings, Maintained a safe environment, Hourly rounding (assess needs \T\ fall precautionary measures) done. Abuse screen: Denies threats or abuse. Denies injuries from another. Nutritional screening: No deficits noted. Tuberculosis screening: No symptoms or risk factors identified. Vital Signs: 22:29 BP 123 / 58; Pulse 96; Resp 18; Pulse Ox 93% on 4 lpm NC; cm10 ED Course: 20:34 Patient arrived in ED. [id number] 20:41 Alisha Ellison FNP-C is PHCP. kb 20:41 Clarence Michael MD is Attending Physician. kb 21:08 CT Head C Spine In Process Unspecified. EDMS 21:11 CT Pelvis wo Cont In Process Unspecified. EDMS 21:19 Knee Right 3 View XRAY In Process Unspecified. EDMS 22:23 Triage completed. cm10 22:24 Arm band placed on right wrist. Patient placed in waiting room, on a stretcher. cm10 22:25 Patient has correct armband on for positive identification. Provided Education on: cm10 Follow-up instructions. 22:25 No provider procedures requiring assistance completed. Patient did not have IV access cm10 during this emergency room visit. Administered Medications: No medications were administered Medication: 22:24 VIS not applicable for this client. cm10 Outcome: 22:22 Discharge ordered by . kb 22:29 Discharged to home via ambulance, cm10 22:29 Condition: good 22:29 Discharge instructions given to patient, Instructed on discharge instructions, follow up and referral plans. Demonstrated understanding of instructions, follow-up care, 22:30 Patient left the ED. cm10 Signatures: Dispatcher [employer] EDMS Alisha Ellison FNP-C FNP-Ckb Jeffries, Jennifer [email or web address] Angi Tellez, RN RN cm10
[2024-11-27 22:44] VITALS: BP 123/58; O2SAT 93
== END 2024-11-27 22:30 | disposition home or self-care (01) ==
LOC: ER 20:34
DX: S09.90XA Unspecified injury of head, initial encounter (principal); M25.561 Pain in right knee; M54.50 Low back pain, unspecified; W18.30XA Fall on same level, unspecified, initial encounter; Z95.1 Presence of aortocoronary bypass graft; Z95.0 Presence of cardiac pacemaker
CPT/HCPCS: 70450; 72125; 72192; 99283

== ENCOUNTER 2025-03-17 16:01 | Emergency (ER) | payer OTHER ==
--- NOTE | 2025-03-17 16:50 | RAD REPORT ---
Procedure: Chest Single View HISTORY: Cough COMPARISON: 2023 FINDINGS: Chronic elevation right hemidiaphragm Pacemaker leads in place. Aortic stent present. The lungs appear clear of acute infiltrate. No significant pleural effusion noted. The heart is normal size. IMPRESSION: No acute abnormality is displayed.
[2025-03-17 17:11] LABS: Absolute Basophils 0.1 K/uL (0-0.5); Absolute Eosinophils 0.2 K/uL (0-0.5); Absolute Lymphocytes (CBC) 2.8 K/uL (0.7-4.9); Absolute Monocytes 1.5 K/uL (0.1-1.3); Absolute Neutrophil 8.8 K/uL (1.8-8.0); Basophils % 1.1 % (0-1.3); Eosinophils % 1.7 % (0-4.4); Hematocrit 55.9 % (36.0-45.0); Hemoglobin 17.9 g/dL (12.0-15.0); Lymphocytes % 20.6 % (15.3-44.8); MCH 28.4 pg (27.0-35.0); MCV 88.6 fL (80-100); Monocytes % 11.4 % (3.3-12.3); Neutrophils % 65.2 % (41.7-73.7); Nucleated Red Blood Cells % 0.1 % (0-0); Platelets 167 thou/uL (152-406); RBC Red Blood Cell Count 6.31 M/uL (3.86-4.86); Red Cell Distribution Width 15.1 % (12.1-15.2)
[2025-03-17 17:51] LABS: PT Prothrombin Time 11.2 SECONDS (10-13.0); PTT, Activated Partial Thromb 28.2 SECONDS (27.2-37.4); Protime INR 0.98
[2025-03-17 17:55] LABS: Albumin 3.3 g/dL (3.4-5.0); Albumin/Globulin Ratio 0.7 (1.1-1.8); Anion Gap 12.6 mEq/L (5.0-15.0); Bilirubin Total 0.7 mg/dL (0.2-1.0); Globulin 4.5 g/dL (2.3-3.5); Protein, Total 7.8 g/dL (6.4-8.2); Troponin High Sensitivity 38.8 pg/mL (<58.9)
[2025-03-17 17:56] LABS: Potassium 4.6 mEq/L (3.5-5.1)
--- NOTE | 2025-03-17 18:20 | RAD REPORT ---
EXAMINATION: CT ABDOMEN AND PELVIS WITHOUT CONTRAST CLINICAL INDICATION: Hematuria TECHNIQUE: CT abdomen and pelvis was performed, as per department protocol. IV contrast and oral was not administered.Axial, sagittal and coronal reconstructions were obtained. One or more of the following dose reduction techniques were used: Automated exposure control, adjustment of the mA and/o r kV according to the patient size, and/or iterative reconstruction. Unless otherwise specified, incidental findings do not require dedicated imaging follow-up. [id number]. COMPARISON: 2014 FINDINGS: The lack of intravenous and oral contrast limits evaluation of solid organs, vessels and bowel. Calcified granulomas within the lung bases. Cholecystectomy. The liver, spleen, pancreas, and adrenals appear grossly normal. Multiple high density masses within the kidneys. They measure up to 1.3 cm. Small left renal cyst. Franklin catheter within the bladder. Normal appendix. Small ventral hernias containing fat. Atherosclerosis. 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 Calcification appears to result in a moderate stenosis proximal right renal artery No evidence of diverticulitis. Spondylosis lumbar spine results in spinal stenosis.. Left hip arthroplasty IMPRESSION: Multiple, small hypodensity masses within the kidneys most likely represent hemorrhagic or proteinace ous cysts. Nonemergent renal ultrasound recommended for further evaluation. Atherosclerosis as described above.
[2025-03-17] MEDS ORDERED: NA CHLORIDE 0.9% 500 ML ONE (18:47)
[2025-03-17] MEDS ORDERED: ACETAMINOPHEN 500 MG TAB ONE (18:47)
[2025-03-17] MEDS ORDERED: CEFTRIAXONE 2000 MG/VIAL ONE (18:47)
[2025-03-17 19:14] LABS: Specific Gravity 1.009 (1.005-1.030); Sqamous Epithelial None Seen /HPF (None Seen); Urine Bacteria 20-50 /HPF (<20); Urine Bilirubin NEGATIVE (Negative); Urine Blood 3+ (OVER) (Negative); Urine Clarity Extremely Turbid (Clear); Urine Color Red (Yellow); Urine Crystals Unidentified Many /HPF (None Seen); Urine Culture Reflex Order REFLEXED; Urine Glucose NEGATIVE (Negative); Urine Ketones NEGATIVE (Negative); Urine Microscopic Reflex YN ORDER UMIC; Urine Nitrite NEGATIVE (Negative); Urine Protein 3+ (Negative); Urine RBC >50 /HPF (None Seen); Urine Urobilinogen Normal (Normal); Urine pH 7.5 (5.0-7.0)
--- NOTE | 2025-03-17 22:38 | ER ---
Nurse's Notes [facility] Name: Clare Oleary Age: 80 yrs Sex: Female : 1945 Arrival Date: 03/17/2025 Time: 16:01 Bed 15 Private MD: Diagnosis: Hematuria, unspecified;UTI/ Urinary tract infection, site not specified Presentation: 03/17 16:14 Chief complaint: EMS states: pt arrived to room via [facility] from home, kn c/c: blood in urine while grandson was changing her. resp even and unlabored, pt is AAOx4. Coronavirus screen: At this time, the client does not indicate any symptoms associated with coronavirus-19. Ebola Screen: No symptoms or risks identified at this time. Initial Sepsis Screen: Does the patient meet any 2 criteria? No. Patient's initial sepsis screen is negative. Does the patient have a suspected source of infection? No. Patient's initial sepsis screen is negative. Risk Assessment: Do you want to hurt yourself or someone else? Patient reports no desire to harm self or others. Onset of symptoms was March 17, 2025. 16:14 Method Of Arrival: EMS: [facility] kn 16:14 Acuity: JUNE 3 kn Triage Assessment: 16:18 General: Appears in no apparent distress. comfortable, Behavior is calm, cooperative, kn appropriate for age. Pain: Denies pain. Historical: - PMHx: 18:42 Cerebrovascular accident; Diabetes mellitus; Hypertensive disorder; Myocardial kc6 infarction; Hypothyroidism; 18:42 Congestive heart failure; kc6 - Immunization history:: Adult Immunizations unknown. - Infectious Disease History:: Denies. - Social history:: Smoking status: Patient/guardian denies using tobacco. Screenin:45 [facility] ED Fall Risk Assessment (Adult) History of falling in the last 3 months, kc6 including since admission No falls in past 3 months (0 pts) Confusion or Disorientation No (0 pts) Intoxicated or Sedated No (0 pts) Impaired Gait Yes (1 pt) Mobility Assist Device Used Yes (1 pt) Altered Elimination No (0 pt) Score/Fall Risk Level 0 - 2 = Low Risk Oriented to surroundings. Abuse screen: Denies threats or abuse. Denies injuries from another. Nutritional screening: No deficits noted. Tuberculosis screening: No symptoms or risk factors identified. Assessment: 16:14 General: Appears in no apparent distress. comfortable, obese, well developed, Behavior kc6 is calm, cooperative, appropriate for age. Pain: Complains of pain in abdomen Pain does not radiate. Quality of pain is described as crampy, dull, Is continuous. Neuro: Level of Consciousness is awake, alert, obeys commands, Oriented to person, place, time, situation, Appropriate for age. Cardiovascular: Capillary refill < 3 seconds. Respiratory: Airway is patent Trachea midline Respiratory effort is even, unlabored, Respiratory pattern is regular, symmetrical. GI: Abdomen is round obese, Bowel sounds present X 4 quads. Abd is soft and non tender X 4 quads. Reports lower abdominal pain, cramping, Patient currently denies diarrhea, nausea, vomiting. : Reports bedwetting, cramping, discharge, bloody, incontinence, urgency, urinary frequency. EENT: No signs and/or symptoms were reported regarding the EENT system. Derm: Skin is healthy with good turgor, Skin is pink, warm \T\ dry. Decubitus located on sacrum approximately 2.6 cm to 7.5 cm is stage I has erythematous edges is draining none noted. Musculoskeletal: No signs and/or symptoms reported regarding the musculoskeletal system. Circulation, motion, and sensation intact. Range of motion: intact in all extremities. 17:14 Reassessment: Patient appears in no apparent distress at this time. No changes from kc6 previously documented assessment. Patient and/or family updated on plan of care and expected duration. Pain level reassessed. Patient is alert, oriented x 3, equal unlabored respirations, skin warm/dry/pink. 18:14 Reassessment: Patient appears in no apparent distress at this time. No changes from kc6 previously documented assessment. Patient and/or family updated on plan of care and expected duration. Pain level reassessed. Patient is alert, oriented x 3, equal unlabored respirations, skin warm/dry/pink. 20:30 Reassessment: additional 3000ml NS started, urine output dark red. km10 21:30 Reassessment: Patient appears in no apparent distress at this time. No changes from km10 previously documented assessment. 22:30 Reassessment: Patient appears in no apparent distress at this time. Patient states km10 symptoms have improved. 23:00 Reassessment: pt had BM, brief changed, pt cleaned and repositioned, comfort measures km10 provided. Vital Signs: 16:14 BP 111 / 70; Pulse 105; Resp 18; Temp 97.9; Pulse Ox 95% 4 lpm ; Weight 81.65 kg; kn Height 5 ft. 0 in. ; 16:18 BP 101 / 78; Pulse 104; Resp 20; Pulse Ox 100% 4 lpm ; kn 17:53 BP 111 / 65; Pulse 100; Resp 20 S; Pulse Ox 96% on 4 lpm NC; kc6 21:12 BP 135 / 85; Pulse 94; Resp 18; Pulse Ox 97% on R/A; km10 23:32 BP 140 / 93; Pulse 93; Resp 20; Temp 98.6(A); Pulse Ox 96% on 3 lpm NC; km10 16:14 Body Mass Index 35.15 (81.65 kg, 152.4 cm) kn Summers Coma Score: 23:32 Eye Response: spontaneous(4). Motor Response: obeys commands(6). Verbal Response: km10 oriented(5). Total: 15. ED Course: 16:13 Patient arrived in ED. kn 16:13 Nas Conde DO is Attending Physician. ms3 16:14 Patient has correct armband on for positive identification. Placed in gown. Bed in low kc6 position. Call light in reach. Side rails up X2. Adult w/ patient. person investigator on. Pulse ox on. NIBP on. Door closed. Noise minimized. Lights dimmed. Warm blanket given. Pillow given. Verbal reassurance given. 16:18 Triage completed. kn 16:18 Arm band placed on right wrist. kn 16:20 Melanie Cazares, RN is Primary Nurse. kc6 16:30 Repositioned patient. Cleaned of incontinence. Linen changed. kc6 16:38 CXR XRAY In Process Unspecified. EDMS 17:00 Initial lab(s) drawn, by ED staff, sent to lab. EKG done, by ED staff, reviewed by Daniel Avila MD. Inserted saline lock: 20 gauge in left forearm, using aseptic technique. Blood collected. Flushed with 10 mL NS. Oxygen administration via nasal cannula \T\ 4L/min. 17:33 Radiology exam delayed due to lab results not completed at this time. (BUN/Creatinine). jc4 17:35 Attending Physician role handed off by Nas Conde, rt 17:35 Daniel Avila MD is Attending Physician. rt 18:03 3-way catheter inserted, using sterile technique, 18 Fr. jl7 18:08 Abdomen In Process Unspecified. EDMS 18:41 UA Rfx Andre Cult if indicated Sent. kc6 18:41 Urine collected: Franklin catheter specimen, jimenez blood. kc6 19:00 Bladder irrigated via Franklin with 3L normal saline returned jimenez blood Patient kc6 tolerated well. 19:05 Report given to NOHEMI Sanders. kc6 21:13 Alisha Ellison, GAURI-C is [facility]. kb 22:32 initiated transfer with Gianna at [facility] \T\2100, Pt accepted by Dr. Centeno to [address] \T\2232. 23:34 Report given to Mikey SONG at [facility]. km10 Administered Medications: 19:02 Drug: NS 0.9% IV 500 ml 500 ml IV at 1 bolus once; to be given as a bolus over 30 kc6 minutes Volume: 500 ml; Route: IV; Rate: 1 bolus; Site: left forearm; 20:28 Drug: Rocephin IV 2 grams IV at calculated rate once; Given slow IV push per pharmarcy km10 instructions Route: IV; Rate: calculated rate; Site: left wrist; 22:49 Follow up: Response: No adverse reaction km10 20:29 Drug: Acetaminophen PO 1000 mg PO once Route: PO; km10 22:48 Follow up: Response: No adverse reaction; Pain is decreased km10 Intake: 21:22 dark red, with clots km10 21:22 bright red/orange urine km10 Output: 21:22 Urine: 3400ml (Franklin); Total: 3400ml. km10 21:22 Urine: 2000ml (Franklin); Total: 5400ml. km10 21:22 dark red, with clots km10 21:22 bright red/orange urine km10 Outcome: 22:38 ER care complete, transfer ordered by . kb 23:35 Transferred by ground EMS to [facility], Transfer form completed. km10 X-rays sent w/ patient. 23:35 Condition: stable 23:35 Instructed on the need for transfer, Demonstrated understanding of instructions, 23:35 Patient left the ED. km10 Signatures: Dispatcher [employer] EDMS Alisha Ellison, SANDING MACHINE TENDER AUTOMATIC-C SANDING MACHINE TENDER AUTOMATIC-CkEtta Liz, RN RN jl7 Nas Conde, DO FLANAGAN ms3 Melanie Cazares, RN RN kc6 Daniel Avila MD MD rt Clarice Polanco rv1 OSWALD MONROE RN RN Lebron Cross jc4 Marilyn Moore RN RN km10 Corrections: (The following items were deleted from the chart) 16:19 16:18 PMHx: Hypertensive disorder; [facility] 16:19 16:18 PMHx: diabetes mellitus; [facility] 16:19 16:18 PMHx: Congestive heart failure; [facility] 16:19 16:18 PMHx: Hyperlipidemia (Unknown); [facility] 16:19 16:18 PMHx: Gastroesophageal reflux disease; [facility] 16:19 16:18 PMHx: Hypothyroidism; [facility] 16:19 16:18 PSHx: Coronary artery bypass graft; [facility] 16:19 16:18 PSHx: Coronary Angioplasty; [facility] 16:19 16:18 PSHx: pacemaker; [facility] 18:10 16:14 Derm: No signs and/or symptoms reported regarding the dermatologic system. Skin kc6 is intact, is healthy with good turgor, Skin is pink, warm \T\ dry. kc6 18:43 18:42 PMHx: Congenital heart disease; kc6 kc6 21:23 19:30 Urine 3400, (Franklin), output 3400, km10 km10
--- NOTE | 2025-03-17 22:38 | EDPHYS ---
Physician Documentation [facility] Name: Clare Oleary Age: 80 yrs Sex: Female : 1945 Arrival Date: 03/17/2025 Time: 16:01 Bed 15 Private MD: ED Physician Daniel Avila HPI: 03/17 17:00 This 80 yrs old Female presents to ER via EMS with complaints of Urinary Problem. ms3 17:00 80-year-old female presents to the emergency department via [facility] for ms3 hematuria, dysuria. Patient is normally on 4 L home O2 and saturations have been 94% for EMS. Patient denies fevers, chills. Patient does endorse chest pain. Historical: - PMHx: 18:42 Cerebrovascular accident; Diabetes mellitus; Hypertensive disorder; Myocardial kc6 infarction; Hypothyroidism; 18:42 Congestive heart failure; kc6 - Immunization history:: Adult Immunizations unknown. - Infectious Disease History:: Denies. - Social history:: Smoking status: Patient/guardian denies using tobacco. ROS: 17:00 Constitutional: Negative for fever, and chills. Cardiovascular: Negative for chest ms3 pain, and palpitations. Respiratory: Negative for shortness of breath, cough, wheezing, and pleuritic chest pain, Abdomen/GI: Negative for abdominal pain, nausea, vomiting, diarrhea, and constipation, 17:00 : Positive for urinary symptoms, urinary frequency, hematuria, burning with urination, Exam: 17:00 Constitutional: This is a well developed, well nourished patient who is awake, alert, ms3 and in no acute distress. Cardiovascular: Regular rate and rhythm with a normal S1 and S2. No gallops, murmurs, or rubs. Normal PMI, no JVD. No pulse deficits. Respiratory: Lungs have equal breath sounds bilaterally, clear to auscultation and percussion. No rales, rhonchi or wheezes noted. No increased work of breathing, no retractions or nasal flaring. Abdomen/GI: Soft, non-tender, with normal bowel sounds. No distension or tympany. No guarding or rebound. No evidence of tenderness throughout. Skin: Warm, dry with normal turgor. Normal color with no rashes, no lesions, and no evidence of cellulitis. 17:10 ECG was reviewed by the Attending Physician. ms3 Vital Signs: 16:14 BP 111 / 70; Pulse 105; Resp 18; Temp 97.9; Pulse Ox 95% 4 lpm ; Weight 81.65 kg; kn Height 5 ft. 0 in. ; 16:18 BP 101 / 78; Pulse 104; Resp 20; Pulse Ox 100% 4 lpm ; kn 17:53 BP 111 / 65; Pulse 100; Resp 20 S; Pulse Ox 96% on 4 lpm NC; kc6 21:12 BP 135 / 85; Pulse 94; Resp 18; Pulse Ox 97% on R/A; km10 23:32 BP 140 / 93; Pulse 93; Resp 20; Temp 98.6(A); Pulse Ox 96% on 3 lpm NC; km10 16:14 Body Mass Index 35.15 (81.65 kg, 152.4 cm) kn Story Coma Score: 23:32 Eye Response: spontaneous(4). Motor Response: obeys commands(6). Verbal Response: km10 oriented(5). Total: 15. MDM: 16:13 Medical Screening Exam initiated ms3 17:00 Differential diagnosis: dysfunctional uterine bleeding, urinary tract infection, MO vs ms3 MSK pain. 17:40 Transition of care: After a detail discussion of the patient's case, care is ms3 transferred to Daniel Avila MD. 21:11 Data reviewed: vital signs, nurses notes, lab test result(s), radiologic studies. rt Consideration of Admission/Observation Discussed admission with hospitalist, declines due to lack of urology coverage. I considered the following discharge prescriptions or medication management in the emergency department Medications were administered in the Emergency Department. See MAR. Independent interpretation of the following test(s) in the Emergency Department CT Scan: My interpretation is No kidney stone seen on interpretation of CT scan images. Care significantly affected by the following chronic conditions: Diabetes, Hypertension. Response to treatment: the patient's symptoms have mildly improved after treatment. 22:36 Management of patient was discussed with the following: Dr Castillo, hospitalist at [facility] accepts pt for transfer. . 03/17 16:15 Order name: Blood Culture Adult (2) ms3 03/17 16:15 Order name: CBC with Diff; Complete Time: 17:36 ms3 03/17 16:15 Order name: CMP; Complete Time: 18:24 ms3 03/17 16:15 Order name: Lactate w/ 2H reflex if indic.; Complete Time: 17:36 ms3 03/17 16:15 Order name: Protime (+inr); Complete Time: 18:24 ms3 03/17 16:15 Order name: Ptt, Activated; Complete Time: 18:24 ms3 03/17 16:15 Order name: UA Rfx Andre Cult if indicated; Complete Time: 19:44 ms3 03/17 16:16 Order name: Troponin High Sensitivity; Complete Time: 18:24 ms3 03/17 19:18 Order name: Urine Culture EDMS 03/17 16:16 Order name: CXR XRAY; Complete Time: 16:59 ms3 03/17 18:08 Order name: Abdomen ; Complete Time: 18:24 EDMS 03/17 16:15 Order name: EKG; Complete Time: 16:15 ms3 03/17 16:15 Order name: Accucheck; Complete Time: 17:20 ms3 03/17 16:15 Order name: Cardiac monitoring; Complete Time: 17:20 ms3 03/17 16:15 Order name: EKG - Nurse/Tech; Complete Time: 17:20 ms3 03/17 16:15 Order name: IV Saline Lock - Large Bore; Complete Time: 17:20 ms3 03/17 16:15 Order name: Labs collected and sent; Complete Time: 17:20 ms3 03/17 16:15 Order name: O2 Per Protocol; Complete Time: 17:20 ms3 03/17 16:15 Order name: O2 Sat Monitoring; Complete Time: 17:20 ms3 03/17 16:15 Order name: Vital Signs; Complete Time: 17:20 ms3 03/17 18:35 Order name: Bladder Irrigation; Complete Time: 19:02 rt EC:10 Rate is 102 beats/min. Rhythm is regular. QRS interval is prolonged. Clinical ms3 impression: Paced. Interpreted by me. Reviewed by me. Administered Medications: 19:02 Drug: NS 0.9% IV 500 ml 500 ml IV at 1 bolus once; to be given as a bolus over 30 kc6 minutes Volume: 500 ml; Route: IV; Rate: 1 bolus; Site: left forearm; 20:28 Drug: Rocephin IV 2 grams IV at calculated rate once; Given slow IV push per [employer] km10 instructions Route: IV; Rate: calculated rate; Site: left wrist; 22:49 Follow up: Response: No adverse reaction 20:29 Drug: Acetaminophen PO 1000 mg PO once Route: PO; km10 22:48 Follow up: Response: No adverse reaction; Pain is decreased 10 Disposition: 03/18 11:11 I was immediately available on-site in the Emergency Department for consultation in the ms3 care of the patient. Disposition Summary: 03/17/25 22:38 Transfer Ordered Notes: Transfer Location: [facility] kb Reason: Higher level of care kb Condition: Stable kb Problem: new kb Symptoms: are unchanged kb Accepting Physician: Dr Castillo(03/17/25 23:35) km10 Diagnosis - Hematuria, unspecified kb - UTI/ Urinary tract infection, site not specified kb Forms: - Medication Reconciliation Form kb - SBAR form kb Signatures: Dispatcher [employer] EDMS Alisha Ellison, SOLAR TECH-C SOLAR TECH-Nas Silva DO DO ms3 Melanie Cazares, NOHEMI RN kc6 Daniel Avila MD MD rt OSWALD MONROE RN RN kn Marilyn Moore RN RN km10 Corrections: (The following items were deleted from the chart) 03/17 16:15 16:15 BLOOD CULTURE*+BA.LAB.BRZ ordered. EDMS EDMS 16:15 16:15 CBC+H.LAB.BRZ ordered. EDMS EDMS 16:15 16:15 COMPREHENSIVE METABOLIC PANEL+C.LAB.BRZ ordered. EDMS EDMS 16:15 16:15 LACTATE+C.LAB.BRZ ordered. EDMS EDMS 16:15 16:15 PROTIME (+INR)+COAG.LAB.BRZ ordered. EDMS EDMS 16:15 16:15 PTT, ACTIVATED+COAG.LAB.BRZ ordered. EDMS EDMS 16:19 16:18 PMHx: Hypertensive disorder; kn 16:19 16:18 PMHx: diabetes mellitus; kn 16:19 16:18 PMHx: Congestive heart failure; [facility] 16:19 16:18 PMHx: Hyperlipidemia (Unknown); [facility] 16:19 16:18 PMHx: Gastroesophageal reflux disease; [facility] 16:19 16:18 PMHx: Hypothyroidism; [facility] 16:19 16:18 PSHx: Coronary artery bypass graft; [facility] 16:19 16:18 PSHx: Coronary Angioplasty; [facility] 16:19 16:18 PSHx: pacemaker; [facility] 18:08 17:32 Abdomen Pelvis W Con+CT.RAD.BRZ ordered. EDMS EDMS 18:43 18:42 PMHx: Congenital heart disease; kc6 kc6 23:35 22:38 Dr Castillo kb km10
[2025-03-17 23:44] VITALS: BP 140/93; TEMP 98.6; O2SAT 96
--- NOTE | 2025-03-18 12:18 | EKG ---
Test Date: 2025-03-17 Test Time: 16:43:49 Vocal Music Teacher: LEIGHTON MEASUREMENT RESULTS: Intervals: Rate: 102 AK: 168 QRSD: 170 QT: 372 QTc: 484 Index: P: 34 AK: 168 QRS: 209 T: 36 INTERPRETIVE STATEMENTS: Atrial-sensed ventricular-paced rhythm Abnormal ECG Compared to ECG 10/15/2024 20:03:46 No significant changes Electronically Signed On 03-18-25 12:16:57 CDT by Carlos Angeles
== END 2025-03-17 23:35 | disposition short-term general hospital (02) ==
LOC: EDBD 16:01 → ER 16:01
DX: N39.0 Urinary tract infection, site not specified (principal); R07.9 Chest pain, unspecified; I25.2 Old myocardial infarction
CPT/HCPCS: 93005; 87040 ×2; 87088; 85025; 81001; 87086; 36415; 85610; 83605; 85730; 84484; 80053; 74176; 71045; 51700; 96374; 99285; J0696; J7040